=== PATIENT | female | born 1960 | race Caucasian/White ===

== ENCOUNTER → 2020-02-10 11:22 | Outpatient (BNVA) | payer MEDICARE, SELFPAY | PROVIDERS: PCP Family Medicine; Referring Provider Family Medicine; Visit Provider Physician Assistant | DX: M17.0 Bilateral primary osteoarthritis of knee (principal) | CPT/HCPCS: 20610; 99213; J1020 ==

== ENCOUNTER → 2020-05-08 13:02 | Outpatient (BNVA) | payer MEDICARE, SELFPAY | PROVIDERS: PCP Family Medicine; Visit Provider Internal Medicine Cardiovascular Disease | DX: I50.20 Unspecified systolic (congestive) heart failure (principal); I42.8 Other cardiomyopathies; Z95.810 Presence of automatic (implantable) cardiac defibrillator | CPT/HCPCS: 93005; 99212 ==

== ENCOUNTER → 2020-05-29 13:46 | Outpatient (REF) | payer MEDICARE, SELFPAY ==
--- NOTE | 2020-05-29 13:56 | CA_ITS ---
Transthoracic Echocardiogram Patient (Last, First, Middle): Xiomara Avila A Gender: Female Date of : 1960 Age: 60 Procedure Date: 05/29/2020 Procedure Type: Transthoracic Echocardiogram Location: OP Height: 154.94 cm Weight: 80.74 kg BSA: 1.80 m2 Heart Rate: bpm BP: 124 / 58 mmHg Circulation Assistant: Referring MD: Lico Acevedo MD Bilingual Teacher: Lico Acevedo MD Symptoms: I50.20 - Unspecified systolic (congestive) heart failure Study Quality: Fair ECG Rhythm: Sinus Conclusions: - 1. Moderate to severe LV systolic dysfunction with impaired relaxation filling pattern 2. Moderate left atrial enlargement 3. Mild mitral regurgitation 4. Normal RV systolic pressure 5. No pericardial effusion Findings Left Ventricle Mildly increased left ventricular cavity size. There is normal left ventricular wall thickness. The left ventricular systolic function is moderate to severely decreased. The visually estimated ejection fraction is between 30-35%. Spectral Doppler is indicative of an impaired relaxation filling pattern. E/E prime ratio is between 8 and 15 consistent with indeterminate filling pressures. Right Ventricle Normal right ventricular cavity size and systolic function. There is an ICD wire seen in the right ventricle. Atria The left atrium is moderately dilated. There is no evidence of interatrial shunt. The right atrium is likely dilated. Aortic Valve Normal aortic valve structure and function. There is no aortic valve stenosis. There is no aortic valve regurgitation. Mitral Valve There is mild anterior and posterior mitral leaflet thickening. There is mild mitral valve regurgitation. There is no mitral valve stenosis. Pulmonic Valve The pulmonic valve was not well visualized. Tricuspid Valve Likely normal tricuspid valve structure and function. The right ventricular systolic pressure is normal. Normal right atrial pressure. There is no evidence of pulmonary hypertension. Great Vessels All visible segments of the aorta are normal in size. The pulmonary artery was not well visualized. Venous The inferior vena cava is normal in size and collapses greater than 50% with inspiration. Pericardium/Pleural There is no evidence of pericardial effusion. Prior Study Comparison No significant change compared to prior study dated: 01/14/2019. Diastolic filling appears to be more impaired relaxation is an pseudonormal on this study Measurements 2D Linear Measurements IVSd: 1.20 0.6-0.9/0.6-1.0 cm LVIDd: 5.64 3.9-5.3/4.2-5.9 cm LVIDd Index: 3.13 2.4-3.2/2.2-3.1 cm/m2 LVIDs: 4.75 2.0-3.6 cm LVPWd: 1.25 0.7-1.1 cm Ao Root: 3.20 2.1-3.5 cm LA Diam: 4.70 2.7-3.8/3.0-4.0 cm LAIDs Index: 2.61 1.5-2.3 cm/m2 LV Mass: 364.07 67-162/88-224 g LV Mass Index: 202.26 43-95/49-115 g/m2 LVOT Diam: 2.20 3.0+(-)1.3 cm 2D Systolic Function EF 4C: 36.10 >55% EF 2C: 30.60 >55% EF BiP: 33.10 >55% Mitral Valve MV Pk E: 0.66 MV PK A: 0.86 MV Decel Time: 194.00 E/A: 0.80 E'Lateral: 6.96 E'Medial: 5.51 E/E' Med: 12.00 E/E' Lat: 9.50 PHT: 57.00 MVA PHT: 3.86 Decel [place]: 3.41 Aortic Valve AoV Pk Ha: 1.42 AoV Mn Ha: 0.97 AoV VTI: 0.31 AoV Pk Grad: 8.00 Aov Mn Grad: 4.00 MILADIS Cont.VTI: 2.17 LVOT LVOT Pk Ha: 0.82 LVOT Mn Ha: 0.55 LVOT VTI: 0.18 LVOT Pk Grad: 3.00 LVOT Mn Grad: 1.00 LVOT Diam: 2.20 LVOT Area: 3.80 Diastolic Function MV Pk E: 0.66 MV Pk A: 0.86 E/A: 0.80 E'Medial: 5.51 E/E' Med: 12.00 E' Laterial: 6.96 E/E' Lat: 9.50 Tricuspid Valve TR Pk Ha: 2.47 TR Pk Grad: 24.00 RA Press: 3.00 RVSP: 27.00 Great Vessels Aorta Ao Root-2D: 3.20 2.0-3.7 cm Ao Asc: 3.20 2.1-3.4 cm Pulmonary Valve PV Pk Ha: 0.87 Peak PV Grad: 3.00 Updated in Other Vendor System with Status of Final Lico Acevedo MD electronically signed on 05/30/2020 2:46:14 PM with status of Final
== END ==
LOC: HO.CARD 13:46
PROVIDERS: PCP Family Medicine; Visit Provider Internal Medicine Cardiovascular Disease
DX: I42.8 Other cardiomyopathies (principal); I50.20 Unspecified systolic (congestive) heart failure
CPT/HCPCS: 93306

== ENCOUNTER 2020-10-15 08:37 | Outpatient (RCR) | payer MEDICARE, SELFPAY ==
--- NOTE | ~2020-10-15 | XR_ITS ---
EXAMINATION: XR TIBIA AND FIBULA, LEFT CLINICAL INFORMATION: Leg wound COMPARISON: None TECHNIQUE: AP and lateral views of the left tibia and fibula were obtained. FINDINGS: There is orthopedic hardware in the distal fibula with plate and screws. There are 2 screws seen in the medial malleolus. These extend posteriorly through the cortex of the posterior tibia. There is a single screw across the distal tibia and fibula. There is lucency seen adjacent to this screw questionable for evidence of loosening. No fracture is seen. There is increased sclerosis and cortical thickening of the distal tibia, particularly anteriorly questionable for possible chronic osteomyelitis. Versus changes related to trauma. There is soft tissue swelling adjacent to the medial malleolus and overlying dressing. No abnormal air collection or soft tissue foreign body is seen. There are degenerative changes at the knee joint. XR/XR tibia fibula LT 2V IMPRESSION: Orthopedic hardware in the distal tibia and fibula. Lucency adjacent to the screw across the distal tibia and fibula questionable for loosening. Increased sclerosis and cortical thickening of the distal tibia best appreciated on the lateral view questionable for evidence of chronic osteomyelitis. Soft tissue swelling adjacent to the medial ankle. No abnormal air collection or soft tissue foreign body.
[2020-10-19 10:58] LABS: MANUAL DIFF FLAG NO
[2020-10-19 11:18] LABS: Basophils Percent Auto 0.6 % (0-2); Eosinophils Absolute Auto 0.2 X10*3/uL (0.0-0.4); Hematocrit 37.7 % (37-47); Hemoglobin 12.3 g/dl (12.0-16.0); Imm Gran Abs Auto 0.02 X10*3/uL (0.00-0.03); Imm Gran Pct Auto 0.3 % (0.0-0.4); Lymphocytes Absolute Auto 1.8 X10*3/uL (1.2-4.9); Lymphocytes Percent Auto 28.6 % (20-40); Mean Corpuscular HGB Conc 32.6 g/dl (31.0-35.0); Mean Corpuscular Hemoglobin 29.1 pg (27.0-33.0); Mean Corpuscular Volume 89.1 fL (80-98); Mean Platelet Volume 11.1 fL (9.4-12.3); Monocytes Absolute Auto 0.6 X10*3/uL (0.1-1.2); Neutrophils Absolute Auto 3.7 X10*3/uL (2.0-8.3); Neutrophils Percent Auto 57.5 % (45-73); Platelet Count 255 X10*3/uL (160-400); Red Blood Count 4.23 X10*6/uL (4.20-5.50); Red Cell Distribution Width 13.9 % (11.0-16.0); White Blood Count 6.4 X10*3/uL (4.8-10.8)
[2020-10-19 11:28] LABS: Anion Gap 12 (12-20); Blood Urea Nitrogen 30 mg/dL (9-16); Calcium 9.1 mg/dL (8.4-10.2); Carbon Dioxide 25 mmol/L (22-29); Chloride 106 mmol/L (96-108); Estimated Glomerular Filt Rate 48; Glucose Random 112 mg/dL (60-115); Potassium 5.2 mmol/L (3.3-5.1); Sodium 138 mmol/L (135-145)
[2020-10-19 11:50] LABS: Erythrocyte Sedimentation Rate 21 MM/HR (0-20)
[2020-10-19 12:00] LABS: Estimated Average Glucose 123 mg/dL; Hemoglobin A1c % 5.9 %
== END 2021-01-16 15:45 | disposition home or self-care (01) ==
LOC: HO.WCC 08:37
PROVIDERS: Visit Provider Physician Assistant
DX: I87.032 Postthrombotic syndrome with ulcer and inflammation of left lower extremity (principal); L97.822 Non-pressure chronic ulcer of other part of left lower leg with fat layer exposed; T81.31XA Disruption of external operation (surgical) wound, not elsewhere classified, initial encounter; I73.9 Peripheral vascular disease, unspecified; I50.9 Heart failure, unspecified; Z87.891 Personal history of nicotine dependence; Z86.718 Personal history of other venous thrombosis and embolism; Z95.0 Presence of cardiac pacemaker
CPT/HCPCS: 11042; 36415; 73590; 80048; 83036; 84134; 85025; 85652; 86140; 99212

== ENCOUNTER 2020-11-22 09:37 | Outpatient (REF) | payer MEDICARE, SELFPAY ==
--- NOTE | ~2020-11-22 | US_ITS ---
EXAMINATION: Left LOWER EXTREMITY DUPLEX CLINICAL INFORMATION: Nonhealing wound TECHNIQUE: Doppler techniques with wave form analysis and measurement of velocities in the left common femoral, profunda femoral, superficial femoral, popliteal and tibial arteries. The study was performed only at rest. COMPARISON: None FINDINGS: a) AT REST: LEFT LEG: Left direct duplex Doppler findings: There is narrowing in the left mid and distal superficial femoral and popliteal arteries. * Common femoral artery: 119 cm/s, Diastolic flow reversal: Yes * Superficial femoral artery (proximal, mid, distal): 75, 116 and 95 cm/s, Diastolic flow reversal: No. Monophasic.. * Popliteal artery: 100 cm/s, Diastolic flow reversal: No. Monophasic. * Posterior tibial artery: 76 cm/s, Diastolic flow reversal: No. Monophasic. US/US arterial duplex LE LT IMPRESSION: Narrowing of the mid and distal superficial femoral and popliteal arteries. Normal peak systolic velocities. Monophasic flow in the SFA, popliteal and posterior tibial arteries.
--- NOTE | ~2020-11-22 | US_ITS ---
EXAMINATION: US VENOUS ULTRASOUND WITH DOPPLER LOWER EXTREMITY, LEFT CLINICAL INFORMATION: Nonhealing wounds, insufficiency. COMPARISON: None TECHNIQUE: Ultrasound of the deep veins is performed from the hip to the calf with compression sonography and color and pulse Doppler assessment. Spectral analysis with color-flow imaging is performed. FINDINGS: There is normal venous compression and respiratory variation and augmented flow. The visualized common femoral vein, superficial femoral vein, profunda femoral vein, popliteal vein, and the trifurcation region shows no evidence of deep venous thrombosis. There is no significant popliteal fossa cyst. If the patient's symptoms persist, followup ultrasound in 5 days 7 days might be of value to exclude proximal propagation from a non-visualized calf vein. US/US venous duplex LE IMPRESSION: No DVT demonstrated in the left lower extremity.
== END 2020-11-22 09:38 | disposition home or self-care (01) ==
LOC: HO.US 09:37
PROVIDERS: PCP Family Medicine; Visit Provider Physician Assistant
DX: I73.9 Peripheral vascular disease, unspecified (principal); I87.012 Postthrombotic syndrome with ulcer of left lower extremity
CPT/HCPCS: 93926; 93971

== ENCOUNTER → 2021-04-01 09:59 | Outpatient (BNVA) | payer MEDICARE, SELFPAY | PROVIDERS: PCP Family Medicine; Referring Provider Family Medicine; Visit Provider Internal Medicine Cardiovascular Disease | DX: Z45.02 Encounter for adjustment and management of automatic implantable cardiac defibrillator (principal); I50.20 Unspecified systolic (congestive) heart failure | CPT/HCPCS: 99212 ==

== ENCOUNTER → 2021-05-27 09:31 | Outpatient (REF) | payer MEDICARE, SELFPAY ==
--- NOTE | 2021-05-27 09:34 | CA_ITS ---
Transthoracic Echocardiogram Patient (Last, First, Middle): Xiomara Avila A Gender: Female Date of : 1960 Age: 61 Procedure Date: 05/27/2021 Procedure Type: Transthoracic Echocardiogram Location: OP Height: 152.4 cm Weight: 79.38 kg BSA: 1.76 m2 Heart Rate: bpm BP: 110 / 70 mmHg Dumper Bailer Operator: YANA Referring MD: Lico Acevedo MD Sales Director: Lico Acevedo MD Symptoms: I50.20 - Unspecified systolic (congestive) heart failure Study Quality: Fair ECG Rhythm: Sinus Conclusions: - 1. Moderate to severe LV systolic dysfunction with LVEF of 30 35% with grade 1 diastolic dysfunction 2. Mildly dilated left atrium 3. Mild mitral regurgitation 4. Normal RV systolic pressure 5. No pericardial effusion Findings Left Ventricle Moderately increased left ventricular cavity size. There is normal left ventricular wall thickness. The left ventricular systolic function is moderate to severely decreased. The visually estimated ejection fraction is between 30-35%. There is severe global hypokinesis. Spectral Doppler is indicative of an impaired relaxation filling pattern. E/E prime ratio is <8, consistent with normal filling pressures. Evidence suggests grade I (mild) diastolic dysfunction. Right Ventricle Normal right ventricular cavity size and systolic function. There is an ICD wire seen in the right ventricle. Atria The left atrium is mildly dilated. There is no evidence of interatrial shunt. The right atrium is normal in size. Aortic Valve Normal aortic valve structure and function. There is no aortic valve stenosis. There is no aortic valve regurgitation. Mitral Valve Normal mitral valve structure and function. There is mild mitral valve regurgitation. There is no mitral valve stenosis. Pulmonic Valve The pulmonic valve was not well visualized. Tricuspid Valve Normal tricuspid valve structure. There is mild tricuspid valve regurgitation. The right ventricular systolic pressure is normal. The right ventricular systolic pressure is 17 mmHg. Normal right atrial pressure. There is no evidence of pulmonary hypertension. Great Vessels All visible segments of the aorta are normal in size. The pulmonary artery was not well visualized. Venous The inferior vena cava is normal in size and collapses greater than 50% with inspiration. Pericardium/Pleural There is no evidence of pericardial effusion. Prior Study Comparison No significant change compared to prior study dated: 05/29/2020. Measurements 2D Linear Measurements IVSd: 0.96 0.6-0.9/0.6-1.0 cm LVIDd: 6.17 3.9-5.3/4.2-5.9 cm LVIDd Index: 3.51 2.4-3.2/2.2-3.1 cm/m2 LVIDs: 5.04 2.0-3.6 cm LVPWd: 1.16 0.7-1.1 cm Ao Root: 3.30 2.1-3.5 cm LA Diam: 4.00 2.7-3.8/3.0-4.0 cm LAIDs Index: 2.27 1.5-2.3 cm/m2 LV Mass: 348.45 67-162/88-224 g LV Mass Index: 197.98 43-95/49-115 g/m2 LVOT Diam: 2.20 3.0+(-)1.3 cm 2D Systolic Function EF 4C: 29.00 >55% EF 2C: 43.30 >55% EF BiP: 33.40 >55% Mitral Valve MV Pk E: 0.47 MV PK A: 0.73 MV Decel Time: 310.00 E/A: 0.60 E'Lateral: 6.96 E'Medial: 5.44 E/E' Med: 8.50 E/E' Lat: 6.70 PHT: 65.00 MVA PHT: 3.38 Decel [place]: 4.23 Aortic Valve AoV Pk Ha: 1.26 AoV Mn Ha: 0.95 AoV VTI: 0.31 AoV Pk Grad: 6.00 Aov Mn Grad: 4.00 MILADIS Cont.VTI: 2.23 LVOT LVOT Pk Ha: 0.82 LVOT Mn Ha: 0.60 LVOT VTI: 0.18 LVOT Pk Grad: 3.00 LVOT Mn Grad: 2.00 LVOT Diam: 2.20 LVOT Area: 3.80 Diastolic Function MV Pk E: 0.47 MV Pk A: 0.73 E/A: 0.60 E'Medial: 5.44 E/E' Med: 8.50 E' Laterial: 6.96 E/E' Lat: 6.70 Right Ventricle TAPSE (mm): 23.30 TVS' Ha: 7.94 Tricuspid Valve TR Pk Ha: 1.89 TR Pk Grad: 14.00 RA Press: 3.00 RVSP: 17.00 Great Vessels Aorta Ao Root-2D: 3.30 2.0-3.7 cm Ao Asc: 3.10 2.1-3.4 cm Ao Arch: 2.90 Updated in Other Vendor System with Status of Final Lico Acevedo MD electronically signed on 05/28/2021 11:39:40 AM with status of Final
== END ==
LOC: HO.CARD 09:31
PROVIDERS: PCP Family Medicine; Visit Provider Internal Medicine Cardiovascular Disease
DX: I50.20 Unspecified systolic (congestive) heart failure (principal)
CPT/HCPCS: 93306

== ENCOUNTER 2021-10-07 09:30 | Outpatient (REF) | payer MEDICARE, SELFPAY ==
[2021-10-07 11:07] LABS: MANUAL DIFF FLAG NO
[2021-10-07 11:18] LABS: Basophils Percent Auto 0.5 % (0-2); Eosinophils Absolute Auto 0.3 X10*3/uL (0.0-0.4); Eosinophils Percent Auto 3.4 % (0-4); Hematocrit 40.2 % (37.0-47.0); Hemoglobin 12.5 g/dl (12.0-16.0); Imm Gran Abs Auto 0.02 X10*3/uL (0.00-0.03); Imm Gran Pct Auto 0.3 % (0.0-0.4); Lymphocytes Absolute Auto 2.5 X10*3/uL (1.2-4.9); Lymphocytes Percent Auto 33.9 % (20-40); Mean Corpuscular HGB Conc 31.1 g/dl (31.0-35.0); Mean Corpuscular Hemoglobin 28.3 pg (27.0-33.0); Mean Platelet Volume 11.4 fL (9.4-12.3); Monocytes Absolute Auto 0.7 X10*3/uL (0.1-1.2); Monocytes Percent Auto 9.7 % (2-11); Neutrophils Absolute Auto 3.8 x10*3/uL (2.0-8.3); Neutrophils Percent Auto 52.2 % (45-73); Platelet Count 267 X10*3/uL (160-400); Red Blood Count 4.42 X10*6/uL (4.20-5.50); Red Cell Distribution Width 13.3 % (11.0-16.0); White Blood Count 7.3 X10*3/uL (4.8-10.8)
[2021-10-07 12:06] LABS: Alanine Aminotransferase 15 U/L (0-31); Albumin Level 3.8 g/dL (3.5-5.0); Alkaline Phosphatase 84 U/L (39-117); Anion Gap 14 (12-20); Aspartate Amino Transferase 16 U/L (5-31); Bilirubin Total 0.9 mg/dL (0.0-1.0); Blood Urea Nitrogen 22 mg/dL (9-16); Calcium 8.8 mg/dL (8.4-10.2); Carbon Dioxide 25 mmol/L (22-29); Chloride 106 mmol/L (96-108); Cholesterol 180 mg/dL; Estimated Glomerular Filt Rate > 60; Glucose Fasting 95 mg/dL (60-99); HDL Cholesterol 45 mg/dL; LDL Cholesterol Calculated 122 mg/dl; Sodium 141 mmol/L (135-145); TSH reflex Free T4 1.09 uIU/mL (0.32-4.0); Total Protein 6.3 g/dL (6.5-8.0); Triglycerides 68 mg/dL
== END 2021-10-07 09:31 | disposition home or self-care (01) ==
LOC: HO.WFDLDS 09:30
PROVIDERS: Visit Provider Family Medicine
DX: Z00.00 Encounter for general adult medical examination without abnormal findings (principal)
CPT/HCPCS: 36415; 80053; 80061; 84443; 85025

== ENCOUNTER 2022-05-12 11:01 | Outpatient (REF) | payer MEDICARE, SELFPAY ==
[2022-05-12 12:45] LABS: Appearance Urine Turbid; Color Urine Yellow; Glucose Urine UA Negative (Negative); Leukocyte Esterase Urine Large (3+) (Negative); Nitrite Urine Negative (Negative); PH 5.5 (5.0-9.0); UMIC TRIGGER UA YES; Urine Blood Trace (Negative); Urine Ketones Negative (Negative); Urine Protein Negative (Neg-Trace)
[2022-05-12 12:49] LABS: Bacteria Urine None Seen (None Seen); Hyaline Casts Urine 0-2 /LPF (0-2); RBC Urine 0-2 /HPF (0-2); WBC Urine >50 /HPF (0-5)
== END 2022-05-12 11:02 | disposition home or self-care (01) ==
LOC: HO.LAB 11:01
PROVIDERS: PCP Family Medicine; Referring Provider Family Medicine; Visit Provider Internal Medicine Cardiovascular Disease
DX: I50.20 Unspecified systolic (congestive) heart failure (principal); Z95.810 Presence of automatic (implantable) cardiac defibrillator; Z45.018 Encounter for adjustment and management of other part of cardiac pacemaker; Z79.899 Other long term (current) drug therapy
CPT/HCPCS: 81001; 93005; 99212

== ENCOUNTER → 2022-05-26 12:42 | Outpatient (REF) | payer MEDICARE, MEDICAID, SELFPAY ==
--- NOTE | 2022-05-26 12:44 | CA_ITS ---
Transthoracic Echocardiogram Patient (Last, First, Middle): Xiomara Avila A Gender: Female Date of : 1960 Age: 62 Procedure Date: 05/26/2022 Procedure Type: Transthoracic Echocardiogram Location: OP Height: 154.94 cm Weight: 82.56 kg BSA: 1.81 m2 Heart Rate: 60 bpm BP: 110 / 70 mmHg Grout Worker: ASPEN Referring MD: Lico Acevedo MD Symptoms: I50.20 - Unspecified systolic (congestive) heart failure Study Quality: Adequate ECG Rhythm: Sinus Conclusions: - The left ventricular systolic function is severely decreased. The visually estimated ejection fraction is between 25-30%. - No obvious valvular pathology seen on this study. Findings Left Ventricle Moderately increased left ventricular cavity size. There is normal left ventricular wall thickness. The left ventricular systolic function is severely decreased. The visually estimated ejection fraction is between 25 30%. There is severe global hypokinesis. E/E prime ratio is between 8 and 15 consistent with indeterminate filling pressures. Evidence suggests grade I (mild) diastolic dysfunction. Right Ventricle Normal right ventricular cavity size and systolic function. Atria Both atria are normal in size. Aortic Valve There is a normal trileaflet aortic valve. There is no aortic valve stenosis. There is no aortic valve regurgitation. Mitral Valve The mitral valve appears normal. There is mild mitral valve regurgitation. There is no mitral valve stenosis. Pulmonic Valve The pulmonic valve is likely normal. Tricuspid Valve Normal tricuspid valve structure. There is trace tricuspid valve regurgitation. There is no evidence of pulmonary hypertension. Great Vessels The asc aorta is normal in size. Venous The inferior vena cava is normal in size and collapses greater than 50% with inspiration. Pericardium/Pleural There is no evidence of pericardial effusion. Prior Study Comparison No significant change compared to prior study dated: 05/27/2021. Slight change in LVEF, but could also be inter-observer variability. Recommendations, Care & Conclusions No obvious valvular pathology seen on this study. Measurements 2D Linear Measurements IVSd: 1.00 0.6-0.9/0.6-1.0 cm LVIDd: 5.85 3.9-5.3/4.2-5.9 cm LVIDd Index: 3.23 2.4-3.2/2.2-3.1 cm/m2 LVIDs: 4.65 2.0-3.6 cm LVPWd: 0.97 0.7-1.1 cm LA Diam: 3.80 2.7-3.8/3.0-4.0 cm LAIDs Index: 2.10 1.5-2.3 cm/m2 LV Mass: 288.18 67-162/88-224 g LV Mass Index: 159.21 43-95/49-115 g/m2 LVOT Diam: 2.30 3.0+(-)1.3 cm 2D Systolic Function EF 4C: 41.20 >55% EF 2C: 39.60 >55% Mitral Valve MV Pk E: 0.56 MV PK A: 0.75 MV Decel Time: 222.00 E/A: 0.70 E'Lateral: 5.48 E'Medial: 3.75 E/E' Med: 15.00 E/E' Lat: 10.20 PHT: 65.00 MVA PHT: 3.38 Decel [place]: 2.53 Aortic Valve AoV Pk Ha: 1.20 AoV Mn Ha: 0.93 AoV VTI: 0.26 AoV Pk Grad: 6.00 Aov Mn Grad: 4.00 MILADIS Cont.VTI: 2.65 LVOT LVOT Pk Ha: 0.80 LVOT Mn Ha: 0.60 LVOT VTI: 0.16 LVOT Pk Grad: 3.00 LVOT Mn Grad: 2.00 LVOT Diam: 2.30 LVOT Area: 4.15 Diastolic Function MV Pk E: 0.56 MV Pk A: 0.75 E/A: 0.70 E'Medial: 3.75 E/E' Med: 15.00 E' Laterial: 5.48 E/E' Lat: 10.20 Right Ventricle TAPSE (mm): 18.30 TVS' Ha: 11.30 Tricuspid Valve TR Pk Ha: 1.84 TR Pk Grad: 14.00 RA Press: 3.00 RVSP: 17.00 Great Vessels Aorta Sinus of Valsalva: 3.50 2.0-3.5 cm Ao Asc: 3.10 2.1-3.4 cm Pulmonary Valve PV Pk Ha: 0.85 Peak PV Grad: 3.00 Updated in Other Vendor System with Status of Final Marco Burrows MD electronically signed on 05/27/2022 11:01:34 AM with status of Final
== END ==
LOC: HO.CARD 12:42
PROVIDERS: PCP Family Medicine; Visit Provider Internal Medicine Cardiovascular Disease
DX: I50.20 Unspecified systolic (congestive) heart failure (principal)
CPT/HCPCS: 93306

== ENCOUNTER → 2022-07-17 09:43 | Outpatient (BNVA) | payer MEDICARE, MEDICAID, SELFPAY | PROVIDERS: PCP Family Medicine; Visit Provider Orthopaedic Surgery | DX: M17.0 Bilateral primary osteoarthritis of knee (principal) | CPT/HCPCS: 20610; 99212; J1100 ==

== ENCOUNTER → 2022-11-06 09:53 | Outpatient (BNVA) | payer MEDICARE, MEDICAID, SELFPAY | PROVIDERS: PCP Family Medicine; Referring Provider Family Medicine; Visit Provider Internal Medicine Cardiovascular Disease | DX: I50.20 Unspecified systolic (congestive) heart failure (principal); I42.8 Other cardiomyopathies; Z95.810 Presence of automatic (implantable) cardiac defibrillator | CPT/HCPCS: 99212 ==

== ENCOUNTER 2022-11-21 09:30 | Outpatient (REF) | payer MEDICARE, MEDICAID, SELFPAY ==
[2022-11-21 12:51] LABS: Appearance Urine Clear; Color Urine Straw; Glucose Urine UA 500 mg/dL (Negative); Leukocyte Esterase Urine Negative (Negative); Nitrite Urine Negative (Negative); PH 6.5 (5.0-9.0); Specific Gravity - Urine <= 1.005 (1.005-1.025); Urine Blood Negative (Negative); Urine Ketones Negative (Negative); Urine Protein Negative (Neg-Trace)
[2022-11-21 14:31] LABS: Creatinine Urine 16.15 mg/dL; Microalbumin Urine < 5.0 mg/L
[2022-11-21 14:45] LABS: Alanine Aminotransferase 20 U/L (0-31); Albumin Level 3.9 g/dL (3.5-5.0); Alkaline Phosphatase 96 U/L (39-117); Anion Gap 13 (12-20); Aspartate Amino Transferase 23 U/L (5-31); Bilirubin Total 0.4 mg/dL (0.0-1.0); Blood Urea Nitrogen 21 mg/dL (9-16); Calcium 9.4 mg/dL (8.4-10.2); Carbon Dioxide 26 mmol/L (22-29); Chloride 104 mmol/L (96-108); Cholesterol 189 mg/dL; Estimated Glomerular Filt Rate > 60; Glucose Fasting 122 mg/dL (60-99); HDL Cholesterol 54 mg/dL; LDL Cholesterol Calculated 117 mg/dl; Potassium 3.5 mmol/L (3.3-5.1); Sodium 139 mmol/L (135-145); Total Protein 6.9 g/dL (6.5-8.0); Triglycerides 93 mg/dL
[2022-11-21 15:00] LABS: TSH reflex Free T4 1.09 uIU/mL (0.32-4.0)
[2022-11-21 15:35] LABS: B Type Natriuretic Peptide 61 pg/mL (<100)
== END 2022-11-21 09:31 | disposition home or self-care (01) ==
LOC: HO.WFDLDS 09:30
PROVIDERS: Internal Medicine Cardiovascular Disease; Visit Provider Family Medicine
DX: Z00.00 Encounter for general adult medical examination without abnormal findings (principal); M17.0 Bilateral primary osteoarthritis of knee; I11.0 Hypertensive heart disease with heart failure; I50.20 Unspecified systolic (congestive) heart failure
CPT/HCPCS: 36415; 80053; 80061; 81003; 82043; 83880; 84443

== ENCOUNTER → 2022-11-26 23:59 | Outpatient (BNV) | payer MEDICARE, MEDICAID, SELFPAY ==
--- NOTE | 2022-12-03 14:37 | MHC.OFFVIS ---
Intake Intake Visit Reasons: Remote HF Monitoring- [employer] Allergies No Known Allergies Allergy (Verified 07/17/22 10:03) PFS Medical History Edema Heart failure with reduced ejection fraction ICD (implantable cardioverter-defibrillator) in place Nonischemic cardiomyopathy Surgical History History of implantable cardiac defibrillator (ICD) (~07/2015) History of left knee surgery History of surgery on lower extremity (2020) Hx of cholecystectomy Family History Father CVD (cardiovascular disease) Mother CVD (cardiovascular disease) Pulmonary embolism Brother No problems noted. Brother No problems noted. Son No problems noted. Daughter No problems noted. Social History Housing: House Patient Tobacco Use Status: Current someday Tobacco user e-Cigarette/Vaping Use: Never Used Second Hand Smoke Exposure: No service: No Current occupational status: disabled Current occupational exposures/hazards: No Cognitive needs: No Hearing needs: No Vision needs: No Office Procedures Cardiac Device Check Cardiac Device Check Details: Remote heart failure report generated 11/26/2022. Heart failure parameters are stable [id number] Cardiac Device Interrogation, cardio physiologic monitor Procedure code (CPT) selection complete Coding Level of Care Code Procedure Only Diagnoses CPT Codes Cardiac Device Check - Cardiac Device 15: [id number] Cardiac Device Interrogation, cardio physiologic monitor ([id number])
== END ==
PROVIDERS: PCP Family Medicine; Visit Provider Internal Medicine Cardiovascular Disease
DX: I50.20 Unspecified systolic (congestive) heart failure (principal); Z95.810 Presence of automatic (implantable) cardiac defibrillator
CPT/HCPCS: 93297

== ENCOUNTER → 2022-12-30 23:59 | Outpatient (BNV) | payer MEDICARE, MEDICAID, SELFPAY ==
--- NOTE | 2023-01-01 11:20 | MHC.OFFVIS ---
Intake Intake Visit Reasons: Remote HF monitoring- [employer] Allergies No Known Allergies Allergy (Verified 12/16/22 11:03) PFSH Medical History Edema Heart failure with reduced ejection fraction ICD (implantable cardioverter-defibrillator) in place Nonischemic cardiomyopathy Surgical History History of implantable cardiac defibrillator (ICD) (~07/2015) History of left knee surgery History of surgery on lower extremity (2020) Hx of cholecystectomy Family History Father CVD (cardiovascular disease) Mother CVD (cardiovascular disease) Pulmonary embolism Brother No problems noted. Brother No problems noted. Son No problems noted. Daughter No problems noted. Social History Housing: House Patient Tobacco Use Status: Current someday Tobacco user Tobacco use type: Cigarette e-Cigarette/Vaping Use: Never Used Second Hand Smoke Exposure: No service: No Current occupational status: disabled Current occupational exposures/hazards: No Cognitive needs: No Hearing needs: No Vision needs: No Office Procedures Cardiac Device Check Cardiac Device Check Details: Remote heart failure report generated 12/30/2022. Heart failure parameters are stable [id number] Cardiac Device Interrogation, cardio physiologic monitor Procedure code (CPT) selection complete Coding Level of Care Code Procedure Only Diagnoses CPT Codes Cardiac Device Check - Cardiac Device 15: [id number] Cardiac Device Interrogation, cardio physiologic monitor ([id number])
== END ==
PROVIDERS: PCP Family Medicine; Visit Provider Internal Medicine Cardiovascular Disease
DX: I50.20 Unspecified systolic (congestive) heart failure (principal); Z95.810 Presence of automatic (implantable) cardiac defibrillator
CPT/HCPCS: 93297

== ENCOUNTER → 2023-02-02 23:59 | Outpatient (BNV) | payer MEDICARE, MEDICAID, SELFPAY ==
--- NOTE | 2023-02-02 12:58 | MHC.OFFVIS ---
Intake Intake Visit Reasons: Remote ICD Check- [employer] Allergies No Known Allergies Allergy (Verified 12/16/22 11:03) [facility] Medical History Edema Heart failure with reduced ejection fraction ICD (implantable cardioverter-defibrillator) in place Nonischemic cardiomyopathy Surgical History History of implantable cardiac defibrillator (ICD) (~07/2015) History of left knee surgery History of surgery on lower extremity (2020) Hx of cholecystectomy Family History Father CVD (cardiovascular disease) Mother CVD (cardiovascular disease) Pulmonary embolism Brother No problems noted. Brother No problems noted. Son No problems noted. Daughter No problems noted. Social History Housing: House Patient Tobacco Use Status: Current someday Tobacco user Tobacco use type: Cigarette e-Cigarette/Vaping Use: Never Used Second Hand Smoke Exposure: No service: No Current occupational status: disabled Current occupational exposures/hazards: No Cognitive needs: No Hearing needs: No Vision needs: No Office Procedures Cardiac Device Check Cardiac Device Check Details: Remote ICD report generated 02/02/2023. ICD function is adequate [id number] Cardiac Interrogation, implant defibrillator w/interim Procedure code (CPT) selection complete Coding Level of Care Code Procedure Only CPT Codes Cardiac Device Check - Cardiac Device 13: [id number] Cardiac Interrogation, implant defibrillator w/interim ([id number])
== END ==
PROVIDERS: PCP Family Medicine; Visit Provider Internal Medicine Cardiovascular Disease
DX: I42.8 Other cardiomyopathies (principal); Z95.0 Presence of cardiac pacemaker
CPT/HCPCS: 93295

== ENCOUNTER → 2023-02-02 23:59 | Outpatient (BNV) | payer MEDICARE, MEDICAID, SELFPAY ==
--- NOTE | 2023-02-02 12:59 | MHC.OFFVIS ---
Intake Intake Visit Reasons: Remote HF Monitoring- [employer] Allergies No Known Allergies Allergy (Verified 12/16/22 11:03) PFSH Medical History Edema Heart failure with reduced ejection fraction ICD (implantable cardioverter-defibrillator) in place Nonischemic cardiomyopathy Surgical History History of implantable cardiac defibrillator (ICD) (~07/2015) History of left knee surgery History of surgery on lower extremity (2020) Hx of cholecystectomy Family History Father CVD (cardiovascular disease) Mother CVD (cardiovascular disease) Pulmonary embolism Brother No problems noted. Brother No problems noted. Son No problems noted. Daughter No problems noted. Social History Housing: House Patient Tobacco Use Status: Current someday Tobacco user Tobacco use type: Cigarette e-Cigarette/Vaping Use: Never Used Second Hand Smoke Exposure: No service: No Current occupational status: disabled Current occupational exposures/hazards: No Cognitive needs: No Hearing needs: No Vision needs: No Office Procedures Cardiac Device Check Cardiac Device Check Details: Remote heart failure report generated 02/02/2023. Heart failure parameters are stable [id number] Cardiac Device Interrogation, cardio physiologic monitor Procedure code (CPT) selection complete Coding Level of Care Code Procedure Only CPT Codes Cardiac Device Check - Cardiac Device 15: [id number] Cardiac Device Interrogation, cardio physiologic monitor ([id number])
== END ==
PROVIDERS: PCP Family Medicine; Visit Provider Internal Medicine Cardiovascular Disease
DX: I50.20 Unspecified systolic (congestive) heart failure (principal); Z95.810 Presence of automatic (implantable) cardiac defibrillator
CPT/HCPCS: 93297

== ENCOUNTER 2023-02-20 10:09 | Outpatient (AMB) | payer MEDICARE, MEDICAID, SELFPAY ==
--- NOTE | 2023-02-20 10:13 | A.OFFVIS_ITS ---
Intake Vital Signs 02/20/23 10:19 Height 5 ft 1 in Weight 205 lb BMI 38.7 Intake Visit Reasons: OV-B/L knee injection-last 07/17/22 Intake Note: Xiomara 62 yr old female presents today for her bilateral O.A knee pain, last injection 07/17/22. Patient reports last injeciton provided her good relief for about 3-4 months. She is requesting to repeat injections. Allergies No Known Allergies Allergy (Verified 02/20/23 10:19) HPI OV-B/L knee injection-last 07/17/22 HPI Details 63-year-old female who returns to the [facility] today for a bilateral knee pain. She had her last injection on 07/17/22 which provided her relief for about 4 months. She would like to repeat the injection. [facility] Medical History Edema Heart failure with reduced ejection fraction ICD (implantable cardioverter-defibrillator) in place Nonischemic cardiomyopathy Surgical History History of surgery on lower extremity (2020) History of implantable cardiac defibrillator (ICD) (~07/2015) History of left knee surgery Hx of cholecystectomy Family History Father CVD (cardiovascular disease) Mother CVD (cardiovascular disease) Pulmonary embolism Brother No problems noted. Brother No problems noted. Son No problems noted. Daughter No problems noted. Social History Housing: House Patient Tobacco Use Status: Current someday Tobacco user Tobacco use type: Cigarette e-Cigarette/Vaping Use: Never Used Second Hand Smoke Exposure: No service: No Current occupational status: disabled Current occupational exposures/hazards: No Cognitive needs: No Hearing needs: No Vision needs: No Review of Systems Const All systems reviewed & are unremarkable except as noted in HPI and below Physical Exam Vital Signs: BMI result Body Mass Index 38.7 Extrem Right lower extremity: normal to inspection, full ROM (with crepitus) and no joint enlargement Left lower extremity: normal to inspection, full ROM and no joint enlargement Office Procedures Joint Injection/Drain Joint Injection/Drain Primary Site: right knee Secondary Site: left knee Prep: site was prepped using aseptic technique, ethochloride spray was applied and injection warnings given Injected: 80 mg of, DepoMedrol, with 8 mL of, 1% plain lidocaine and in the joint Approach Used: anterolateral Procedure: The patient tolerated the procedure well and there was some relief with the local anesthesia Coding 86421 - Glenohumeral/Tronchanteric Bursa/Intraarticular Procedure code (CPT) selection complete Results Reviewed Results Reviewed: 02/20/23 10:18 Lidocaine HCl 2 % MPF [Xylocaine 2 % MPF] 5 ml .ROUTE .STK-MED ONE methylPREDNISolone acetate [DEPO-MedroL] 80 mg .ROUTE .STK-MED ONE Assessment & Plan Assessment & Plan (1) Bilateral primary osteoarthritis of knee: Code(s): M17.0 - Bilateral primary osteoarthritis of knee Plan We discussed options today which include steroid injection. They did consent to move forward with the bilateral knee injection, which was tolerated well. I recommended rest, ice and elevation and OTC anti-inflammatories PRN for discomfort. If symptoms persist or worsens over the next 6-8 weeks, patient will contact the office, otherwise follow-up as needed. Patient Instructions: Scribed for Maria Eugenia Alcazar PA-C, by Sincere Keith emergency medical dispatcher, on 02/20/2023 at 10:15 AM DIANA. Maria Eugenia Napoles PA-C, have personally reviewed and agree with the information entered by the scribe. Coding Level of Care Code Est Pt Level 3 (73719) Diagnoses Bilateral primary osteoarthritis of knee M17.0 CPT Codes Coding - Joint 7: 74022 - Glenohumeral/Tronchanteric Bursa/Intraarticular ([id number])
[2023-02-20 10:19] VITALS: BMI 38.7
== END 2023-02-20 11:11 | disposition home or self-care (01) ==
PROVIDERS: PCP Family Medicine; Visit Provider Physician Assistant
DX: M17.0 Bilateral primary osteoarthritis of knee (principal)
CPT/HCPCS: 20610; 99213

== ENCOUNTER → 2023-02-20 10:09 | Outpatient (BNVA) | payer MEDICARE, MEDICAID, SELFPAY | PROVIDERS: PCP Family Medicine; Visit Provider Physician Assistant | DX: M17.0 Bilateral primary osteoarthritis of knee (principal); R60.0 Localized edema; I42.8 Other cardiomyopathies; I50.20 Unspecified systolic (congestive) heart failure; F17.210 Nicotine dependence, cigarettes, uncomplicated; Z95.810 Presence of automatic (implantable) cardiac defibrillator | CPT/HCPCS: 20610; 99212; J1040 ==

== ENCOUNTER → 2023-03-08 23:59 | Outpatient (BNV) | payer MEDICARE, MEDICAID, SELFPAY ==
--- NOTE | 2023-03-09 15:14 | A.OFFVIS_ITS ---
Intake Intake Visit Reasons: Remote HF Monitoring- Medtronic Allergies No Known Allergies Allergy (Verified 02/20/23 10:19) [facility] Medical History Edema Heart failure with reduced ejection fraction ICD (implantable cardioverter-defibrillator) in place Nonischemic cardiomyopathy Surgical History History of surgery on lower extremity (2020) History of implantable cardiac defibrillator (ICD) (~07/2015) History of left knee surgery Hx of cholecystectomy Family History Father CVD (cardiovascular disease) Mother CVD (cardiovascular disease) Pulmonary embolism Brother No problems noted. Brother No problems noted. Son No problems noted. Daughter No problems noted. Social History Housing: House Patient Tobacco Use Status: Current someday Tobacco user Tobacco use type: Cigarette e-Cigarette/Vaping Use: Never Used Second Hand Smoke Exposure: No service: No Current occupational status: disabled Current occupational exposures/hazards: No Cognitive needs: No Hearing needs: No Vision needs: No Office Procedures Cardiac Device Check Cardiac Device Check Details: Remote heart failure report generated 03/08/2023. Heart failure parameters are stable [id number] Cardiac Device Interrogation, cardio physiologic monitor Procedure code (CPT) selection complete Coding Level of Care Code Procedure Only CPT Codes Cardiac Device Check - Cardiac Device 15: 29516-Snsrbi Cardiac Device Interrogation, cardio physiologic monitor ([id number])
== END ==
PROVIDERS: PCP Family Medicine; Visit Provider Internal Medicine Cardiovascular Disease
DX: I50.20 Unspecified systolic (congestive) heart failure (principal); Z95.810 Presence of automatic (implantable) cardiac defibrillator
CPT/HCPCS: 93297

== ENCOUNTER → 2023-04-11 23:59 | Outpatient (BNV) | payer MEDICARE, MEDICAID, SELFPAY ==
--- NOTE | 2023-04-13 11:27 | MHC.OFFVIS ---
Intake Intake Visit Reasons: Remote HF Monitoring- Medtronic Allergies No Known Allergies Allergy (Verified 03/17/23 11:12) [facility] Medical History Edema Heart failure with reduced ejection fraction ICD (implantable cardioverter-defibrillator) in place Nonischemic cardiomyopathy Surgical History History of surgery on lower extremity (2020) History of implantable cardiac defibrillator (ICD) (~07/2015) History of left knee surgery Hx of cholecystectomy Family History Father CVD (cardiovascular disease) Mother CVD (cardiovascular disease) Pulmonary embolism Brother No problems noted. Brother No problems noted. Son No problems noted. Daughter No problems noted. Social History Housing: House Patient Tobacco Use Status: Current someday Tobacco user Tobacco use type: Cigarette e-Cigarette/Vaping Use: Never Used Second Hand Smoke Exposure: No service: No Current occupational status: disabled Current occupational exposures/hazards: No Cognitive needs: No Hearing needs: No Vision needs: No Office Procedures Cardiac Device Check Cardiac Device Check Details: Remote heart failure report generated 04/11/2023. Heart failure parameters are rising but still below acceptable limits. [id number] Cardiac Device Interrogation, cardio physiologic monitor Procedure code (CPT) selection complete Assessment & Plan Assessment & Plan (1) ICD (implantable cardioverter-defibrillator) in place: Comment: Medtronic dual-chamber ICD Code(s): Z95.810 - Presence of automatic (implantable) cardiac defibrillator Plan: Will follow-up with the patient why the telephone Coding Level of Care Code Procedure Only Diagnoses ICD (implantable cardioverter-defibrillator) in place Z95.810 CPT Codes Cardiac Device Check - Cardiac Device 15: [id number]-Ywryhv Cardiac Device Interrogation, cardio physiologic monitor ([id number])
== END ==
PROVIDERS: PCP Family Medicine; Visit Provider Internal Medicine Cardiovascular Disease
DX: I50.20 Unspecified systolic (congestive) heart failure (principal); Z95.810 Presence of automatic (implantable) cardiac defibrillator
CPT/HCPCS: 93297

== ENCOUNTER → 2023-05-07 09:51 | Outpatient (REF) | payer MEDICARE, SELFPAY | LOC: HO.CARD 09:51 | PROVIDERS: PCP Family Medicine; Visit Provider Internal Medicine Cardiovascular Disease | DX: I50.20 Unspecified systolic (congestive) heart failure (principal) | CPT/HCPCS: 93306; 93356 ==

== ENCOUNTER → 2023-05-07 09:56 | Outpatient (BNV) | payer MEDICARE, SELFPAY | PROVIDERS: PCP Family Medicine; Visit Provider Internal Medicine Cardiovascular Disease | DX: I50.20 Unspecified systolic (congestive) heart failure (principal) | CPT/HCPCS: 93306 ==

== ENCOUNTER → 2023-05-15 23:59 | Outpatient (BNV) | payer MEDICARE, SELFPAY ==
--- NOTE | 2023-05-18 12:17 | A.OFFVIS_ITS ---
Intake Intake Visit Reasons: Remote ICD Check- Medtronic Allergies No Known Allergies Allergy (Verified 03/17/23 11:12) [facility] Medical History Edema Heart failure with reduced ejection fraction ICD (implantable cardioverter-defibrillator) in place Nonischemic cardiomyopathy Surgical History History of surgery on lower extremity (2020) History of implantable cardiac defibrillator (ICD) (~07/2015) History of left knee surgery Hx of cholecystectomy Family History Father CVD (cardiovascular disease) Mother CVD (cardiovascular disease) Pulmonary embolism Brother No problems noted. Brother No problems noted. Son No problems noted. Daughter No problems noted. Social History Housing: House Patient Tobacco Use Status: Current someday Tobacco user Tobacco use type: Cigarette e-Cigarette/Vaping Use: Never Used Second Hand Smoke Exposure: No service: No Current occupational status: disabled Current occupational exposures/hazards: No Cognitive needs: No Hearing needs: No Vision needs: No Office Procedures Cardiac Device Check Cardiac Device Check Details: Remote ICD report generated 05/15/2023. ICD function is adequate. [id number]-Pvbzaj Cardiac Interrogation, implant defibrillator w/interim Procedure code (CPT) selection complete Assessment & Plan Assessment & Plan (1) ICD (implantable cardioverter-defibrillator) in place: Comment: Medtronic dual-chamber ICD Code(s): Z95.810 - Presence of automatic (implantable) cardiac defibrillator Plan: See above Coding Level of Care Code Procedure Only Diagnoses ICD (implantable cardioverter-defibrillator) in place Z95.810 CPT Codes Cardiac Device Check - Cardiac Device 13: 06983-Sbaaqy Cardiac Interrogation, implant defibrillator w/interim ([id number])
== END ==
PROVIDERS: PCP Family Medicine; Visit Provider Internal Medicine Cardiovascular Disease
DX: I50.20 Unspecified systolic (congestive) heart failure (principal); Z95.810 Presence of automatic (implantable) cardiac defibrillator
CPT/HCPCS: 93295

== ENCOUNTER → 2023-05-15 23:59 | Outpatient (BNV) | payer MEDICARE, SELFPAY ==
--- NOTE | 2023-05-18 12:17 | MHC.OFFVIS ---
Intake Intake Visit Reasons: Remote HF Monitoring- Medtronic Allergies No Known Allergies Allergy (Verified 03/17/23 11:12) [facility] Medical History Edema Heart failure with reduced ejection fraction ICD (implantable cardioverter-defibrillator) in place Nonischemic cardiomyopathy Surgical History History of surgery on lower extremity (2020) History of implantable cardiac defibrillator (ICD) (~07/2015) History of left knee surgery Hx of cholecystectomy Family History Father CVD (cardiovascular disease) Mother CVD (cardiovascular disease) Pulmonary embolism Brother No problems noted. Brother No problems noted. Son No problems noted. Daughter No problems noted. Social History Housing: House Patient Tobacco Use Status: Current someday Tobacco user Tobacco use type: Cigarette e-Cigarette/Vaping Use: Never Used Second Hand Smoke Exposure: No service: No Current occupational status: disabled Current occupational exposures/hazards: No Cognitive needs: No Hearing needs: No Vision needs: No Office Procedures Cardiac Device Check Cardiac Device Check Details: Remote heart failure report generated 05/15/2023. Heart failure parameters are within normal range [id number]-[id number] Cardiac Device Interrogation, cardio physiologic monitor Procedure code (CPT) selection complete Assessment & Plan Assessment & Plan (1) ICD (implantable cardioverter-defibrillator) in place: Comment: Medtronic dual-chamber ICD Code(s): Z95.810 - Presence of automatic (implantable) cardiac defibrillator Plan: See above Coding Level of Care Code Procedure Only Diagnoses ICD (implantable cardioverter-defibrillator) in place Z95.810 CPT Codes Cardiac Device Check - Cardiac Device 15: 56094-Umxngf Cardiac Device Interrogation, cardio physiologic monitor ([id number])
== END ==
PROVIDERS: PCP Family Medicine; Visit Provider Internal Medicine Cardiovascular Disease
DX: I50.20 Unspecified systolic (congestive) heart failure (principal); Z95.810 Presence of automatic (implantable) cardiac defibrillator
CPT/HCPCS: 93297

== ENCOUNTER 2023-05-21 10:54 | Outpatient (AMB) | payer MEDICARE, SELFPAY ==
[2023-05-21 10:57] VITALS: BP 120/74; PULSE 72; BMI 38.7
--- NOTE | 2023-05-21 10:57 | A.OFFVIS_ITS ---
Intake Vital Signs 05/21/23 10:57 Height 5 ft 1 in Weight 205 lb 0.478 oz BMI 38.7 BP 120/74 Blood Pressure Location Lt brachial Position Sitting Pulse 72 Intake Visit Reasons: 6 mth w/ defib ck Intake Note: 6 month follow-up with ekg and medtronic check feeling good Application Software Developer Required: No Allergies No Known Allergies Allergy (Verified 03/17/23 11:12) Medication List - Last Reconciled 05/21/23 by Lico Acevedo MD alprazolam 0.5 mg PO TID buprenorphine-naloxone 8-2 mg 0 mg sublingual carvedilol 12.5 mg PO BID empagliflozin (Jardiance) 10 mg PO DAILY furosemide 40 mg PO BID gabapentin 800 mg PO BEDTIME 90 days gabapentin 600 mg PO QID ibuprofen 600 mg PO TID PRN sacubitril-valsartan 24-26 mg (Entresto) 1 tab PO BID HPI HPI Comments History of Present Illness Details Xiomara comes for follow-up. She has been doing very well from cardiac perspective. NYHA class 1 symptoms. Remains active for a day-to-day activities. Denies any lightheadedness, syncope. No prolonged palpitation irregular heartbeat or ICD discharge. Denies any orthopnea, PND, worsening shortness of breath, leg edema, abdominal distension. Takes all her medications. [facility] Medical History Heart failure with reduced ejection fraction Nonischemic cardiomyopathy ICD (implantable cardioverter-defibrillator) in place Edema Surgical History History of surgery on lower extremity (2020) History of implantable cardiac defibrillator (ICD) (~07/2015) History of left knee surgery Hx of cholecystectomy Family History Father CVD (cardiovascular disease) Mother CVD (cardiovascular disease) Pulmonary embolism Brother No problems noted. Brother No problems noted. Son No problems noted. Daughter No problems noted. Social History Housing: House Patient Tobacco Use Status: Current someday Tobacco user Tobacco use type: Cigarette e-Cigarette/Vaping Use: Never Used Second Hand Smoke Exposure: No service: No Current occupational status: disabled Current occupational exposures/hazards: No Cognitive needs: No Hearing needs: No Vision needs: No Review of Systems Const Denies chills, Denies fatigue, Denies fever(s), Denies frequent falls, Denies weakness, Denies weight gain and Denies weight loss ENT Denies dizziness Card Denies chest pain, Denies leg edema, Denies lightheadedness, Denies palpitations, Denies dyspnea, Denies dyspnea on exertion, Denies orthopnea and Denies other (loss of consciousness) Resp Denies cough, Denies dyspnea and Denies dyspnea on exertion GI Denies hematochezia and Denies change in stool character Musc Denies abnormal gait, Denies muscle weakness, Denies numbness, Denies radiating pain into limb and Denies tingling Neuro Denies abnormal gait, Denies dizziness, Denies frequent falls, Denies numbness, Denies tingling and Denies weakness Endo Denies fatigue and Denies palpitations Physical Exam Vital Signs: Last Vital Signs Pulse 72 05/21/23 10:57 BP 120/74 05/21/23 10:57 BMI result Body Mass Index 38.7 Const General: cooperative, comfortable, no acute distress, alert and awake Nutritional Appearance: obese Orientation/consciousness: patient oriented x3 Limitations: no limitations HEENT Head: Yes normocephalic Neck Neck: Yes trachea midline, Yes supple and Yes no JVD Chest Chest palpation & inspection: normal inspection of the chest Resp Effort & Inspection: normal respiratory effort Auscultation: clear to auscultation bilaterally Cardio Jugular venous distension: no JVD Rate: regular rate Rhythm: regular rhythm and abnormal rhythm with ectopic beats Heart sounds: S1 normal heart sound present and S2 normal heart sound present GI Auscultation: normal bowel sounds Skin General skin exam: no rashes or lesions noted Neuro General: patient oriented x3 and no focal motor deficits Extrem General: Yes other (Left lower extremity swollen and red with wounds near both her malleoli, no) Psych Appearance: grossly normal Office Procedures Cardiac Device Check Cardiac Device Check Details: Dual-chamber Medtronic ICD in place. Programmed in MVP mode with rate response at 60 beats per minute. Atrial pacing 43% of the time. No significant episodes of atrial fibrillation noted. Atrial pacing thresholds excellent and reprogrammed to enhance battery life. Ventricular pacing thresholds are stable and reprogrammed to enhance battery life. Pacing and shock lead impedance is stable. Atrial sensitivity at 1.1 mV, unchanged from before. Ventricular sensitivity is excellent. Battery life is at 21 months. [id number] Cardiac Device Check, dual lead implantable defibrillator Procedure code (CPT) selection complete EKG Details: EKG shows atrially paced rhythm with poor R-wave progression most likely due to lead placement and body habitus with nonspecific ST T wave changes suggestive of repolarization abnormality [id number], Complete Assessment & Plan Assessment & Plan (1) Heart failure with reduced ejection fraction: Code(s): I50.20 - Unspecified systolic (congestive) heart failure Plan: Heart failure with reduced ejection fraction with stable LV ejection fraction with LVEF of 30 35%, nonischemic in nature with NYHA class 1 symptoms. Clinically euvolemic and well compensated. Currently doing well on current diuretic regimen. Daily weight monitoring avoidance of salt loading was discussed. Additional diuretics as discussed. Continue neurohormonal modulation with Entresto, Jardiance as well as carvedilol therapy. Importance of medical therapy was discussed. She remains very active and recommend to continue pursue activity level as tolerated. Advised to call me with worsening symptoms. (2) ICD (implantable cardioverter-defibrillator) in place: Comment: Medtronic dual-chamber ICD Code(s): Z95.810 - Presence of automatic (implantable) cardiac defibrillator Plan: ICD in place, working well. Will follow remotely for heart failure as well as for device function. Noted episodes of nonsustained VT although the L detected by ICD with no treatment. Continue carvedilol therapy. Will follow up in the clinic in 6 months time, sooner p.r.n.. Thank you for allowing me to partake in her care Coding Level of Care Code Est Pt Level 4 (23749) Diagnoses Heart failure with reduced ejection fraction I50.20 ICD (implantable cardioverter-defibrillator) in place Z95.810 CPT Codes Cardiac Device Check - Cardiac Device 5: 36001-LI Cardiac Device Check, dual lead implantable defibrillator ([id number]) EKG - CPT: 38141-Xizqbenlppffkzzwe, Complete ([id number])
== END 2023-05-21 11:24 | disposition home or self-care (01) ==
PROVIDERS: PCP Family Medicine; Visit Provider Internal Medicine Cardiovascular Disease
DX: I50.20 Unspecified systolic (congestive) heart failure (principal); Z95.810 Presence of automatic (implantable) cardiac defibrillator
CPT/HCPCS: 93283; 99214

== ENCOUNTER → 2023-05-21 10:54 | Outpatient (BNVA) | payer MEDICARE, SELFPAY | PROVIDERS: PCP Family Medicine; Visit Provider Internal Medicine Cardiovascular Disease | DX: Z45.02 Encounter for adjustment and management of automatic implantable cardiac defibrillator (principal); I50.20 Unspecified systolic (congestive) heart failure | CPT/HCPCS: 93005; 99212 ==

== ENCOUNTER → 2023-06-18 23:59 | Outpatient (BNV) | payer MEDICARE, SELFPAY ==
--- NOTE | 2023-06-18 15:57 | A.OFFVIS_ITS ---
Intake Intake Visit Reasons: Remote HF Monitoring- Medtronic Allergies No Known Allergies Allergy (Verified 03/17/23 11:12) [facility] Medical History Heart failure with reduced ejection fraction Nonischemic cardiomyopathy ICD (implantable cardioverter-defibrillator) in place Edema Surgical History History of surgery on lower extremity (2020) History of implantable cardiac defibrillator (ICD) (~07/2015) History of left knee surgery Hx of cholecystectomy Family History Father CVD (cardiovascular disease) Mother CVD (cardiovascular disease) Pulmonary embolism Brother No problems noted. Brother No problems noted. Son No problems noted. Daughter No problems noted. Social History Housing: House Patient Tobacco Use Status: Current someday Tobacco user Tobacco use type: Cigarette e-Cigarette/Vaping Use: Never Used Second Hand Smoke Exposure: No service: No Current occupational status: disabled Current occupational exposures/hazards: No Cognitive needs: No Hearing needs: No Vision needs: No Office Procedures Cardiac Device Check Cardiac Device Check Details: Remote heart failure report generated 06/18/2023. Heart failure parameters are stable [id number] Cardiac Device Interrogation, cardio physiologic monitor Procedure code (CPT) selection complete Assessment & Plan Assessment & Plan (1) ICD (implantable cardioverter-defibrillator) in place: Comment: Medtronic dual-chamber ICD Code(s): Z95.810 - Presence of automatic (implantable) cardiac defibrillator Plan: See above Coding Level of Care Code Procedure Only Diagnoses ICD (implantable cardioverter-defibrillator) in place Z95.810 CPT Codes Cardiac Device Check - Cardiac Device 15: 18665-Zotuxs Cardiac Device Interrogation, cardio physiologic monitor ([id number])
== END ==
PROVIDERS: PCP Family Medicine; Visit Provider Internal Medicine Cardiovascular Disease
DX: I50.20 Unspecified systolic (congestive) heart failure (principal); Z95.810 Presence of automatic (implantable) cardiac defibrillator
CPT/HCPCS: 93297

== ENCOUNTER → 2023-07-22 23:59 | Outpatient (BNV) | payer MEDICARE, SELFPAY ==
--- NOTE | 2023-07-22 14:43 | A.OFFVIS_ITS ---
Intake Intake Visit Reasons: Remote HF Monitoring- Medtronic Allergies No Known Allergies Allergy (Verified 03/17/23 11:12) [facility] Medical History Heart failure with reduced ejection fraction Nonischemic cardiomyopathy ICD (implantable cardioverter-defibrillator) in place Edema Surgical History History of surgery on lower extremity (2020) History of implantable cardiac defibrillator (ICD) (~07/2015) History of left knee surgery Hx of cholecystectomy Family History Father CVD (cardiovascular disease) Mother CVD (cardiovascular disease) Pulmonary embolism Brother No problems noted. Brother No problems noted. Son No problems noted. Daughter No problems noted. Social History Housing: House Patient Tobacco Use Status: Current someday Tobacco user Tobacco use type: Cigarette e-Cigarette/Vaping Use: Never Used Second Hand Smoke Exposure: No service: No Current occupational status: disabled Current occupational exposures/hazards: No Cognitive needs: No Hearing needs: No Vision needs: No Office Procedures Cardiac Device Check Cardiac Device Check Details: Remote heart failure report generated 07/30/2023. Heart failure parameters are stable. [id number] Cardiac Device Interrogation, cardio physiologic monitor Procedure code (CPT) selection complete Assessment & Plan Assessment & Plan (1) ICD (implantable cardioverter-defibrillator) in place: Comment: Medtronic dual-chamber ICD Code(s): Z95.810 - Presence of automatic (implantable) cardiac defibrillator Plan: See above Coding Level of Care Code Procedure Only Diagnoses ICD (implantable cardioverter-defibrillator) in place Z95.810 CPT Codes Cardiac Device Check - Cardiac Device 15: [id number] Cardiac Device Interrogation, cardio physiologic monitor ([id number])
== END ==
PROVIDERS: PCP Family Medicine; Visit Provider Internal Medicine Cardiovascular Disease
DX: Z45.02 Encounter for adjustment and management of automatic implantable cardiac defibrillator (principal)
CPT/HCPCS: 93297

== ENCOUNTER → 2023-08-28 23:59 | Outpatient (BNV) | payer MEDICARE, SELFPAY ==
--- NOTE | 2023-09-01 14:27 | MHC.OFFVIS ---
Intake Visit Reasons: Remote HF Monitoring- [employer]tr[employer] Allergies No Known Allergies Allergy (Verified 09/01/23 11:00) [facility] Medical History Heart failure with reduced ejection fraction Nonischemic cardiomyopathy ICD (implantable cardioverter-defibrillator) in place Edema Surgical History History of surgery on lower extremity (2020) History of implantable cardiac defibrillator (ICD) (~07/2015) History of left knee surgery Hx of cholecystectomy Family History Father CVD (cardiovascular disease) Mother CVD (cardiovascular disease) Pulmonary embolism Brother No problems noted. Brother No problems noted. Son No problems noted. Daughter No problems noted. Social History Housing: House Patient Tobacco Use Status: Current someday Tobacco user Tobacco use type: Cigarette e-Cigarette/Vaping Use: Never Used Second Hand Smoke Exposure: No service: No Current occupational status: disabled Current occupational exposures/hazards: No Cognitive needs: No Hearing needs: No Vision needs: No Office Procedures Cardiac Device Check Cardiac Device Check Details: Remote heart failure report generated 08/28/2023. Heart failure parameters are stable [id number] Cardiac Device Interrogation, cardio physiologic monitor Procedure code (CPT) selection complete Assessment & Plan Assessment & Plan (1) ICD (implantable cardioverter-defibrillator) in place: Comment: Medtronic dual-chamber ICD Code(s): Z95.810 - Presence of automatic (implantable) cardiac defibrillator Category: Medical Plan: See above Coding Level of Care Code Procedure Only Diagnoses ICD (implantable cardioverter-defibrillator) in place Z95.810 CPT Codes Cardiac Device Check - Cardiac Device 15: [id number] Cardiac Device Interrogation, cardio physiologic monitor ([id number])
== END ==
PROVIDERS: PCP Family Medicine; Visit Provider Internal Medicine Cardiovascular Disease
DX: Z45.02 Encounter for adjustment and management of automatic implantable cardiac defibrillator (principal)
CPT/HCPCS: 93297

== ENCOUNTER 2023-09-01 10:38 | Outpatient (AMB) | payer MEDICARE, SELFPAY ==
[2023-09-01 10:58] VITALS: BP 128/74; PULSE 63; O2SAT 97; BMI 38.2
--- NOTE | 2023-09-01 10:58 | MHC.PC.OV ---
Vital Signs 09/01/23 10:58 Height 5 ft 1 in Weight 202 lb BMI 38.2 BP 128/74 Blood Pressure Location Lt brachial Position Sitting Pulse 63 Pulse Source Pulse Oximeter Pulse Oximetry (%) 97 Oxygen Delivery Method Room Air Intake Visit Reasons: follow up Intake Note: Patient is here with complaint of bilateral knee pain, would like referral for cortisone shots. Allergies No Known Allergies Allergy (Verified 09/01/23 11:00) Medication List - Last Reconciled 09/01/23 by Jacob Radford MD alprazolam 0.5 mg PO TID buprenorphine-naloxone 8-2 mg 0 mg sublingual carvedilol 12.5 mg PO BID empagliflozin (Jardiance) 10 mg PO DAILY furosemide 40 mg PO BID gabapentin 800 mg PO BEDTIME 90 days gabapentin 600 mg PO QID ibuprofen 600 mg PO TID PRN sacubitril-valsartan 24-26 mg (Entresto) 1 tab PO BID Tobacco use date assessed: 09/01/23 Dental Screening Dental Screen Date: 09/01/23 Did you have a dental visit in the last 12 months?: No Did you have a dental problem in the last 6 months where you did not have access to dental care?: No Was dental information given to patient?: Patient declined HPI follow up HPI Details 63 y/o female presents to f/u chronic conditions. Pt has complaints of bilateral knee pain. She notes last time she had cortisone injections was just before the holidays. HPI Comments History of Present Illness Details Documentation assistance for Jacob Radford MD, was provided by Carmelo Foley, Dough Sheeter on 09/01/2023 11:[address] Prabhakar JOINER, have read, observed, and verified documentation. [facility] Medical History Heart failure with reduced ejection fraction Nonischemic cardiomyopathy ICD (implantable cardioverter-defibrillator) in place Edema Surgical History History of surgery on lower extremity (2020) History of implantable cardiac defibrillator (ICD) (~07/2015) History of left knee surgery Hx of cholecystectomy Family History Father CVD (cardiovascular disease) Mother CVD (cardiovascular disease) Pulmonary embolism Brother No problems noted. Brother No problems noted. Son No problems noted. Daughter No problems noted. Social History Housing: House Patient Tobacco Use Status: Current someday Tobacco user Tobacco use type: Cigarette e-Cigarette/Vaping Use: Never Used Second Hand Smoke Exposure: No service: No Current occupational status: disabled Current occupational exposures/hazards: No Cognitive needs: No Hearing needs: No Vision needs: No Questionnaire PHQ-9 Over the last 2 weeks, how often have you been bothered by any of the following problems? 1. Little interest or pleasure in doing things: not at all 2. Feeling down, depressed, or hopeless: not at all 3. Trouble falling or staying asleep, or sleeping too much: not at all 4. Feeling tired or having little energy: not at all 5. Poor appetite or overeating: not at all 6. Feeling bad about yourself - or that you are a failure or have let yourself or your family down: not at all 7. Trouble concentrating on things, such as reading the newspaper or watching television: not at all 8. Moving or speaking so slowly that other people could have noticed. Or the opposite - being so fidgety or restless that you have been moving around a lot more than usual: not at all 9. Thoughts that you would be better off or of hurting yourself in some way: not at all Total score: 0 Depression Screening Interpretation: Negative Depression Screening Done: Yes 20685 - PHQ-9 Billing: Yes Source: Developed by Drs. Nitesh Mcarthur, Julieta Champion, Bill Lanza and colleagues, with an educational everardo from [employer]. Thrive Questionnaire Date Thrive assessed: 09/01/23 I am a: Patient What is your living situation today?: I have a steady place to live Within the past 12 months, did the food you bought not last and you didn't have the money to get more?: Never true Within the past 12 months, did you worry whether your food would run out before you got money to buy more?: Never true Do you have trouble paying for medicines?: No Do you have trouble getting transportation to medical appointments?: No Do you have trouble paying your heating and electricity bill?: No Do you have trouble taking care of your child, family member or friend?: No Do you have trouble with day-to-day activities such as bathing, preparing meals, shopping, managing finances, etc.?: No Are you currently unemployed and looking for a job?: No Are you interested in more education?: No THRIVE Score: 0 AUDIT C Alcohol Use Questionnaire (AUDIT-C) 1. How often do you have a drink containing alcohol?: Never 3. How often do you have six or more drinks on one occasion?: Never Total Score: 0 YOMAIRA-7 AMB Questionnaire YOMAIRA-7 Date YOMAIRA - 7 assessed: 09/01/23 Feeling nervous, anxious, or on edge: 0 = Not at all Not being able to stop or control worryin = Not at all Worrying too much about different things: 0 = Not at all Trouble relaxin = Not at all Being so restless that it is hard to sit still: 0 = Not at all Becoming easily annoyed or irritable: 0 = Not at all Feeling afraid as if something awful might happen: 0 = Not at all Total YOMAIRA-7 score (0-4 normal; 5-9 mild; 10-14 moderate; 15-21 severe): 0 Source: Developed by Drs. Nitesh Mcarthur, Julieta Champion, Bill Lanza and colleagues, with an educational everardo from [employer]. YOMAIRA-7 Assessment Billing YOMAIRA-7 Assessment Tool: YOMAIRA-7 Assessment 54295 Review of Systems Const Denies chills, Denies fatigue, Denies fever(s), Denies headache(s) and Denies weakness ENT Denies dizziness and Denies headache(s) Card Denies dyspnea Resp Denies cough, Denies dyspnea, Denies wheezing and Denies other (shortness of breath) Musc Denies numbness and Denies tingling Neuro Denies dizziness, Denies headache(s), Denies numbness, Denies tingling and Denies weakness Psych Denies anxiety and Denies depression Endo Denies fatigue Aller/Immun Denies wheezing Physical exam (Primary Care) Vital Signs: Last Vital Signs Pulse 63 09/01/23 10:58 BP 128/74 09/01/23 10:58 Pulse Ox 97 09/01/23 10:58 Oxygen Delivery Method Room Air 09/01/23 10:58 BMI result Body Mass Index 38.2 Tobacco/Smoking Status: Tobacco use Status Tobacco use date assessed 09/01/23 09/01/23 11:07 Patient Tobacco Use Status Current someday Tobacco 09/01/23 10:59 Tobacco use type Cigarette 09/01/23 10:59 e-Cigarette/Vaping Use Never Used 09/01/23 10:59 PHQ-9: PHQ-9 Score PHQ-9: Total score 0 09/01/23 11:07 Depression Screening Interpretation: Negative Thrive Assessment: Date of Thrive Assessment Date Thrive assessed 09/01/23 09/01/23 11:07 Const General: well developed; No acute distress Nutritional Appearance: well nourished Orientation/consciousness: patient oriented x3 HENMT Head: Yes normocephalic and Yes atraumatic Eyes General: appearance normal, both eyes and all related structures Pupils: Equal, round and reactive pupils present EOM: EOMs intact bilaterally Resp Effort & Inspection: normal respiratory effort Neuro General: patient oriented x3 and gait normal Cranial nerves: Yes Equal, round and reactive pupils present Psych Affect: normal affect Assessment and Plan Assessment & Plan (1) Bilateral knee pain: Code(s): M25.561 - Pain in right knee; M25.562 - Pain in left knee Plan: Ongoing?bilateral?knee?pain?with?bilateral?knee?osteoarthritis She?had?undergone?cortisone?shots?with??Wisam?in?the?past?and?would?like?a?referral?back?to?him. Referral?made We?also?discussed?that?strengthening?exercises?can?help?to?prevent?worsening Start?physical?therapy Orders: Orders PT Evaluation and Treatment Today M17.0 - Bilateral primary osteoarthritis of knee Lipid Panel Today M17.0 - Bilateral primary osteoarthritis of knee, Z00.00 - Encounter for general adult medical examination without abnormal findings TSH reflex Free T4 Today M17.0 - Bilateral primary osteoarthritis of knee, Z00.00 - Encounter for general adult medical examination without abnormal findings UA and rflx microscopic Today M17.0 - Bilateral primary osteoarthritis of knee, Z00.00 - Encounter for general adult medical examination without abnormal findings Comprehensive [place]. Panel Fast Today M17.0 - Bilateral primary osteoarthritis of knee, Z00.00 - Encounter for general adult medical examination without abnormal findings Microalbumin, Random (w Creat) Today I10 - Essential (primary) hypertension, M17.0 - Bilateral primary osteoarthritis of knee Referrals Orthopedics Referral M17.0 - Bilateral primary osteoarthritis of knee Coding Level of Care Code Est Pt Level 3 (60950) Diagnoses Bilateral knee pain M25.561; M25.562 Additional Codes YOMAIRA-7 Assessment Billing - YOMAIRA-7 Assessment Tool: YOMAIRA-7 Assessment 50345 ([id number])
== END 2023-09-01 14:07 | disposition home or self-care (01) ==
PROVIDERS: PCP Family Medicine; Visit Provider Family Medicine
DX: M25.561 Pain in right knee (principal); M25.562 Pain in left knee
CPT/HCPCS: 99213

== ENCOUNTER → 2023-09-30 23:59 | Outpatient (BNV) | payer MEDICARE, SELFPAY ==
--- NOTE | 2023-11-16 11:04 | MHC.OFFVIS ---
Intake Visit Reasons: Remote device check- Medtronic Allergies No Known Allergies Allergy (Verified 10/08/23 11:08) [facility] Medical History Heart failure with reduced ejection fraction Nonischemic cardiomyopathy ICD (implantable cardioverter-defibrillator) in place Edema Surgical History History of surgery on lower extremity (2020) History of implantable cardiac defibrillator (ICD) (~07/2015) History of left knee surgery Hx of cholecystectomy Family History Father CVD (cardiovascular disease) Mother CVD (cardiovascular disease) Pulmonary embolism Brother No problems noted. Brother No problems noted. Son No problems noted. Daughter No problems noted. Social History Housing: House Patient Tobacco Use Status: Current someday Tobacco user Tobacco use type: Cigarette e-Cigarette/Vaping Use: Never Used Second Hand Smoke Exposure: No service: No Current occupational status: disabled Current occupational exposures/hazards: No Cognitive needs: No Hearing needs: No Vision needs: No Office Procedures Cardiac Device Check Cardiac Device Check Details: Remote ICD report generated 11/13/2023. ICD function is adequate. Battery life is 10 months. Will continue monitor [id number] Cardiac Interrogation, implant defibrillator w/interim Procedure code (CPT) selection complete Assessment & Plan Assessment & Plan (1) ICD (implantable cardioverter-defibrillator) in place: Comment: Medtronic dual-chamber ICD Code(s): Z95.810 - Presence of automatic (implantable) cardiac defibrillator Category: Medical Plan: See above Coding Level of Care Code Procedure Only Diagnoses ICD (implantable cardioverter-defibrillator) in place Z95.810 CPT Codes Cardiac Device Check - Cardiac Device 13: [id number] Cardiac Interrogation, implant defibrillator w/interim ([id number])
== END ==
PROVIDERS: PCP Family Medicine; Visit Provider Internal Medicine Cardiovascular Disease
DX: I50.22 Chronic systolic (congestive) heart failure (principal); Z95.810 Presence of automatic (implantable) cardiac defibrillator
CPT/HCPCS: 93295

== ENCOUNTER → 2023-09-30 23:59 | Outpatient (BNV) | payer MEDICARE, SELFPAY ==
--- NOTE | 2023-10-06 14:33 | A.OFFVIS_ITS ---
Intake Visit Reasons: Remote HF monitoring- Medtronic Allergies No Known Allergies Allergy (Verified 09/01/23 11:00) [facility] Medical History Heart failure with reduced ejection fraction Nonischemic cardiomyopathy ICD (implantable cardioverter-defibrillator) in place Edema Surgical History History of surgery on lower extremity (2020) History of implantable cardiac defibrillator (ICD) (~07/2015) History of left knee surgery Hx of cholecystectomy Family History Father CVD (cardiovascular disease) Mother CVD (cardiovascular disease) Pulmonary embolism Brother No problems noted. Brother No problems noted. Son No problems noted. Daughter No problems noted. Social History Housing: House Patient Tobacco Use Status: Current someday Tobacco user Tobacco use type: Cigarette e-Cigarette/Vaping Use: Never Used Second Hand Smoke Exposure: No service: No Current occupational status: disabled Current occupational exposures/hazards: No Cognitive needs: No Hearing needs: No Vision needs: No Office Procedures Cardiac Device Check Cardiac Device Check Details: Remote heart failure report generated 09/30/2023. Heart failure parameters are stable [id number] Cardiac Device Interrogation, cardio physiologic monitor Procedure code (CPT) selection complete Assessment & Plan Assessment & Plan (1) ICD (implantable cardioverter-defibrillator) in place: Comment: Medtronic dual-chamber ICD Code(s): Z95.810 - Presence of automatic (implantable) cardiac defibrillator Category: Medical Plan: See above Coding Level of Care Code Procedure Only Diagnoses ICD (implantable cardioverter-defibrillator) in place Z95.810 CPT Codes Cardiac Device Check - Cardiac Device 15: [id number] Cardiac Device Interrogation, cardio physiologic monitor ([id number])
== END ==
PROVIDERS: PCP Family Medicine; Visit Provider Internal Medicine Cardiovascular Disease
DX: Z45.02 Encounter for adjustment and management of automatic implantable cardiac defibrillator (principal)
CPT/HCPCS: 93297

== ENCOUNTER 2023-10-08 11:04 | Outpatient (AMB) | payer MEDICARE, SELFPAY ==
--- NOTE | 2023-10-08 11:05 | MHC.OFFVIS ---
Intake Visit Reasons: Bilateral primary osteoarthritis of knee Intake Note: Xiomara 62 yr old female presents today for her bilateral O.A knee pain, last injection 02/20/23. Patient reports last injection provided her good relief for about 3-4 months. She is requesting to repeat injections in both of her knees. Allergies No Known Allergies Allergy (Verified 10/08/23 11:08) HPI HPI Bilateral primary osteoarthritis of knee: Details: Xiomara 62 yr old female presents today for her bilateral O.A knee pain, last injection 02/20/23. Patient reports last injection provided her good relief for about 3-4 months. She is requesting to repeat injections in both of her knees. [facility] Medical History Heart failure with reduced ejection fraction Nonischemic cardiomyopathy ICD (implantable cardioverter-defibrillator) in place Edema Surgical History History of surgery on lower extremity (2020) History of implantable cardiac defibrillator (ICD) (~07/2015) History of left knee surgery Hx of cholecystectomy Family History Father CVD (cardiovascular disease) Mother CVD (cardiovascular disease) Pulmonary embolism Brother No problems noted. Brother No problems noted. Son No problems noted. Daughter No problems noted. Social History Housing: House Patient Tobacco Use Status: Current someday Tobacco user Tobacco use type: Cigarette e-Cigarette/Vaping Use: Never Used Second Hand Smoke Exposure: No service: No Current occupational status: disabled Current occupational exposures/hazards: No Cognitive needs: No Hearing needs: No Vision needs: No Physical Exam Const General: no acute distress, alert and awake Orientation/consciousness: patient oriented x3 HEENT Head: Yes normocephalic and Yes atraumatic Eyes EOM: EOMs intact bilaterally Resp Effort & Inspection: normal respiratory effort and able to speak in complete sentences Cardio Jugular venous distension: no JVD Skin General skin exam: turgor normal Rashes: no rashes Neuro General: patient oriented x3 Extrem Other: Bilateral Knees: TTP medial compartment Mild Lower leg edema 5-130 degrees varus aligned bilateral knees Left leg has healed medial ankle surgical incision Psych Appearance: grossly normal Affect: normal affect Attitude: cooperative Office Procedures Joint Injection/Drain Joint Injection/Drain Details: Injected 1 mL of Decadron and 3 mL 1% lidocaine and 3 mL of 0.25% Marcaine. Site was prepped using aseptic technique. Patient tolerated the procedure well. Primary Site: right knee Secondary Site: left knee Approach Used: anterolateral Coding 25626 - Large joint 73592 - Glenohumeral/Tronchanteric Bursa/Intraarticular Procedure code (CPT) selection complete Assessment & Plan Assessment & Plan (1) Bilateral primary osteoarthritis of knee: Code(s): M17.0 - Bilateral primary osteoarthritis of knee Category: Medical Plan: This is a 62 year old woman with severe bilateral knee OA. She has pain with daily activity, worse with ambulation, and an antalgic gait. She is limited in her daily activity levels which is challenging for her due to her Hx of CHF. She has a Hx of good relief from steroid injections. I discussed her diagnosis and treatment options. Due to her Hx of CHF with an implanted pacemaker-defibrillator, DVT, and PE, she is not a good surgical candidate at this time. I recommend steroid injections and quad strengthening exercises. I injected her bilateral knees today. Coding Level of Care Code Est Pt Level 3 (68722) Diagnoses Bilateral primary osteoarthritis of knee M17.0 CPT Codes Coding - 89564 Large joint: 80004 - Large joint ([id number]) Coding - Joint 7: 79163 - Glenohumeral/Tronchanteric Bursa/Intraarticular ([id number])
== END 2023-10-08 11:52 | disposition home or self-care (01) ==
PROVIDERS: PCP Family Medicine; Visit Provider Orthopaedic Surgery
DX: M17.0 Bilateral primary osteoarthritis of knee (principal)
CPT/HCPCS: 20610; 99213

== ENCOUNTER → 2023-10-08 11:04 | Outpatient (BNVA) | payer MEDICARE, SELFPAY | PROVIDERS: PCP Family Medicine; Visit Provider Orthopaedic Surgery | DX: M17.0 Bilateral primary osteoarthritis of knee (principal) | CPT/HCPCS: 20610; 99212; J0665; J1100 ==

== ENCOUNTER → 2023-11-03 23:59 | Outpatient (BNV) | payer MEDICARE, SELFPAY ==
--- NOTE | 2023-11-09 14:57 | MHC.OFFVIS ---
Intake Visit Reasons: Remote device check- [employer]tronic Allergies No Known Allergies Allergy (Verified 10/08/23 11:08) COUNT INCLUDES THE [facility] Medical History Heart failure with reduced ejection fraction Nonischemic cardiomyopathy ICD (implantable cardioverter-defibrillator) in place Edema Surgical History History of surgery on lower extremity (2020) History of implantable cardiac defibrillator (ICD) (~07/2015) History of left knee surgery Hx of cholecystectomy Family History Father CVD (cardiovascular disease) Mother CVD (cardiovascular disease) Pulmonary embolism Brother No problems noted. Brother No problems noted. Son No problems noted. Daughter No problems noted. Social History Housing: House Patient Tobacco Use Status: Current someday Tobacco user Tobacco use type: Cigarette e-Cigarette/Vaping Use: Never Used Second Hand Smoke Exposure: No service: No Current occupational status: disabled Current occupational exposures/hazards: No Cognitive needs: No Hearing needs: No Vision needs: No Office Procedures Cardiac Device Check Cardiac Device Check Details: Remote heart failure report generated 11/03/2023. Heart failure parameters are stable [id number] Cardiac Device Interrogation, cardio physiologic monitor Procedure code (CPT) selection complete Assessment & Plan Assessment & Plan (1) ICD (implantable cardioverter-defibrillator) in place: Comment: Medtronic dual-chamber ICD Code(s): Z95.810 - Presence of automatic (implantable) cardiac defibrillator Category: Medical Plan: See above Coding Level of Care Code Procedure Only Diagnoses ICD (implantable cardioverter-defibrillator) in place Z95.810 CPT Codes Cardiac Device Check - Cardiac Device 15: [id number] Cardiac Device Interrogation, cardio physiologic monitor ([id number])
== END ==
PROVIDERS: PCP Family Medicine; Visit Provider Internal Medicine Cardiovascular Disease
DX: Z45.02 Encounter for adjustment and management of automatic implantable cardiac defibrillator (principal)
CPT/HCPCS: 93297

== ENCOUNTER 2023-11-10 10:58 | Outpatient (AMB) | payer MEDICARE, SELFPAY ==
[2023-11-10 11:00] VITALS: BP 120/80; PULSE 76; BMI 33.7
--- NOTE | 2023-11-10 11:00 | MHC.OFFVIS ---
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 She has been doing very well overall from cardiac perspective. Remains very active. Still has NYHA class 2 symptoms. However denies any worsening shortness of breath. No orthopnea, PND. Has notice some more leg edema in the warm weather. Denies any clear weight gain. She takes additional diuretics when she feels like she has fluid overload otherwise she has been doing well and stable. Denies any lightheadedness, syncope. No prolonged palpitation irregular heartbeat. No ICD discharge. [facility] Medical History Heart failure with reduced ejection fraction Nonischemic cardiomyopathy ICD (implantable cardioverter-defibrillator) in place Edema Surgical History History of surgery on lower extremity (2020) History of implantable cardiac defibrillator (ICD) (~07/2015) History of left knee surgery Hx of cholecystectomy Family History Father CVD (cardiovascular disease) Mother CVD (cardiovascular disease) Pulmonary embolism Brother No problems noted. Brother No problems noted. Son No problems noted. Daughter No problems noted. Social History Housing: House Patient Tobacco Use Status: Current someday Tobacco user Tobacco use type: Cigarette e-Cigarette/Vaping Use: Never Used Second Hand Smoke Exposure: No service: No Current occupational status: disabled Current occupational exposures/hazards: No Cognitive needs: No Hearing needs: No Vision needs: No Review of Systems Const Denies chills, Denies fatigue, Denies fever(s), Denies frequent falls, Denies weakness, Denies weight gain and Denies weight loss ENT Denies dizziness Card Denies chest pain, Denies leg edema, Denies lightheadedness, Denies palpitations, Denies dyspnea, Denies dyspnea on exertion, Denies orthopnea and Denies other (loss of consciousness) Resp Denies cough, Denies dyspnea and Denies dyspnea on exertion GI Denies hematochezia and Denies change in stool character Musc Denies abnormal gait, Denies muscle weakness, Denies numbness, Denies radiating pain into limb and Denies tingling Neuro Denies abnormal gait, Denies dizziness, Denies frequent falls, Denies numbness, Denies tingling and Denies weakness Endo Denies fatigue and Denies palpitations Physical Exam Vital Signs: Last Vital Signs Pulse 76 11/10/23 11:00 BP 120/80 11/10/23 11:00 BMI result Body Mass Index 33.7 Const General: cooperative, comfortable, no acute distress, alert and awake Nutritional Appearance: obese Orientation/consciousness: patient oriented x3 Limitations: no limitations HEENT Head: Yes normocephalic Neck Neck: Yes trachea midline, Yes supple and Yes no JVD Chest Chest palpation & inspection: normal inspection of the chest Resp Effort & Inspection: normal respiratory effort Auscultation: clear to auscultation bilaterally Cardio Jugular venous distension: no JVD Rate: regular rate Rhythm: regular rhythm and abnormal rhythm with ectopic beats Heart sounds: S1 normal heart sound present and S2 normal heart sound present GI Auscultation: normal bowel sounds Skin General skin exam: no rashes or lesions noted Neuro General: patient oriented x3 and no focal motor deficits Extrem General: Yes other (Left lower extremity swollen and red with wounds near both her malleoli, no) Psych Appearance: grossly normal Office Procedures Cardiac Device Check Cardiac Device Check Details: Dual-chamber Medtronic ICD in place. Programmed in MVP mode with rate response at 60 beats per minute. Atrial pacing 40% of time. One brief episode of atrial fibrillation noted lasting 19 seconds. Multiple episodes of nonsustained VT noted. Atrial pacing thresholds excellent and reprogrammed to enhance battery life. Ventricular pacing thresholds adequate and reprogrammed to provide adequate safety. Atrial ventricular sensing was adequate. Pacing and shock lead impedance is stable. Battery life is at about 15 months [id number] Cardiac Device Check, dual lead implantable defibrillator Procedure code (CPT) selection complete Assessment & Plan Assessment & Plan (1) Heart failure with reduced ejection fraction: Code(s): I50.20 - Unspecified systolic (congestive) heart failure Category: Medical Plan: Heart failure with reduced ejection fraction with NYHA class 2 symptoms, clinically euvolemic and well compensated. LV ejection fraction 30-35% by last echocardiogram. Follow-up echocardiogram in 6 months time. Clinically appears to be euvolemic and well compensated on current medications. Currently on carvedilol, Jardiance as well as Entresto for neurohormonal modulation. Tolerating well without any side effects. Blood pressure is stable. Can not further maximize due to prior history of hypertension syncope. Continue current diuretic regimen. Daily weight monitoring avoidance of salt loading was discussed. Encouraged to continue to participate in physical activity as tolerated. Can consider phase 2 cardiac rehabilitation if symptoms are bothersome but currently she has no restriction to her activity level. Additional diuretics as need be. (2) ICD (implantable cardioverter-defibrillator) in place: Comment: Medtronic dual-chamber ICD Code(s): Z95.810 - Presence of automatic (implantable) cardiac defibrillator Category: Medical Plan: ICD in place for primary prevention. Will monitor remotely for heart failure as well as device functioning. Will follow up in the clinic in 6 months time. (3) Cardiac arrhythmia: Code(s): I49.9 - Cardiac arrhythmia, unspecified Plan: Patient having multiple episode of nonsustained VT as well as 1 brief episode atrial fibrillation at 19 seconds. Not a candidate for anticoagulation right now further short duration of atrial fibrillation. Continue monitor by remote telemetry. Continue carvedilol therapy. Will follow up in the clinic in 6 months time, sooner p.r.n.. Thank you for allowing me to partake in her care Orders: Orders CA echo transthoracic complete 6 Months I50.20 - Unspecified systolic (congestive) heart failure Coding Level of Care Code Est Pt Level 4 (43144) Diagnoses Heart failure with reduced ejection fraction I50.20 ICD (implantable cardioverter-defibrillator) in place Z95.810 Cardiac arrhythmia I49.9 CPT Codes Cardiac Device Check - Cardiac Device 5: [id number] Cardiac Device Check, dual lead implantable defibrillator ([id number])
== END 2023-11-10 11:19 | disposition home or self-care (01) ==
PROVIDERS: PCP Family Medicine; Visit Provider Internal Medicine Cardiovascular Disease
DX: I50.20 Unspecified systolic (congestive) heart failure (principal); Z95.810 Presence of automatic (implantable) cardiac defibrillator; I49.9 Cardiac arrhythmia, unspecified
CPT/HCPCS: 93283; 99214

== ENCOUNTER → 2023-11-10 10:58 | Outpatient (BNVA) | payer MEDICARE, SELFPAY | PROVIDERS: PCP Family Medicine; Visit Provider Internal Medicine Cardiovascular Disease | DX: I50.20 Unspecified systolic (congestive) heart failure (principal); I49.9 Cardiac arrhythmia, unspecified; Z45.02 Encounter for adjustment and management of automatic implantable cardiac defibrillator; Z79.899 Other long term (current) drug therapy | CPT/HCPCS: 99212 ==

== ENCOUNTER → 2023-12-07 23:59 | Outpatient (BNV) | payer MEDICARE, SELFPAY ==
--- NOTE | 2023-12-09 13:52 | MHC.OFFVIS ---
Intake Visit Reasons: Remote ICD check- Medtronic Allergies No Known Allergies Allergy (Verified 10/08/23 11:08) [facility] Medical History Heart failure with reduced ejection fraction Nonischemic cardiomyopathy ICD (implantable cardioverter-defibrillator) in place Edema Surgical History History of surgery on lower extremity (2020) History of implantable cardiac defibrillator (ICD) (~07/2015) History of left knee surgery Hx of cholecystectomy Family History Father CVD (cardiovascular disease) Mother CVD (cardiovascular disease) Pulmonary embolism Brother No problems noted. Brother No problems noted. Son No problems noted. Daughter No problems noted. Social History Housing: House Patient Tobacco Use Status: Current someday Tobacco user Tobacco use type: Cigarette e-Cigarette/Vaping Use: Never Used Second Hand Smoke Exposure: No service: No Current occupational status: disabled Current occupational exposures/hazards: No Cognitive needs: No Hearing needs: No Vision needs: No Office Procedures Cardiac Device Check Cardiac Device Check Details: Remote ICD report generated 12/07/2023. ICD function is adequate [id number] Cardiac Interrogation, implant defibrillator w/interim Procedure code (CPT) selection complete Assessment & Plan Assessment & Plan (1) ICD (implantable cardioverter-defibrillator) in place: Comment: Medtronic dual-chamber ICD Code(s): Z95.810 - Presence of automatic (implantable) cardiac defibrillator Category: Medical Plan: See above Coding Level of Care Code Procedure Only Diagnoses ICD (implantable cardioverter-defibrillator) in place Z95.810 CPT Codes Cardiac Device Check - Cardiac Device 13: [id number] Cardiac Interrogation, implant defibrillator w/interim ([id number])
== END ==
PROVIDERS: PCP Family Medicine; Visit Provider Internal Medicine Cardiovascular Disease
DX: I42.9 Cardiomyopathy, unspecified (principal); Z95.810 Presence of automatic (implantable) cardiac defibrillator
CPT/HCPCS: 93295

== ENCOUNTER → 2023-12-07 23:59 | Outpatient (BNV) | payer MEDICARE, SELFPAY ==
--- NOTE | 2023-12-09 13:53 | MHC.OFFVIS ---
Intake Visit Reasons: Remote HF monitoring- Medtronic Allergies No Known Allergies Allergy (Verified 10/08/23 11:08) [facility] Medical History Heart failure with reduced ejection fraction Nonischemic cardiomyopathy ICD (implantable cardioverter-defibrillator) in place Edema Surgical History History of surgery on lower extremity (2020) History of implantable cardiac defibrillator (ICD) (~07/2015) History of left knee surgery Hx of cholecystectomy Family History Father CVD (cardiovascular disease) Mother CVD (cardiovascular disease) Pulmonary embolism Brother No problems noted. Brother No problems noted. Son No problems noted. Daughter No problems noted. Social History Housing: House Patient Tobacco Use Status: Current someday Tobacco user Tobacco use type: Cigarette e-Cigarette/Vaping Use: Never Used Second Hand Smoke Exposure: No service: No Current occupational status: disabled Current occupational exposures/hazards: No Cognitive needs: No Hearing needs: No Vision needs: No Office Procedures Cardiac Device Check Cardiac Device Check Details: Remote heart failure report generated 12/07/2023. Heart failure parameters are stable [id number] Cardiac Device Interrogation, cardio physiologic monitor Procedure code (CPT) selection complete Assessment & Plan Assessment & Plan (1) ICD (implantable cardioverter-defibrillator) in place: Comment: Medtronic dual-chamber ICD Code(s): Z95.810 - Presence of automatic (implantable) cardiac defibrillator Category: Medical Plan: See above Coding Level of Care Code Procedure Only Diagnoses ICD (implantable cardioverter-defibrillator) in place Z95.810 CPT Codes Cardiac Device Check - Cardiac Device 15: [id number] Cardiac Device Interrogation, cardio physiologic monitor ([id number])
== END ==
PROVIDERS: PCP Family Medicine; Visit Provider Internal Medicine Cardiovascular Disease
DX: I50.20 Unspecified systolic (congestive) heart failure (principal); Z95.810 Presence of automatic (implantable) cardiac defibrillator
CPT/HCPCS: 93297

== ENCOUNTER → 2024-01-09 23:59 | Outpatient (BNV) | payer MEDICARE, SELFPAY ==
--- NOTE | 2024-01-13 15:26 | MHC.OFFVIS ---
Intake Visit Reasons: Remote ICD check- Medtronic Allergies No Known Allergies Allergy (Verified 10/08/23 11:08) [facility] Medical History Heart failure with reduced ejection fraction Nonischemic cardiomyopathy ICD (implantable cardioverter-defibrillator) in place Edema Surgical History History of surgery on lower extremity (2020) History of implantable cardiac defibrillator (ICD) (~07/2015) History of left knee surgery Hx of cholecystectomy Family History Father CVD (cardiovascular disease) Mother CVD (cardiovascular disease) Pulmonary embolism Brother No problems noted. Brother No problems noted. Son No problems noted. Daughter No problems noted. Social History Housing: House Patient Tobacco Use Status: Current someday Tobacco user Tobacco use type: Cigarette e-Cigarette/Vaping Use: Never Used Second Hand Smoke Exposure: No service: No Current occupational status: disabled Current occupational exposures/hazards: No Cognitive needs: No Hearing needs: No Vision needs: No Office Procedures Cardiac Device Check Cardiac Device Check Details: Remote ICD report generated 01/09/2024. ICD function is adequate [id number] Cardiac Interrogation, implant defibrillator w/interim Procedure code (CPT) selection complete Assessment & Plan Assessment & Plan (1) ICD (implantable cardioverter-defibrillator) in place: Comment: Medtronic dual-chamber ICD Code(s): Z95.810 - Presence of automatic (implantable) cardiac defibrillator Category: Medical Plan: See above Coding Level of Care Code Procedure Only Diagnoses ICD (implantable cardioverter-defibrillator) in place Z95.810 CPT Codes Cardiac Device Check - Cardiac Device 13: [id number] Cardiac Interrogation, implant defibrillator w/interim ([id number])
== END ==
PROVIDERS: PCP Family Medicine; Visit Provider Internal Medicine Cardiovascular Disease
DX: Z45.02 Encounter for adjustment and management of automatic implantable cardiac defibrillator (principal)
CPT/HCPCS: 93295

== ENCOUNTER → 2024-01-09 23:59 | Outpatient (BNV) | payer MEDICARE, SELFPAY ==
--- NOTE | 2024-01-13 15:27 | A.OFFVIS_ITS ---
Intake Visit Reasons: Remote HF monitoring- Medtronic Allergies No Known Allergies Allergy (Verified 10/08/23 11:08) [facility] Medical History Heart failure with reduced ejection fraction Nonischemic cardiomyopathy ICD (implantable cardioverter-defibrillator) in place Edema Surgical History History of surgery on lower extremity (2020) History of implantable cardiac defibrillator (ICD) (~07/2015) History of left knee surgery Hx of cholecystectomy Family History Father CVD (cardiovascular disease) Mother CVD (cardiovascular disease) Pulmonary embolism Brother No problems noted. Brother No problems noted. Son No problems noted. Daughter No problems noted. Social History Housing: House Patient Tobacco Use Status: Current someday Tobacco user Tobacco use type: Cigarette e-Cigarette/Vaping Use: Never Used Second Hand Smoke Exposure: No service: No Current occupational status: disabled Current occupational exposures/hazards: No Cognitive needs: No Hearing needs: No Vision needs: No Office Procedures Cardiac Device Check Cardiac Device Check Details: Remote heart failure report generated 01/09/2024. Heart failure parameters are stable [id number] Cardiac Device Interrogation, cardio physiologic monitor Procedure code (CPT) selection complete Assessment & Plan Assessment & Plan (1) ICD (implantable cardioverter-defibrillator) in place: Comment: Medtronic dual-chamber ICD Code(s): Z95.810 - Presence of automatic (implantable) cardiac defibrillator Category: Medical Plan: See above Coding Level of Care Code Procedure Only Diagnoses ICD (implantable cardioverter-defibrillator) in place Z95.810 CPT Codes Cardiac Device Check - Cardiac Device 15: [id number] Cardiac Device Interrogation, cardio physiologic monitor ([id number])
== END ==
PROVIDERS: PCP Family Medicine; Visit Provider Internal Medicine Cardiovascular Disease
DX: I50.20 Unspecified systolic (congestive) heart failure (principal); Z95.810 Presence of automatic (implantable) cardiac defibrillator
CPT/HCPCS: 93297

== ENCOUNTER 2024-02-03 15:26 | Outpatient (AMB) | payer MEDICARE, SELFPAY ==
--- NOTE | 2024-02-03 15:46 | MHC.PC.OV ---
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 Pt has a hard time getting around due to bilateral knee pain. She feels especially stiff in the morning. She has difficulty going to the second floor at a home she owns. She did move her whole room downstairs. Unsteady gait and pt has been using a walker. [facility] Medical History Heart failure with reduced ejection fraction Nonischemic cardiomyopathy ICD (implantable cardioverter-defibrillator) in place Edema Surgical History History of surgery on lower extremity (2020) History of implantable cardiac defibrillator (ICD) (~07/2015) History of left knee surgery Hx of cholecystectomy Family History Father CVD (cardiovascular disease) Mother CVD (cardiovascular disease) Pulmonary embolism Brother No problems noted. Brother No problems noted. Son No problems noted. Daughter No problems noted. Social History Housing: House Patient Tobacco Use Status: Current someday Tobacco user Tobacco use type: Cigarette e-Cigarette/Vaping Use: Never Used Second Hand Smoke Exposure: No service: No Current occupational status: disabled Current occupational exposures/hazards: No Cognitive needs: No Hearing needs: No Vision needs: No Questionnaire Thrive Questionnaire Date Thrive assessed: 09/01/23 AUDIT C Alcohol Use Questionnaire (AUDIT-C) 2. How many drinks containing alcohol do you have on a typical day when you are drinking?: 1 or 2 3. How often do you have six or more drinks on one occasion?: Never Total Score: 0 YOMAIRA-7 AMB Questionnaire YOMAIRA-7 Date YOMAIRA - 7 assessed: 09/01/23 Source: Developed by Drs. Nitesh Mcarthur, Julieta Champion, Bill Lanza and colleagues, with an educational everardo from [employer]. Review of Systems Const Denies chills, Denies fatigue, Denies fever(s), Denies headache(s) and Denies weakness ENT Denies dizziness and Denies headache(s) Card Denies dyspnea Resp Denies cough, Denies dyspnea, Denies wheezing and Denies other (shortness of breath) Musc Denies numbness and Denies tingling Neuro Denies dizziness, Denies headache(s), Denies numbness, Denies tingling and Denies weakness Psych Denies anxiety and Denies depression Endo Denies fatigue Aller/Immun Denies wheezing Physical exam (Primary Care) Vital Signs: Last Vital Signs Pulse 81 02/03/24 15:48 Resp 12 02/03/24 15:48 BP 106/70 02/03/24 15:48 Pulse Ox 100 02/03/24 15:48 Oxygen Delivery Method Room Air 02/03/24 15:48 BMI result Body Mass Index 33.2 Tobacco/Smoking Status: Tobacco use Status Tobacco use date assessed 09/01/23 02/03/24 15:50 Patient Tobacco Use Status Current someday Tobacco 02/03/24 15:50 Tobacco use type Cigarette 02/03/24 15:50 e-Cigarette/Vaping Use Never Used 02/03/24 15:50 Thrive Assessment: Date of Thrive Assessment Date Thrive assessed 09/01/23 02/03/24 15:50 Const General: well developed; No acute distress Nutritional Appearance: well nourished Orientation/consciousness: patient oriented x3 HENMT Head: Yes normocephalic and Yes atraumatic Eyes General: appearance normal, both eyes and all related structures Pupils: Equal, round and reactive pupils present EOM: EOMs intact bilaterally Resp Effort & Inspection: normal respiratory effort Auscultation: clear to auscultation bilaterally Cardio Rate: regular rate Rhythm: regular rhythm Heart sounds: S1 normal heart sound present, S2 normal heart sound present, no gallops, no murmurs and no rubs Neuro General: patient oriented x3 and gait normal Cranial nerves: Yes Equal, round and reactive pupils present Psych Affect: normal affect Coding Level of Care Code Est Pt Level 3 (92327) Diagnoses Bilateral knee pain M25.561; M25.562 Unsteady gait R26.81 Arthritis of both knees M17.0 Assessment & Plan Assessment & Plan (1) Bilateral knee pain: Code(s): M25.561 - Pain in right knee; M25.562 - Pain in left knee Category: Medical Plan: Pain?and?stiffness?bilateral?knees?with?unsteady?gait?secondary?to?arthritis Patient?will?benefit?from?a?walker Patient?will?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 Will?ask?nurse?navigator?to?facilitate?setting?up?IDENTITY MANAGEMENT DEVELOPER (2) Unsteady gait: Code(s): R26.81 - Unsteadiness on feet Category: Medical Plan: As?above (3) Arthritis of both knees: Code(s): M17.0 - Bilateral primary osteoarthritis of knee Category: Medical Plan: As above Orders: Referrals Nurse Navigator Referral I42.8 - Other cardiomyopathies, M17.0 - Bilateral primary osteoarthritis of knee, M25.561 - Pain in right knee, M25.562 - Pain in left knee, R26.81 - Unsteadiness on feet Medications: New walker Light Weight Walker. Daily As directed, 999 days 1 ea 0RF M17.0 - Bilateral primary osteoarthritis of knee, M25.561 - Pain in right knee, M25.562 - Pain in left knee, R26.81 - Unsteadiness on feet walker Light Weight Walker. Daily As directed, 999 days 1 ea 0RF M17.0 - Bilateral primary osteoarthritis of knee, M25.561 - Pain in right knee, M25.562 - Pain in left knee, R26.81 - Unsteadiness on feet
[2024-02-03 15:48] VITALS: BP 106/70; PULSE 81; RESP 12; O2SAT 100; BMI 33.2
== END 2024-02-03 16:10 | disposition home or self-care (01) ==
PROVIDERS: PCP Family Medicine; Visit Provider Family Medicine
DX: M25.561 Pain in right knee (principal); M25.562 Pain in left knee; R26.81 Unsteadiness on feet; M17.0 Bilateral primary osteoarthritis of knee

== ENCOUNTER → 2024-02-03 15:26 | Outpatient (BNVA) | payer MEDICARE, SELFPAY | PROVIDERS: PCP Family Medicine; Visit Provider Family Medicine | DX: M17.0 Bilateral primary osteoarthritis of knee (principal); R26.81 Unsteadiness on feet | CPT/HCPCS: 99212 ==

== ENCOUNTER → 2024-02-12 23:59 | Outpatient (BNV) | payer MEDICARE, SELFPAY ==
--- NOTE | 2024-02-16 11:09 | MHC.OFFVIS ---
Intake Visit Reasons: Remote HF monitoring- Medtronic Allergies No Known Allergies Allergy (Verified 02/03/24 15:47) [facility] Medical History Heart failure with reduced ejection fraction Nonischemic cardiomyopathy ICD (implantable cardioverter-defibrillator) in place Edema Surgical History History of surgery on lower extremity (2020) History of implantable cardiac defibrillator (ICD) (~07/2015) History of left knee surgery Hx of cholecystectomy Family History Father CVD (cardiovascular disease) Mother CVD (cardiovascular disease) Pulmonary embolism Brother No problems noted. Brother No problems noted. Son No problems noted. Daughter No problems noted. Social History Housing: House Patient Tobacco Use Status: Current someday Tobacco user Tobacco use type: Cigarette e-Cigarette/Vaping Use: Never Used Second Hand Smoke Exposure: No service: No Current occupational status: disabled Current occupational exposures/hazards: No Cognitive needs: No Hearing needs: No Vision needs: No Office Procedures Cardiac Device Check Cardiac Device Check Details: Remote heart failure report generated 02/12/2024. Heart failure parameters are stable [id number] Cardiac Device Interrogation, cardio physiologic monitor Procedure code (CPT) selection complete Assessment & Plan Assessment & Plan (1) ICD (implantable cardioverter-defibrillator) in place: Comment: Medtronic dual-chamber ICD Code(s): Z95.810 - Presence of automatic (implantable) cardiac defibrillator Category: Medical Plan: See above Coding Level of Care Code Procedure Only Diagnoses ICD (implantable cardioverter-defibrillator) in place Z95.810 CPT Codes Cardiac Device Check - Cardiac Device 15: [id number] Cardiac Device Interrogation, cardio physiologic monitor ([id number])
== END ==
PROVIDERS: PCP Family Medicine; Visit Provider Internal Medicine Cardiovascular Disease
DX: Z45.02 Encounter for adjustment and management of automatic implantable cardiac defibrillator (principal)
CPT/HCPCS: 93297

== ENCOUNTER 2024-03-15 10:44 | Outpatient (REF) | payer MEDICARE, SELFPAY ==
[2024-03-15 14:12] LABS: Appearance Urine Clear; Color Urine Yellow; Glucose Urine UA 500 mg/dL (Negative); Leukocyte Esterase Urine Negative (Negative); Nitrite Urine Negative (Negative); PH 6.5 (5.0-9.0); Urine Blood Negative (Negative); Urine Ketones Negative (Negative); Urine Protein Negative (Neg-Trace)
[2024-03-15 14:16] LABS: MANUAL DIFF FLAG NO
[2024-03-15 14:23] LABS: Basophils Absolute Auto 0.1 X10*3/uL (0.0-0.2); Basophils Percent Auto 0.8 % (0-2); Eosinophils Absolute Auto 0.2 X10*3/uL (0.0-0.4); Eosinophils Percent Auto 2.7 % (0-4); Hematocrit 43.2 % (37.0-47.0); Hemoglobin 13.9 g/dl (12.0-16.0); Imm Gran Abs Auto 0.02 X10*3/uL (0.00-0.03); Imm Gran Pct Auto 0.3 % (0.0-0.4); Lymphocytes Absolute Auto 1.7 X10*3/uL (1.2-4.9); Lymphocytes Percent Auto 22.7 % (20-40); Mean Corpuscular HGB Conc 32.2 g/dl (31.0-35.0); Mean Platelet Volume 11.7 fL (9.4-12.3); Monocytes Absolute Auto 0.8 X10*3/uL (0.1-1.2); Monocytes Percent Auto 10.7 % (2-11); Neutrophils Absolute Auto 4.6 x10*3/uL (2.0-8.3); Neutrophils Percent Auto 62.8 % (45-73); Platelet Count 274 X10*3/uL (160-400); Red Cell Distribution Width 14.2 % (11.0-16.0); White Blood Count 7.3 X10*3/uL (4.8-10.8)
[2024-03-15 15:12] LABS: Creatinine Urine 11.65 mg/dL; Microalbumin Urine < 5.0 mg/L
[2024-03-15 15:12] LABS: Alanine Aminotransferase 26 U/L (0-31); Anion Gap 14 (12-20); Aspartate Amino Transferase 30 U/L (5-31); Bilirubin Total 0.4 mg/dL (0.0-1.0); Blood Urea Nitrogen 18 mg/dL (9-16); Calcium 9.6 mg/dL (8.4-10.2); Carbon Dioxide 25 mmol/L (22-29); Chloride 104 mmol/L (96-108); Cholesterol 160 mg/dL (<200); Estimated Glomerular Filt Rate 57; Glucose Fasting 120 mg/dL (60-99); HDL Cholesterol 52 mg/dL (>40); LDL Cholesterol Calculated 93 mg/dL (<100); Potassium 3.7 mmol/L (3.3-5.1); Sodium 139 mmol/L (135-145); TSH reflex Free T4 0.94 uIU/mL (0.32-4.0); Triglycerides 78 mg/dL (<150)
[2024-03-15 15:38] LABS: Alkaline Phosphatase 94 U/L (39-117)
== END 2024-03-15 10:45 | disposition home or self-care (01) ==
LOC: HO.WFDLDS 10:44
PROVIDERS: Visit Provider Family Medicine
DX: Z00.00 Encounter for general adult medical examination without abnormal findings (principal); M17.0 Bilateral primary osteoarthritis of knee; I10 Essential (primary) hypertension
CPT/HCPCS: 36415; 80053; 80061; 81003; 82043; 82570; 84443; 85025

== ENCOUNTER 2024-03-17 10:50 | Outpatient (AMB) | payer MEDICARE, SELFPAY ==
--- NOTE | 2024-03-17 11:28 | A.OFFPC_ITS ---
Vital Signs 03/17/24 11:32 Height 5 ft 5 in Weight 196 lb 6 oz BMI 32.7 BP 93/51 L Blood Pressure Location Rt brachial Position Sitting Respiration 14 Pulse 66 Pulse Source Pulse Oximeter Temp 97.3 F Temp Source Temporal Artery Scan Pulse Oximetry (%) 97 Oxygen Delivery Method Room Air Intake Visit Reasons: f/u labs, paperwork Intake Note: f/u labs Allergies No Known Allergies Allergy (Verified 03/17/24 11:31) Tobacco use date assessed: 09/01/23 Dental Screening Dental Screen Date: 09/01/23 HPI f/u labs, paperwork HPI Details 64 y/o female presents to review labwork . 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 Labs drawn 03/15/24. Reviewed labs with pt. Elevated fasting glucose of 120. Triglycerides 78. TC 160. LDL 93. HDL 52. A1c today 03/17/24 is 6.1%. She is on Jardiance 10mg daily. Blood pressure today 93/51, 66p. She is on carvedilol 12.5mg b.i.d, entresto 1 tab b.i.d. HPI Comments History of Present Illness Details Documentation assistance for Jacob Radford MD, was provided by Carmelo Foley, [employer] on 03/17/2024 at 12:19 PM EST. I, Dr. Radford, have read, observed, and verified documentation. [facility] Medical History Heart failure with reduced ejection fraction Nonischemic cardiomyopathy ICD (implantable cardioverter-defibrillator) in place Edema Surgical History History of surgery on lower extremity (2020) History of implantable cardiac defibrillator (ICD) (~07/2015) History of left knee surgery Hx of cholecystectomy Family History Father CVD (cardiovascular disease) Mother CVD (cardiovascular disease) Pulmonary embolism Brother No problems noted. Brother No problems noted. Son No problems noted. Daughter No problems noted. Social History Housing: House Patient Tobacco Use Status: Current someday Tobacco user Tobacco use type: Cigarette e-Cigarette/Vaping Use: Never Used Second Hand Smoke Exposure: No service: No Current occupational status: disabled Current occupational exposures/hazards: No Cognitive needs: No Hearing needs: No Vision needs: No Questionnaire PHQ-9 Over the last 2 weeks, how often have you been bothered by any of the following problems? 1. Little interest or pleasure in doing things: not at all 2. Feeling down, depressed, or hopeless: not at all 3. Trouble falling or staying asleep, or sleeping too much: not at all 4. Feeling tired or having little energy: several days 5. Poor appetite or overeating: not at all 6. Feeling bad about yourself - or that you are a failure or have let yourself or your family down: not at all 7. Trouble concentrating on things, such as reading the newspaper or watching television: not at all 8. Moving or speaking so slowly that other people could have noticed. Or the opposite - being so fidgety or restless that you have been moving around a lot more than usual: not at all 9. Thoughts that you would be better off or of hurting yourself in some way: not at all Total score: 1 Source: Developed by Drs. Nitesh Mcarthur, Julieta Champion, Bill Lanza and colleagues, with an educational everardo from [employer]. Thrive Questionnaire Date Thrive assessed: 09/01/23 I am a: Patient What is your living situation today?: I have a steady place to live Within the past 12 months, did the food you bought not last and you didn't have the money to get more?: Sometimes True Within the past 12 months, did you worry whether your food would run out before you got money to buy more?: I choose not to answer this question Do you have trouble paying for medicines?: No Do you have trouble getting transportation to medical appointments?: No Do you have trouble paying your heating and electricity bill?: Yes Do you have trouble taking care of your child, family member or friend?: No Do you have trouble with day-to-day activities such as bathing, preparing meals, shopping, managing finances, etc.?: Yes Are you currently unemployed and looking for a job?: No Are you interested in more education?: No Please select the resources that you would like help with: Food, Utilities and Daily support Currently or been in a relationship where the following occur: No concerns reported THRIVE Score: 2 AUDIT C Alcohol Use Questionnaire (AUDIT-C) 1. How often do you have a drink containing alcohol?: Monthly or less Total Score: 1 YOMAIRA-7 AMB Questionnaire YOMAIRA-7 Date YOMAIRA - 7 assessed: 09/01/23 Feeling nervous, anxious, or on edge: 1 = Several days Not being able to stop or control worryin = Not at all Worrying too much about different things: 0 = Not at all Trouble relaxin = Not at all Being so restless that it is hard to sit still: 0 = Not at all Becoming easily annoyed or irritable: 0 = Not at all Feeling afraid as if something awful might happen: 0 = Not at all Total YOMAIRA-7 score (0-4 normal; 5-9 mild; 10-14 moderate; 15-21 severe): 1 Source: Developed by Drs. Nitesh Mcarthur, Julieta Champion, Bill Lanza and colleagues, with an educational everardo from [employer]. Review of Systems Const Denies chills, Denies fatigue, Denies fever(s), Denies headache(s) and Denies weakness ENT Denies dizziness and Denies headache(s) Card Denies chest pain, Denies lightheadedness, Denies dyspnea and Denies other (Palpitations) Resp Denies cough, Denies dyspnea, Denies wheezing and Denies other ( shortness of breath) Musc Denies numbness and Denies tingling Neuro Denies dizziness, Denies headache(s), Denies numbness, Denies tingling, Denies paresthesias and Denies weakness Psych Denies anxiety and Denies depression Endo Denies fatigue Aller/Immun Denies wheezing Physical exam (Primary Care) Vital Signs: Last Vital Signs Temp 97.3 F 03/17/24 11:32 Pulse 66 03/17/24 11:32 Resp 14 03/17/24 11:32 BP 93/51 L 03/17/24 11:32 Pulse Ox 97 03/17/24 11:32 Oxygen Delivery Method Room Air 03/17/24 11:32 BMI result Body Mass Index 32.7 Tobacco/Smoking Status: Tobacco use Status Tobacco use date assessed 09/01/23 03/17/24 11:30 Patient Tobacco Use Status Current someday Tobacco 03/17/24 11:30 Tobacco use type Cigarette 03/17/24 11:30 e-Cigarette/Vaping Use Never Used 03/17/24 11:30 PHQ-9: PHQ-9 Score PHQ-9: Total score 1 03/17/24 11:58 Thrive Assessment: Date of Thrive Assessment Date Thrive assessed 09/01/23 03/17/24 11:30 Currently or been in a relationship where the following occur: No concerns reported Const General: no acute distress and well developed Nutritional Appearance: well nourished Orientation/consciousness: patient oriented x3 HENMT Head: Yes normocephalic and Yes atraumatic Eyes General: appearance normal, both eyes and all related structures Pupils: Equal, round and reactive pupils present EOM: EOMs intact bilaterally Resp Effort & Inspection: normal respiratory effort Auscultation: clear to auscultation bilaterally Cardio Rate: regular rate Rhythm: regular rhythm Heart sounds: S1 normal heart sound present, S2 normal heart sound present, no gallops, no murmurs and no rubs Neuro General: patient oriented x3 and gait normal Cranial nerves: Yes Equal, round and reactive pupils present Psych Affect: normal affect Coding Level of Care Code Est Pt Level 3 (83950) Diagnoses Bilateral knee pain M25.561; M25.562 Unsteady gait R26.81 Diabetes type 2, controlled E11.9 HTN (hypertension) I10 Assessment & Plan Assessment & Plan (1) Bilateral knee pain: Code(s): M25.561 - Pain in right knee; M25.562 - Pain in left knee Category: Medical Plan: Ongoing?bilateral?knee?pain. Has?had?recommendations?for?injection?therapy?with??[facility]?but?he?recommende d?against?surgery?at?this?time I?have?given?her?a?script?for?a?wal ker?and?she?can?bring?this?to?a?medical?supply?store Had?also?made?referrals?for?MACHINE GRAINER?or?visiting?nurse?and this?regimen?is?underway (2) Unsteady gait: Code(s): R26.81 - Unsteadiness on feet Category: Medical Plan: As?above (3) Diabetes type 2, controlled: Code(s): E11.9 - Type 2 diabetes mellitus without complications Category: Medical Plan: Blood?sugars?are?elevated?despite?Jardiance A1c: 6.1% Continue?Jardiance?as?prescribed Encouraged?diet?low?in?sugars?and?starches Referred?to?ophthalmology?for?regular?diabetic?retinal?exam (4) HTN (hypertension): Code(s): I10 - Essential (primary) hypertension Category: Medical Plan: Patient?is?on?Entresto?and?also?carvedilol. Blood?pressure?is?low?and?she?notes?sometimes?feels?a?little?lightheaded. Blood?pressure?today?93/51.??Goal?is?less?than?140/90 She also?has?heart?rate?66?at?low?end?of?normal Encouraged?good?hydration Will?have?her?ease?up?on?her?carvedilol?she?will?take?6.25?mg?b.i.d. Orders: Orders AMB Hemoglobin A1c Today Z13.9 - Encounter for screening, unspecified Referrals Ophthalmology Referral E11.9 - Type 2 diabetes mellitus without complications Medications: Changed From carvedilol 12.5 mg PO BID 180 tabs 3RF To carvedilol 6.25 mg (1/2 x 12.5 mg) PO BID 180 tabs 3RF Refilled walker Light Weight Walker. Daily As directed, 999 days 1 ea 0RF M17.0 - Bilateral primary osteoarthritis of knee, M25.561 - Pain in right knee, M25.562 - Pain in left knee, R26.81 - Unsteadiness on feet
[2024-03-17 11:32] VITALS: BP 93/51; PULSE 66; RESP 14; TEMP 36.3; O2SAT 97; BMI 32.7
== END 2024-03-17 12:34 | disposition home or self-care (01) ==
PROVIDERS: PCP Family Medicine; Visit Provider Family Medicine
DX: M25.561 Pain in right knee (principal); M25.562 Pain in left knee; R26.81 Unsteadiness on feet; E11.9 Type 2 diabetes mellitus without complications; I10 Essential (primary) hypertension

== ENCOUNTER → 2024-03-17 10:50 | Outpatient (BNVA) | payer MEDICARE, SELFPAY | PROVIDERS: PCP Family Medicine; Visit Provider Family Medicine | DX: M25.561 Pain in right knee (principal); M25.562 Pain in left knee; R26.81 Unsteadiness on feet; E11.9 Type 2 diabetes mellitus without complications; I10 Essential (primary) hypertension | CPT/HCPCS: 96127; 99212 ==

== ENCOUNTER → 2024-03-17 23:59 | Outpatient (BNV) | payer MEDICARE, SELFPAY ==
--- NOTE | 2024-03-22 15:49 | MHC.OFFVIS ---
Intake Visit Reasons: Remote HF monitoring- Medtronic Allergies No Known Allergies Allergy (Verified 03/17/24 11:31) [facility] Medical History Heart failure with reduced ejection fraction Nonischemic cardiomyopathy ICD (implantable cardioverter-defibrillator) in place Edema Surgical History History of surgery on lower extremity (2020) History of implantable cardiac defibrillator (ICD) (~07/2015) History of left knee surgery Hx of cholecystectomy Family History Father CVD (cardiovascular disease) Mother CVD (cardiovascular disease) Pulmonary embolism Brother No problems noted. Brother No problems noted. Son No problems noted. Daughter No problems noted. Social History Housing: House Patient Tobacco Use Status: Current someday Tobacco user Tobacco use type: Cigarette e-Cigarette/Vaping Use: Never Used Second Hand Smoke Exposure: No service: No Current occupational status: disabled Current occupational exposures/hazards: No Cognitive needs: No Hearing needs: No Vision needs: No Office Procedures Cardiac Device Check Cardiac Device Check Details: Remote heart failure report generated 03/17/2024. Heart failure parameters are within normal limits with rising. Will continue to monitor [id number] Cardiac Device Interrogation, cardio physiologic monitor Procedure code (CPT) selection complete Assessment & Plan Assessment & Plan (1) ICD (implantable cardioverter-defibrillator) in place: Comment: Medtronic dual-chamber ICD Code(s): Z95.810 - Presence of automatic (implantable) cardiac defibrillator Category: Medical Plan: See above Coding Level of Care Code Procedure Only Diagnoses ICD (implantable cardioverter-defibrillator) in place Z95.810 CPT Codes Cardiac Device Check - Cardiac Device 15: [id number] Cardiac Device Interrogation, cardio physiologic monitor ([id number])
== END ==
PROVIDERS: PCP Family Medicine; Visit Provider Internal Medicine Cardiovascular Disease
DX: Z45.02 Encounter for adjustment and management of automatic implantable cardiac defibrillator (principal)
CPT/HCPCS: 93297

== ENCOUNTER → 2024-04-20 23:59 | Outpatient (BNV) | payer MEDICARE, SELFPAY ==
--- NOTE | 2024-04-28 15:47 | MHC.OFFVIS ---
Intake Visit Reasons: Remote HF monitoring- [employer]tr[employer] Allergies No Known Allergies Allergy (Verified 03/17/24 11:31) [facility] Medical History Heart failure with reduced ejection fraction Nonischemic cardiomyopathy ICD (implantable cardioverter-defibrillator) in place Edema Surgical History History of surgery on lower extremity (2020) History of implantable cardiac defibrillator (ICD) (~07/2015) History of left knee surgery Hx of cholecystectomy Family History Father CVD (cardiovascular disease) Mother CVD (cardiovascular disease) Pulmonary embolism Brother No problems noted. Brother No problems noted. Son No problems noted. Daughter No problems noted. Social History Housing: House Patient Tobacco Use Status: Current someday Tobacco user Tobacco use type: Cigarette e-Cigarette/Vaping Use: Never Used Second Hand Smoke Exposure: No service: No Current occupational status: disabled Current occupational exposures/hazards: No Cognitive needs: No Hearing needs: No Vision needs: No Office Procedures Cardiac Device Check Cardiac Device Check Details: Remote heart failure report generated 04/20/2024. Heart failure parameters are stable [id number] Cardiac Device Interrogation, cardio physiologic monitor Procedure code (CPT) selection complete Assessment & Plan Assessment & Plan (1) ICD (implantable cardioverter-defibrillator) in place: Comment: Medtronic dual-chamber ICD Code(s): Z95.810 - Presence of automatic (implantable) cardiac defibrillator Category: Medical Plan: See above Coding Level of Care Code Procedure Only Diagnoses ICD (implantable cardioverter-defibrillator) in place Z95.810 CPT Codes Cardiac Device Check - Cardiac Device 15: [id number] Cardiac Device Interrogation, cardio physiologic monitor ([id number])
== END ==
PROVIDERS: PCP Family Medicine; Visit Provider Internal Medicine Cardiovascular Disease
DX: Z45.02 Encounter for adjustment and management of automatic implantable cardiac defibrillator (principal)
CPT/HCPCS: 93297

== ENCOUNTER → 2024-04-20 23:59 | Outpatient (BNV) | payer MEDICARE, SELFPAY ==
--- NOTE | 2024-04-28 15:48 | A.OFFVIS_ITS ---
Intake Visit Reasons: Remote ICD check- [employer] Allergies No Known Allergies Allergy (Verified 03/17/24 11:31) [facility] Medical History Heart failure with reduced ejection fraction Nonischemic cardiomyopathy ICD (implantable cardioverter-defibrillator) in place Edema Surgical History History of surgery on lower extremity (2020) History of implantable cardiac defibrillator (ICD) (~07/2015) History of left knee surgery Hx of cholecystectomy Family History Father CVD (cardiovascular disease) Mother CVD (cardiovascular disease) Pulmonary embolism Brother No problems noted. Brother No problems noted. Son No problems noted. Daughter No problems noted. Social History Housing: House Patient Tobacco Use Status: Current someday Tobacco user Tobacco use type: Cigarette e-Cigarette/Vaping Use: Never Used Second Hand Smoke Exposure: No service: No Current occupational status: disabled Current occupational exposures/hazards: No Cognitive needs: No Hearing needs: No Vision needs: No Office Procedures Cardiac Device Check Cardiac Device Check Details: Remote ICD report generated 04/20/2024. ICD function is adequate [id number] Cardiac Interrogation, implant defibrillator w/interim Procedure code (CPT) selection complete Assessment & Plan Assessment & Plan (1) ICD (implantable cardioverter-defibrillator) in place: Comment: Medtronic dual-chamber ICD Code(s): Z95.810 - Presence of automatic (implantable) cardiac defibrillator Category: Medical Plan: See above Coding Level of Care Code Procedure Only Diagnoses ICD (implantable cardioverter-defibrillator) in place Z95.810 CPT Codes Cardiac Device Check - Cardiac Device 13: [id number] Cardiac Interrogation, implant defibrillator w/interim ([id number])
== END ==
PROVIDERS: PCP Family Medicine; Visit Provider Internal Medicine Cardiovascular Disease
DX: Z45.02 Encounter for adjustment and management of automatic implantable cardiac defibrillator (principal)
CPT/HCPCS: 93295

== ENCOUNTER → 2024-05-12 07:53 | Outpatient (REF) | payer MEDICARE, SELFPAY ==
--- NOTE | 2024-05-12 07:56 | CA_ITS ---
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 The visually estimated ejection fraction is between 35-40%. - No obvious valvular pathology seen on this study. Findings Left Ventricle Normal left ventricular cavity size. There is normal left ventricular wall thickness. The left ventricular systolic function is moderately decreased. The visually estimated ejection fraction is between 35-40%. There is moderate global hypokinesis. Diastolic function is normal for age. LV peak GLS -14.3%. Right Ventricle Normal right ventricular cavity size. There is low normal right ventricular systolic function. There is an ICD wire seen in the right ventricle. Atria The left atrium is mildly dilated. The right atrium is normal in size. Aortic Valve There is a normal trileaflet aortic valve. There is no aortic valve stenosis. There is no aortic valve regurgitation. Mitral Valve The mitral valve appears normal. There is trace mitral valve regurgitation. There is no mitral valve stenosis. Pulmonic Valve There is trace pulmonic valve regurgitation. Tricuspid Valve There is mild tricuspid valve regurgitation. There is no evidence of pulmonary hypertension. Great Vessels The asc aorta and aortic arch are normal in size. Venous The inferior vena cava is normal in size and collapses greater than 50% with inspiration. Pericardium/Pleural There is no evidence of pericardial effusion. Recommendations, Care & Conclusions No obvious valvular pathology seen on this study. Measurements 2D Linear Measurements IVSd: 1.01 0.6-0.9/0.6-1.0 cm LVIDd: 5.62 3.9-5.3/4.2-5.9 cm LVIDd Index: 3.12 2.4-3.2/2.2-3.1 cm/m2 LVIDs: 4.53 2.0-3.6 cm LVPWd: 0.86 0.7-1.1 cm LA Diam: 4.60 2.7-3.8/3.0-4.0 cm LAIDs Index: 2.56 1.5-2.3 cm/m2 LV Mass: 252.74 67-162/88-224 g LV Mass Index: 140.41 43-95/49-115 g/m2 LVOT Diam: 2.40 3.0+(-)1.3 cm 2D Systolic Function EF 4C: 38.10 >55% EF 2C: 39.60 >55% EF BiP: 40.30 >55% Mitral Valve MV Pk E: 0.44 MV PK A: 0.52 MV Decel Time: 242.00 E/A: 0.80 E'Lateral: 6.74 E'Medial: 4.13 E/E' Med: 10.60 E/E' Lat: 6.50 PHT: 71.00 MVA PHT: 3.10 Decel [place]: 1.81 Aortic Valve AoV Pk Ha: 1.15 AoV Mn Ha: 0.82 AoV VTI: 0.24 AoV Pk Grad: 5.00 Aov Mn Grad: 3.00 MILADIS Cont.VTI: 3.01 LVOT LVOT Pk Ha: 0.71 LVOT Mn Ha: 0.49 LVOT VTI: 0.16 LVOT Pk Grad: 2.00 LVOT Mn Grad: 1.00 LVOT Diam: 2.40 LVOT Area: 4.52 Diastolic Function MV Pk E: 0.44 MV Pk A: 0.52 E/A: 0.80 E'Medial: 4.13 E/E' Med: 10.60 E' Laterial: 6.74 E/E' Lat: 6.50 Right Ventricle TAPSE (mm): 19.10 TVS' Ha: 10.10 Tricuspid Valve TR Pk Ha: 2.05 TR Pk Grad: 17.00 RA Press: 3.00 RVSP: 20.00 Great Vessels Aorta Sinus of Valsalva: 3.47 2.0-3.5 cm Ao Asc: 3.00 2.1-3.4 cm Ao Arch: 2.60 Updated in Other Vendor System with Status of Final Marco Burrows MD electronically signed on 05/14/2024 1:44:29 PM with status of Final
== END ==
LOC: HO.CARD 07:53
PROVIDERS: PCP Family Medicine; Visit Provider Internal Medicine Cardiovascular Disease
DX: I50.20 Unspecified systolic (congestive) heart failure (principal)
CPT/HCPCS: 93306; 93356

== ENCOUNTER → 2024-05-12 07:56 | Outpatient (BNV) | payer MEDICARE, SELFPAY | PROVIDERS: PCP Family Medicine; Visit Provider Internal Medicine | DX: I36.1 Nonrheumatic tricuspid (valve) insufficiency (principal) | CPT/HCPCS: 93306; 93356 ==

== ENCOUNTER 2024-05-16 10:50 | Outpatient (AMB) | payer MEDICARE, SELFPAY ==
--- NOTE | 2024-05-16 11:03 | A.OFFVIS_ITS ---
Vital Signs 05/16/24 11:07 Height 5 ft 5 in Weight 182 lb 15.739 oz BMI 30.4 BP 120/72 Blood Pressure Location Lt brachial Position Sitting Pulse 71 Intake Visit Reasons: 6 mth s/p echo Intake Note: 6 month follow-up with ekg after echo with Medtronic check feeling good Property Developer Required: No Allergies No Known Allergies Allergy (Verified 03/17/24 11:31) Medication List - Last Reconciled 05/16/24 by Lico Acevedo MD alprazolam 0.5 mg PO TID buprenorphine-naloxone 8-2 mg 0 mg sublingual carvedilol 6.25 mg (1/2 x 12.5 mg) PO BID empagliflozin (Jardiance) 10 mg PO DAILY furosemide 40 mg PO BID gabapentin 800 mg PO BEDTIME 90 days gabapentin 600 mg PO QID ibuprofen 600 mg PO TID PRN sacubitril-valsartan 24-26 mg (Entresto) 1 tab PO BID walker Light Weight Walker. Daily As directed, 999 days HPI Comments Details: Xiomara comes for follow-up. She has been doing very well from cardiac perspective. She has lost about 18 lb. No symptoms of lightheadedness or syncope. Denies any symptoms of palpitations, ICD discharge. Denies any shortness of breath, orthopnea, PND. Most recent echocardiogram shows mild improvement in LV ejection fraction. Overall doing quite well and tolerating her medications. COUNT INCLUDES THE [facility] Medical History Heart failure with reduced ejection fraction Nonischemic cardiomyopathy ICD (implantable cardioverter-defibrillator) in place Edema Surgical History History of surgery on lower extremity (2020) History of implantable cardiac defibrillator (ICD) (~07/2015) History of left knee surgery Hx of cholecystectomy Family History Father CVD (cardiovascular disease) Mother CVD (cardiovascular disease) Pulmonary embolism Brother No problems noted. Brother No problems noted. Son No problems noted. Daughter No problems noted. Social History Housing: House Patient Tobacco Use Status: Current someday Tobacco user Tobacco use type: Cigarette e-Cigarette/Vaping Use: Never Used Second Hand Smoke Exposure: No service: No Current occupational status: disabled Current occupational exposures/hazards: No Cognitive needs: No Hearing needs: No Vision needs: No Review of Systems Const Denies chills, Denies fatigue, Denies fever(s), Denies frequent falls, Denies weakness, Denies weight gain and Denies weight loss ENT Denies dizziness Card Denies chest pain, Denies leg edema, Denies lightheadedness, Denies palpitations, Denies dyspnea, Denies dyspnea on exertion, Denies orthopnea and Denies other (loss of consciousness) Resp Denies cough, Denies dyspnea and Denies dyspnea on exertion GI Denies hematochezia and Denies change in stool character Musc Denies abnormal gait, Denies muscle weakness, Denies numbness, Denies radiating pain into limb and Denies tingling Neuro Denies abnormal gait, Denies dizziness, Denies frequent falls, Denies numbness, Denies tingling and Denies weakness Endo Denies fatigue and Denies palpitations Physical Exam Vital Signs: Last Vital Signs Pulse 71 05/16/24 11:07 BP 120/72 05/16/24 11:07 BMI result Body Mass Index 30.4 Const General: cooperative, comfortable, no acute distress, alert and awake Nutritional Appearance: obese Orientation/consciousness: patient oriented x3 Limitations: no limitations HEENT Head: Yes normocephalic Neck Neck: Yes trachea midline, Yes supple and Yes no JVD Chest Chest palpation & inspection: normal inspection of the chest Resp Effort & Inspection: normal respiratory effort Auscultation: clear to auscultation bilaterally Cardio Jugular venous distension: no JVD Rate: regular rate Rhythm: regular rhythm and abnormal rhythm with ectopic beats Heart sounds: S1 normal heart sound present and S2 normal heart sound present GI Auscultation: normal bowel sounds Skin General skin exam: no rashes or lesions noted Neuro General: patient oriented x3 and no focal motor deficits Extrem General: Yes other (Left lower extremity swollen and red with wounds near both her malleoli, no) Psych Appearance: grossly normal Office Procedures Cardiac Device Check Cardiac Device Check Details: Dual-chamber Medtronic ICD in place. Programmed in MVP mode with rate response at 60 beats per minute. Atrial pacing 30% of the time. Atrial and ventricular sensing is adequate. Multiple short episodes of nonsustained VT noted. Brief episodes of atrial fibrillation noted. Atrial pacing thresholds excellent and reprogrammed to enhance battery life. Ventricular pacing thresholds excellent and reprogrammed to enhance battery life. Pacing and shock lead impedance is stable. Battery life is at about 10 months [id number] Cardiac Device Check, dual lead implantable defibrillator Procedure code (CPT) selection complete EKG Details: EKG shows normal sinus rhythm with occasional PVCs with Q-waves in lead 3 and AVF most likely due to body habitus with poor R-wave progression [id number], Complete Assessment & Plan Assessment & Plan (1) Heart failure with reduced ejection fraction: Code(s): I50.20 - Unspecified systolic (congestive) heart failure Category: Medical Plan: Heart failure with reduced ejection fraction, clinically euvolemic and well compensated. Recommend to continue current medical therapy. Daily weight monitoring avoidance salt loading was discussed. Will further uptitrate carvedilol for both neurohormonal modulation perspective as well as ventricular arrhythmia. See below. Encouraged to continue to participate in physical activity as tolerated. Continue participate in weight loss program. Continue current neurohormonal modulation with carvedilol, Entresto as well as Jardiance. (2) ICD (implantable cardioverter-defibrillator) in place: Comment: [employer] dual-chamber ICD Code(s): Z95.810 - Presence of automatic (implantable) cardiac defibrillator Category: Medical Plan: ICD in place, working well. Reprogrammed for adequate function. Will follow-up remotely for heart failure as well as device functioning and follow up in the clinic in 6 months time. (3) Nonsustained ventricular tachycardia: Code(s): I47.29 - Other ventricular tachycardia Category: Medical Plan: Nonsustained ventricular tachycardia noted without any ICD therapy. Will continue maximize beta-santos therapy as tolerated. Avoidance of stimulants was discussed. Will continue monitor telemetry. Will follow up in the clinic in 6 months time, sooner p.r.n.. Thank you for allowing me to partake in her care Medications: Changed From carvedilol 6.25 mg (1/2 x 12.5 mg) PO BID 180 tabs 3RF To carvedilol 12.5 mg PO BID 180 tabs 3RF Coding Level of Care Code Est Pt Level 4 (41243) Complex EM visit Add On G2211 Diagnoses Heart failure with reduced ejection fraction I50.20 ICD (implantable cardioverter-defibrillator) in place Z95.810 Nonsustained ventricular tachycardia I47.29 CPT Codes Cardiac Device Check - Cardiac Device 5: [id number] Cardiac Device Check, dual lead implantable defibrillator ([id number]) EKG - CPT: 35330-[id number], Complete ([id number])
[2024-05-16 11:07] VITALS: BP 120/72; PULSE 71; BMI 30.4
== END 2024-05-16 11:32 | disposition home or self-care (01) ==
PROVIDERS: PCP Family Medicine; Visit Provider Internal Medicine Cardiovascular Disease
DX: I50.20 Unspecified systolic (congestive) heart failure (principal); Z95.810 Presence of automatic (implantable) cardiac defibrillator; I47.29 Other ventricular tachycardia
CPT/HCPCS: 93010; 93283; 99214; G2211

== ENCOUNTER → 2024-05-16 10:50 | Outpatient (BNVA) | payer MEDICARE, SELFPAY | PROVIDERS: PCP Family Medicine; Visit Provider Internal Medicine Cardiovascular Disease | DX: Z45.02 Encounter for adjustment and management of automatic implantable cardiac defibrillator (principal); I50.20 Unspecified systolic (congestive) heart failure; I47.29 Other ventricular tachycardia; R94.31 Abnormal electrocardiogram [ECG] [EKG] | CPT/HCPCS: 93005; 99212 ==

== ENCOUNTER → 2024-05-24 23:59 | Outpatient (BNV) | payer MEDICARE, SELFPAY ==
--- NOTE | 2024-06-02 12:28 | MHC.OFFVIS ---
Intake Visit Reasons: Remote HF monitoring- Medtronic Allergies No Known Allergies Allergy (Verified 03/17/24 11:31) [facility] Medical History Heart failure with reduced ejection fraction Nonischemic cardiomyopathy ICD (implantable cardioverter-defibrillator) in place Edema Surgical History History of surgery on lower extremity (2020) History of implantable cardiac defibrillator (ICD) (~07/2015) History of left knee surgery Hx of cholecystectomy Family History Father CVD (cardiovascular disease) Mother CVD (cardiovascular disease) Pulmonary embolism Brother No problems noted. Brother No problems noted. Son No problems noted. Daughter No problems noted. Social History Housing: House Patient Tobacco Use Status: Current someday Tobacco user Tobacco use type: Cigarette e-Cigarette/Vaping Use: Never Used Second Hand Smoke Exposure: No service: No Current occupational status: disabled Current occupational exposures/hazards: No Cognitive needs: No Hearing needs: No Vision needs: No Office Procedures Cardiac Device Check Cardiac Device Check Details: Remote heart failure report generated 05/24/2024. Heart failure parameters are stable [id number] Cardiac Device Interrogation, cardio physiologic monitor Procedure code (CPT) selection complete Assessment & Plan Assessment & Plan (1) ICD (implantable cardioverter-defibrillator) in place: Comment: Medtronic dual-chamber ICD Code(s): Z95.810 - Presence of automatic (implantable) cardiac defibrillator Category: Medical Plan: See above Coding Level of Care Code Procedure Only Diagnoses ICD (implantable cardioverter-defibrillator) in place Z95.810 CPT Codes Cardiac Device Check - Cardiac Device 15: [id number] Cardiac Device Interrogation, cardio physiologic monitor ([id number])
== END ==
PROVIDERS: PCP Family Medicine; Visit Provider Internal Medicine Cardiovascular Disease
DX: Z45.02 Encounter for adjustment and management of automatic implantable cardiac defibrillator (principal)
CPT/HCPCS: 93297

== ENCOUNTER 2024-06-21 09:31 | Outpatient (AMB) | payer MEDICARE, SELFPAY ==
--- NOTE | 2024-06-21 09:39 | A.OFFPC_ITS ---
Vital Signs 06/21/24 09:47 Height 5 ft 5 in Weight 153 lb 2 oz BMI 25.5 BP 100/70 Blood Pressure Location Lt brachial Position Sitting Respiration 14 Pulse 87 Pulse Source Pulse Oximeter Temp 97.9 F Temp Source Oral Pulse Oximetry (%) 97 Oxygen Delivery Method Room Air Intake Visit Reasons: f/u diabetes, hypertension Intake Note: follow up DM & HTN Stone Layout Marker Required: No Allergies No Known Allergies Allergy (Verified 06/21/24 09:40) Medication List - Last Reconciled 06/21/24 by Jacob Radford MD alprazolam 0.5 mg PO TID buprenorphine-naloxone 8-2 mg 0 mg sublingual carvedilol 12.5 mg PO BID empagliflozin (Jardiance) 10 mg PO DAILY furosemide 40 mg PO BID gabapentin 800 mg PO BEDTIME 90 days gabapentin 600 mg PO QID ibuprofen 600 mg PO TID PRN sacubitril-valsartan 24-26 mg (Entresto) 1 tab PO BID walker Light Weight Walker. Daily As directed, 999 days Tobacco use date assessed: 09/01/23 Dental Screening Dental Screen Date: 09/01/23 HPI f/u diabetes, hypertension HPI Details 64 y/o female presents to f/u diabetes, hypertension. Had continued Jardiance as prescribed and encouraged lifestyle changes. Had referred her to ophthalmology. Last A1c 03/17/24 6.1%. A1c today 06/21/24 is 5.9%. Blood pressure today 100/70, 87p. She is on carvedilol 12.5mg b.i.d, Entresto. HPI Comments History of Present Illness Details Documentation assistance for Jacob Radford MD, was provided by Carmelo Foley,? Refuge Manager on 06/21/2024 at 10:16 AM DIANA. Dony, Dr. Radford, have read, observed, and verified documentation. ?? [facility] Medical History Heart failure with reduced ejection fraction Nonischemic cardiomyopathy ICD (implantable cardioverter-defibrillator) in place Edema Surgical History History of surgery on lower extremity (2020) History of implantable cardiac defibrillator (ICD) (~07/2015) History of left knee surgery Hx of cholecystectomy Family History Father CVD (cardiovascular disease) Mother CVD (cardiovascular disease) Pulmonary embolism Brother No problems noted. Brother No problems noted. Son No problems noted. Daughter No problems noted. Social History Housing: House Patient Tobacco Use Status: Current someday Tobacco user Tobacco use type: Cigarette e-Cigarette/Vaping Use: Never Used Second Hand Smoke Exposure: No service: No Current occupational status: disabled Current occupational exposures/hazards: No Cognitive needs: No Hearing needs: No Vision needs: No Questionnaire PHQ-9 Over the last 2 weeks, how often have you been bothered by any of the following problems? 1. Little interest or pleasure in doing things: not at all 2. Feeling down, depressed, or hopeless: not at all 3. Trouble falling or staying asleep, or sleeping too much: several days 4. Feeling tired or having little energy: not at all 5. Poor appetite or overeating: not at all 6. Feeling bad about yourself - or that you are a failure or have let yourself or your family down: not at all 7. Trouble concentrating on things, such as reading the newspaper or watching television: not at all 8. Moving or speaking so slowly that other people could have noticed. Or the opposite - being so fidgety or restless that you have been moving around a lot more than usual: not at all 9. Thoughts that you would be better off or of hurting yourself in some way: not at all Total score: 1 Source: Developed by Drs. Nitesh Mcarthur, Julieta Champion, Bill Lanza and colleagues, with an educational everardo from [employer]. Thrive Questionnaire Date Thrive assessed: 03/15/24 I am a: Patient What is your living situation today?: I have a steady place to live Within the past 12 months, did the food you bought not last and you didn't have the money to get more?: Sometimes True Within the past 12 months, did you worry whether your food would run out before you got money to buy more?: Sometimes True Do you have trouble paying for medicines?: No Do you have trouble getting transportation to medical appointments?: No Do you have trouble paying your heating and electricity bill?: No Do you have trouble taking care of your child, family member or friend?: No Do you have trouble with day-to-day activities such as bathing, preparing meals, shopping, managing finances, etc.?: Yes Are you currently unemployed and looking for a job?: No Are you interested in more education?: No Please select the resources that you would like help with: None Currently or been in a relationship where the following occur: I choose not to answer THRIVE Score: 2 AUDIT C Alcohol Use Questionnaire (AUDIT-C) 1. How often do you have a drink containing alcohol?: Never Total Score: 0 YOMAIRA-7 AMB Questionnaire YOMAIRA-7 Date YOMAIRA - 7 assessed: 09/01/23 Feeling nervous, anxious, or on edge: 1 = Several days Not being able to stop or control worryin = Several days Worrying too much about different things: 1 = Several days Trouble relaxin = Not at all Being so restless that it is hard to sit still: 0 = Not at all Becoming easily annoyed or irritable: 0 = Not at all Feeling afraid as if something awful might happen: 0 = Not at all Total YOMAIRA-7 score (0-4 normal; 5-9 mild; 10-14 moderate; 15-21 severe): 3 Source: Developed by Drs. Nitesh Mcarthur, Julieta Champion, Bill Lanza and colleagues, with an educational everardo from [employer]. Review of Systems Const Denies chills, Denies fatigue, Denies fever(s), Denies headache(s) and Denies weakness ENT Denies dizziness and Denies headache(s) Card Denies dyspnea Resp Denies cough, Denies dyspnea, Denies wheezing and Denies other (shortness of breath) Musc Denies numbness and Denies tingling Neuro Denies dizziness, Denies headache(s), Denies numbness, Denies tingling and Denies weakness Psych Denies anxiety and Denies depression Endo Denies fatigue Aller/Immun Denies wheezing Physical exam (Primary Care) Vital Signs: Last Vital Signs Temp 97.9 F 06/21/24 09:47 Pulse 87 06/21/24 09:47 Resp 14 06/21/24 09:47 BP 100/70 06/21/24 09:47 Pulse Ox 97 06/21/24 09:47 Oxygen Delivery Method Room Air 06/21/24 09:47 BMI result Body Mass Index 25.5 Tobacco/Smoking Status: Tobacco use Status Tobacco use date assessed 09/01/23 06/21/24 09:44 Patient Tobacco Use Status Current someday Tobacco 06/21/24 09:44 Tobacco use type Cigarette 06/21/24 09:44 e-Cigarette/Vaping Use Never Used 06/21/24 09:44 PHQ-9: PHQ-9 Score PHQ-9: Total score 1 06/21/24 10:00 Thrive Assessment: Date of Thrive Assessment Date Thrive assessed 03/15/24 06/21/24 09:44 Currently or been in a relationship where the following occur: I choose not to answer Const General: well developed; No acute distress Nutritional Appearance: well nourished Orientation/consciousness: patient oriented x3 HENMT Head: Yes normocephalic and Yes atraumatic Eyes General: appearance normal, both eyes and all related structures Pupils: Equal, round and reactive pupils present EOM: EOMs intact bilaterally Resp Effort & Inspection: normal respiratory effort Neuro General: patient oriented x3 and gait normal Cranial nerves: Yes Equal, round and reactive pupils present Psych Affect: normal affect Results AMB Hemoglobin A1c AMB Hemoglobin A1c 5.9 % Last Edit by Simin Rios CMA on 06/21/24 10:07 Results Reviewed Results Reviewed: Laboratory Last Values Hgb A1c (Clinic) 5.9 % (4.0-6.0) 06/21/24 09:58 Coding Level of Care Code Est Pt Level 3 (58893) Diagnoses Diabetes type 2, controlled E11.9 HTN (hypertension) I10 Nonischemic cardiomyopathy I42.8 Assessment & Plan Assessment & Plan (1) Diabetes type 2, controlled: Code(s): E11.9 - Type 2 diabetes mellitus without complications Category: Medical Plan: Mild/early?diabetes. A1c?is?controlled.??Goal?is?less?than?7%.??She?is?on?Jardiance?for?this?as?well? as?neuro?hormonal?control?for nonischemic?cardiomyopathy?with?heart?failure Continue?Jardiance?as?prescribed She?has?seen?an?public relations studies director?recently?and?I?will?request?the?note We?discussed?today?that?although?she?was?started?on?Jardiance?for?neurohormonal? properties?regardin g?her?heart?disease,?her?A1c?had?reach?6.1%?and?Jardiance?typically?decreases?A1 c?from?.5 to .8% - expected?A1c?without?Jardiance?would?be?greater?than?6.5%. Patient?understands (2) HTN (hypertension): Code(s): I10 - Essential (primary) hypertension Category: Medical Plan: Blood?pressure?is?controlled.??Goal?is?less?than?130/80 Continue?current?medication?regimen (3) Nonischemic cardiomyopathy: Code(s): I42.8 - Other cardiomyopathies Category: Medical Plan: Patient?is?stable He?has?an?ICD?and?is?on?Entresto?and?carvedilol?as?well?as?Jardiance Continue?current?medication?regimen Follow-up?with?Cardiology?as?recommended Orders: Orders AMB Hemoglobin A1c Today E11.9 - Type 2 diabetes mellitus without complications
[2024-06-21 09:47] VITALS: BP 100/70; PULSE 87; RESP 14; TEMP 36.6; O2SAT 97; BMI 25.5
--- OUTSIDE RECORDS SUMMARY | 2024-06-21 10:18 | XMS_ITS | Encounter Summary ---
Author Organization [facility] Address [address] [place] [id number] Care Team Providers Care Headliner Installer Name Role Phone Nima Thapa MD Primary Care Provider [phone]- [phone] Kushal Baker MD Primary Care Provider Carlito Santos MD Unavailable [phone] Encounter Details Date Type Department Care Team (Late st Contact Info) Description 11/13/2017 Scanned Document [facility] [place] [address] [place] [id number] Carlito Santos MD [facility] [place] [address] [facility] A Social History Tobacco Use Types Packs/Day Years Used Date Smoking Tobacco: Former Cigarettes Q uit: 04/14/2017 Smokeless Tobacco: Never Alcohol Use Standard Drinks/Week Comments Yes 0 (1 standard drink = 0.6 oz pur e alcohol) occasionally Sex and Gender Information Value Date Recorded Sex Assigned at Not on file Gender Identity Not on file Sexual Orientation Not on file documented as of this encounter Plan of Treatment Not on file documented as of this encounter Visit Diagnoses Not on filedocumented in this encounter Care Teams Headliner Installer Relationship Specialty Start Date End Date Nima Thapa MD [address] [facility] [address] [place] [address] PCP - General 11/06/17 11/15/17 Kushal Baker MD [address] [place] [address] Dr Dominguez [address] [place] [id number] PCP - General Internal Medicine 11/16/17 Carlito Santos MD [address] [place] [address] Dr Dominguez [address] [place] [id number] Consulting Provider Cardiovascular Disease 11/16/17 Lico Acevedo MD [facility] D[employer]ified Crops Farmer [address] [facility], [address] [place] [address] Consulting Provider Cardiovascular Disease 11/16/17 documented as of this encounter
--- OUTSIDE RECORDS SUMMARY | 2024-06-21 10:18 | XMS_ITS | Clinical Summary ---
Author Organization [facility] Address [address] [place] [address] Care Team Providers Care Angle Shearer Name Role Phone Kushal Baker MD Primary Care Provider Carlito Santos MD Unavailable [phone] Allergies No known active allergies Medications Medication Sig Dispensed Refills Start Date End Date Status furosemide (LASIX) 40 MG tablet Take 80 mg by mouth daily. 2 11/04/2017 Active ALPRAZolam (XANAX) 1 MG tablet Take 1 mg by mouth 3 (three) times a day. 5 10/14/2017 Active spironolactone (ALDACTONE) 25 MG tablet Take 25 mg by mouth every evening. 5 10/29/2017 Active gabapentin (NEURONTIN) 800 MG tablet Take 800 mg by mouth nightly. 5 10/29/2017 Active carvedilol (COREG) 6.25 MG tablet Take 6.25 mg by mouth 2 (two) times a day. 5 10/29/2017 Active ENTRESTO 24-26 MG per tablet Take 1 tablet by mouth 2 (two) times a day. 5 10/28/2017 Active ibuprofen (MOTRIN) 600 MG tablet Take 600 mg by mouth 3 times daily (every 8 hours) as needed. for pain 2 08/07/2017 Active SUBOXONE 8-2 MG Film per SL film Place 2 Film under the tongue daily. 0 10/28/2017 Active Active Problems Problem Noted Date Diagnosed Date NSVT (nonsustained ventricular tachycardia) 11/01 Chronic pain syndrome 11/16/2017 Anxiety 11/16/2017 DVT (deep venous thrombosis) 11/16/2017 Pulmonary embolism 11/16/2017 S/P ICD (internal cardiac defibrillator) procedu re 11/16/2017 NICM (nonischemic cardiomyopathy) 11/06/2017 Overview (11/06/2017): Added automatically from request for surgery [id number] AICD lead malfunction 11/06/2017 Overview (11/06/2017): Added automatically from request for surgery [id number] Family History Medical History Relation Name Comments Heart attack Father Heart disease Father Blood Clots Mother Relation Name Status Comments Father Mother Social History Tobacco Use Types Packs/Day Years Used Date Smoking Tobacco: Former Cigarettes Q uit: 04/14/2017 Smokeless Tobacco: Never Alcohol Use Standard Drinks/Week Comments Yes 0 (1 standard drink = 0.6 oz pur e alcohol) occasionally. Limited intake Sex and Gender Information Value Date Recorded Sex Assigned at Not on file Gender Identity Not on file Sexual Orientation Not on file Last Filed Vital Signs Vital Sign Reading Time Taken Comments Blood Pressure 96/54 11/17/2017 8:00 AM EDT Pulse 66 11/17/2017 8:00 AM EDT Temperature 36.2 ??C (97.1 ??F) 11/17/2017 8:00 AM ED T Respiratory Rate 16 11/17/2017 8:00 AM EDT Oxygen Saturation 98% 11/17/2017 8:00 AM EDT Inhaled Oxygen Concentration - - Weight 92.2 kg (203 lb 4.8 oz) 11/17/2017 8:00 A M EDT Height 154.9 cm (5' 0.98 ) 11/16/2017 6:44 AM ED T Body Mass Index 38.43 11/16/2017 6:44 AM EDT Plan of Treatment Health Maintenance Due Date Last Done Comments Hepatitis C Virus Screening 1961 HIV Screening 1974 DTaP/Tdap/Td Vaccines (1 - Tdap) 02/05/1980 Pap Smear (Ages 21-65) 1982 Mammogram 2001 Colonoscopy 2006 Pneumococcal Vaccines 50+ (1 of 1 - PCV) 2011 Zoster (Shingles) Vaccine (1 of 2) 2011 Influenza Vaccine 12/03/2023 COVID-19 Vaccine ( - 2023-2 5 season) 2024 RSV Vaccine 60 years and old er and Patients (1 - 1-dose 75+ series) 02/05/2036 Hepatitis B Vaccines Aged Out No long er eligible based on patient's age to complete this topic Pneumococcal Vaccine: Pediat emilia (0-5 Years) and At-Risk Patients (6 to 49 Years) Aged Out No longer eligible b ased on patient's age to complete this topic Medical Devices Implanted Type Area Senior Java [id number] Developer Device Identifier Shelf Expiration Date Model / Serial / Lot Evera Mri Xt Dr [id number] Icd-07/30/2015 Implanted: 016 (Quantity not on file) ICD / [id number] / [id number] Capsurefix Novus Mri Lead-07/30/2015 Implanted: 016 (Quantity not on file) Lead / [id number] / 6935m Sprint Quattro Mri-07/30/2015 Implanted: 016 (Quantity not on file) Explanted: 018 by Carlito Santos MD (Quantity not on file) Lead / [id number] / Lead Pacing 55cm Right Vntrc Df-4 Tripolar Screw - [id number] Implanted:Qty: 1 on 11/16/2017 by Carlito Santos MD at [facility] Lead [employer] 07/16/2019 [id number] / [id number] / Envelope Absorbable 3.3x2.9in Tyrx Polyarylate Minocycline - [id number] Implanted:Qty: 1 on 11/16/2017 by Carlito Santos MD at [facility] Mesh [employer] 01/31/2018 [id number] / / [id number] Advance Directives * Full Code (Latest Code Status on File) Date Activated Date Inactivated Comments 11/16/2017 11:41 AM Question Answer Comments Decision Thoroughly Discussed with: Patient Care Teams Angle Shearer Relationship Specialty Start Date End Date Kushal Baker MD [address] [place] [address] Dr Dominguez [address] [place] [id number] PCP - General Internal Medicine 11/16/17 Carlito Santos MD [address] [place] [address] Dr Dominguez [address] [place] [address] Consulting Provider Cardiovascular Disease 11/16/17 Lico Acevedo MD [facility] Kitchen Worker [address] [place] [address], [address] [place] [address] Consulting Provider Cardiovascular Disease 11/16/17
--- OUTSIDE RECORDS SUMMARY | 2024-06-21 10:18 | XMS_ITS | Encounter Summary ---
Author Organization [facility] Address [address] [place] [address] Care Team Providers Care Platform Consultant Name Role Phone Nima Thapa MD Primary Care Provider [phone] Kushal Baker MD Primary Care Provider [phone] Carlito Santos MD Unavailable [phone] Encounter Details Date Type Department Care Team (Late st Contact Info) Description 11/13/2017 Scanned Document [facility] [place] [address] [place] [address] Carlito Santos MD [facility] [place] [address] [facility] A Social History Tobacco Use Types Packs/Day [...] on filedocumented in this encounter Care Teams Platform Consultant Relationship Specialty Start Date End Date Nima Thapa MD [address] [facility] [address] [place] [address] PCP - General 11/06/17 11/15/17 Kushal Baker MD [address] [place] [address] Dr Dominguez [address] [place] [address] PCP - General Internal Medicine 11/16/17 Carlito Santos MD [address] [place] [address] Dr Dominguez [address] [place] [phone] Consulting Provider Cardiovascular Disease 11/16/17 Lico Acevedo MD [facility] [employer] [address] [facility], [address] [place] [address] Consulting Provider Cardiovascular Disease 11/16/17 documented as of this encounter
== END 2024-06-21 11:25 | disposition home or self-care (01) ==
PROVIDERS: PCP Family Medicine; Visit Provider Family Medicine
DX: E11.9 Type 2 diabetes mellitus without complications (principal); I10 Essential (primary) hypertension; I42.8 Other cardiomyopathies

== ENCOUNTER → 2024-06-21 09:31 | Outpatient (BNVA) | payer MEDICARE, SELFPAY | PROVIDERS: PCP Family Medicine; Visit Provider Family Medicine | DX: E11.9 Type 2 diabetes mellitus without complications (principal); I10 Essential (primary) hypertension; I42.8 Other cardiomyopathies | CPT/HCPCS: 83036; 99212 ==

== ENCOUNTER → 2024-06-27 23:59 | Outpatient (BNV) | payer MEDICARE, MEDICAID, SELFPAY ==
--- NOTE | 2024-06-27 15:37 | A.OFFVIS_ITS ---
Intake Visit Reasons: Remote HF monitoring- Medtronic Allergies No Known Allergies Allergy (Verified 06/21/24 09:40) [facility] Medical History Heart failure with reduced ejection fraction Nonischemic cardiomyopathy ICD (implantable cardioverter-defibrillator) in place Edema Surgical History History of surgery on lower extremity (2020) History of implantable cardiac defibrillator (ICD) (~07/2015) History of left knee surgery Hx of cholecystectomy Family History Father CVD (cardiovascular disease) Mother CVD (cardiovascular disease) Pulmonary embolism Brother No problems noted. Brother No problems noted. Son No problems noted. Daughter No problems noted. Social History Housing: House Patient Tobacco Use Status: Current someday Tobacco user Tobacco use type: Cigarette e-Cigarette/Vaping Use: Never Used Second Hand Smoke Exposure: No service: No Current occupational status: disabled Current occupational exposures/hazards: No Cognitive needs: No Hearing needs: No Vision needs: No Office Procedures Cardiac Device Check Cardiac Device Check Details: Remote heart failure report generated 06/27/2024. Heart failure parameters are stable [id number] Cardiac Device Interrogation, cardio physiologic monitor Procedure code (CPT) selection complete Assessment & Plan Assessment & Plan (1) ICD (implantable cardioverter-defibrillator) in place: Comment: Medtronic dual-chamber ICD Code(s): Z95.810 - Presence of automatic (implantable) cardiac defibrillator Category: Medical Plan: See above Coding Level of Care Code Procedure Only Diagnoses ICD (implantable cardioverter-defibrillator) in place Z95.810 CPT Codes Cardiac Device Check - Cardiac Device 15: [id number] Cardiac Device Interrogation, cardio physiologic monitor ([id number])
== END ==
PROVIDERS: PCP Family Medicine; Visit Provider Internal Medicine Cardiovascular Disease
DX: Z45.02 Encounter for adjustment and management of automatic implantable cardiac defibrillator (principal)
CPT/HCPCS: 93297

== ENCOUNTER → 2024-07-31 23:59 | Outpatient (BNV) | payer MEDICARE, MEDICAID, SELFPAY ==
--- NOTE | 2024-08-03 13:10 | MHC.OFFVIS ---
Intake Visit Reasons: Remote device check- Medtronic Allergies No Known Allergies Allergy (Verified 06/21/24 09:40) [facility] Medical History Heart failure with reduced ejection fraction Nonischemic cardiomyopathy ICD (implantable cardioverter-defibrillator) in place Edema Surgical History History of surgery on lower extremity (2020) History of implantable cardiac defibrillator (ICD) (~07/2015) History of left knee surgery Hx of cholecystectomy Family History Father CVD (cardiovascular disease) Mother CVD (cardiovascular disease) Pulmonary embolism Brother No problems noted. Brother No problems noted. Son No problems noted. Daughter No problems noted. Social History Housing: House Patient Tobacco Use Status: Current someday Tobacco user Tobacco use type: Cigarette e-Cigarette/Vaping Use: Never Used Second Hand Smoke Exposure: No service: No Current occupational status: disabled Current occupational exposures/hazards: No Cognitive needs: No Hearing needs: No Vision needs: No Office Procedures Cardiac Device Check Cardiac Device Check Details: Remote ICD report generated 07/31/2024. ICD function is adequate [id number]-Iarrpt Cardiac Interrogation, implant defibrillator w/interim Procedure code (CPT) selection complete Assessment & Plan Assessment & Plan (1) ICD (implantable cardioverter-defibrillator) in place: Comment: Medtronic dual-chamber ICD Code(s): Z95.810 - Presence of automatic (implantable) cardiac defibrillator Category: Medical Plan: See above Coding Level of Care Code Procedure Only Diagnoses ICD (implantable cardioverter-defibrillator) in place Z95.810 CPT Codes Cardiac Device Check - Cardiac Device 13: 05578-Bkrljs Cardiac Interrogation, implant defibrillator w/interim ([id number])
== END ==
PROVIDERS: PCP Family Medicine; Visit Provider Internal Medicine Cardiovascular Disease
DX: Z45.02 Encounter for adjustment and management of automatic implantable cardiac defibrillator (principal)
CPT/HCPCS: 93295

== ENCOUNTER → 2024-07-31 23:59 | Outpatient (BNV) | payer MEDICARE, MEDICAID, SELFPAY ==
--- NOTE | 2024-08-03 13:09 | MHC.OFFVIS ---
Intake Visit Reasons: Remote HF monitoring- Medtronic Allergies No Known Allergies Allergy (Verified 06/21/24 09:40) [facility] Medical History Heart failure with reduced ejection fraction Nonischemic cardiomyopathy ICD (implantable cardioverter-defibrillator) in place Edema Surgical History History of surgery on lower extremity (2020) History of implantable cardiac defibrillator (ICD) (~07/2015) History of left knee surgery Hx of cholecystectomy Family History Father CVD (cardiovascular disease) Mother CVD (cardiovascular disease) Pulmonary embolism Brother No problems noted. Brother No problems noted. Son No problems noted. Daughter No problems noted. Social History Housing: House Patient Tobacco Use Status: Current someday Tobacco user Tobacco use type: Cigarette e-Cigarette/Vaping Use: Never Used Second Hand Smoke Exposure: No service: No Current occupational status: disabled Current occupational exposures/hazards: No Cognitive needs: No Hearing needs: No Vision needs: No Office Procedures Cardiac Device Check Cardiac Device Check Details: Remote heart failure report generated 08/01/2024. Heart failure parameters are within normal limits [id number]-Ljveqa Cardiac Device Interrogation, cardio physiologic monitor Procedure code (CPT) selection complete Assessment & Plan Assessment & Plan (1) ICD (implantable cardioverter-defibrillator) in place: Comment: Medtronic dual-chamber ICD Code(s): Z95.810 - Presence of automatic (implantable) cardiac defibrillator Category: Medical Plan: See above Coding Level of Care Code Procedure Only Diagnoses ICD (implantable cardioverter-defibrillator) in place Z95.810 CPT Codes Cardiac Device Check - Cardiac Device 15: [id number] Cardiac Device Interrogation, cardio physiologic monitor ([id number])
== END ==
PROVIDERS: PCP Family Medicine; Visit Provider Internal Medicine Cardiovascular Disease
DX: Z45.02 Encounter for adjustment and management of automatic implantable cardiac defibrillator (principal)
CPT/HCPCS: 93297

== ENCOUNTER → 2024-09-03 23:59 | Outpatient (BNV) | payer MEDICARE, MEDICAID, SELFPAY ==
--- NOTE | 2024-09-08 09:05 | MHC.OFFVIS ---
Intake Visit Reasons: Remote HF monitoring- Medtronic Allergies No Known Allergies Allergy (Verified 06/21/24 09:40) [facility] Medical History Heart failure with reduced ejection fraction Nonischemic cardiomyopathy ICD (implantable cardioverter-defibrillator) in place Edema Surgical History History of surgery on lower extremity (2020) History of implantable cardiac defibrillator (ICD) (~07/2015) History of left knee surgery Hx of cholecystectomy Family History Father CVD (cardiovascular disease) Mother CVD (cardiovascular disease) Pulmonary embolism Brother No problems noted. Brother No problems noted. Son No problems noted. Daughter No problems noted. Social History Housing: House Patient Tobacco Use Status: Current someday Tobacco user Tobacco use type: Cigarette e-Cigarette/Vaping Use: Never Used Second Hand Smoke Exposure: No service: No Current occupational status: disabled Current occupational exposures/hazards: No Cognitive needs: No Hearing needs: No Vision needs: No Office Procedures Cardiac Device Check Cardiac Device Check Details: Remote heart failure report shows borderline elevated OptiVol. Will follow up with the patient [id number] Cardiac Device Interrogation, cardio physiologic monitor Procedure code (CPT) selection complete Assessment & Plan Assessment & Plan (1) ICD (implantable cardioverter-defibrillator) in place: Comment: Medtronic dual-chamber ICD Code(s): Z95.810 - Presence of automatic (implantable) cardiac defibrillator Category: Medical Plan: See above Coding Level of Care Code Procedure Only Diagnoses ICD (implantable cardioverter-defibrillator) in place Z95.810 CPT Codes Cardiac Device Check - Cardiac Device 15: 29354-Izjmjl Cardiac Device Interrogation, cardio physiologic monitor ([id number])
== END ==
PROVIDERS: PCP Family Medicine; Visit Provider Internal Medicine Cardiovascular Disease
DX: Z45.02 Encounter for adjustment and management of automatic implantable cardiac defibrillator (principal)
CPT/HCPCS: 93297

== ENCOUNTER → 2024-10-07 23:59 | Outpatient (BNV) | payer MEDICARE, MEDICAID, SELFPAY ==
--- NOTE | 2024-10-11 18:11 | MHC.OFFVIS ---
Intake Visit Reasons: Remote HF monitoring- Medtronic Allergies No Known Allergies Allergy (Verified 10/10/24 10:11) [facility] Medical History Heart failure with reduced ejection fraction Nonischemic cardiomyopathy ICD (implantable cardioverter-defibrillator) in place Edema Surgical History History of surgery on lower extremity (2020) History of implantable cardiac defibrillator (ICD) (~07/2015) History of left knee surgery Hx of cholecystectomy Family History Father CVD (cardiovascular disease) Mother CVD (cardiovascular disease) Pulmonary embolism Brother No problems noted. Brother No problems noted. Son No problems noted. Daughter No problems noted. Social History Housing: House Patient Tobacco Use Status: Current someday Tobacco user Tobacco use type: Cigarette e-Cigarette/Vaping Use: Never Used Second Hand Smoke Exposure: No service: No Current occupational status: disabled Current occupational exposures/hazards: No Cognitive needs: No Hearing needs: No Vision needs: No Office Procedures Cardiac Device Check Cardiac Device Check Details: Remote heart failure report generated 10/07/2024. Heart failure parameters elevated. Will follow-up with patient clinically [id number] Cardiac Device Interrogation, cardio physiologic monitor Procedure code (CPT) selection complete Assessment & Plan Assessment & Plan (1) ICD (implantable cardioverter-defibrillator) in place: Comment: Medtronic dual-chamber ICD Code(s): Z95.810 - Presence of automatic (implantable) cardiac defibrillator Category: Medical Plan: See above Coding Level of Care Code Procedure Only Diagnoses ICD (implantable cardioverter-defibrillator) in place Z95.810 CPT Codes Cardiac Device Check - Cardiac Device 15: [id number] Cardiac Device Interrogation, cardio physiologic monitor ([id number])
== END ==
PROVIDERS: PCP Family Medicine; Visit Provider Internal Medicine Cardiovascular Disease
DX: I50.9 Heart failure, unspecified (principal); Z95.810 Presence of automatic (implantable) cardiac defibrillator
CPT/HCPCS: 93297

== ENCOUNTER 2024-10-10 10:01 | Outpatient (AMB) | payer MEDICARE, MEDICAID, SELFPAY ==
--- NOTE | 2024-10-10 10:07 | A.OFFVIS_ITS ---
Vital Signs 10/10/24 10:08 Height 5 ft 1 in Weight 182 lb BMI 34.4 Intake Visit Reasons: INJ-Bilat knee injection-last 10/08/23 Intake Note: Xiomara is a 64 year old female who presents today for repeat Bilateral Knee Injections, Last injections were administered bilaterally on 10/08/23. Due to medical history it has been noted that she is not an appropriate surgical candidate. Patient states some relief from the last injection but doesn't last. She reports no numbness or tingling. Allergies No Known Allergies Allergy (Verified 10/10/24 10:11) HPI HPI INJ-Bilat knee injection-last 10/08/23: Details: Xiomara is a 64 year old female who presents today for repeat Bilateral Knee Injections, Last injections were administered bilaterally on 10/08/23. Due to medical history it has been noted that she is not an appropriate surgical candidate. Patient states some relief from the last injection but doesn't last. She reports no numbness or tingling. Overall she has been doing well last year with benefits from injections. She describes pain with ambulation and standing from a seated position and she would like to get injections today. [facility] Medical History Heart failure with reduced ejection fraction Nonischemic cardiomyopathy ICD (implantable cardioverter-defibrillator) in place Edema Surgical History History of surgery on lower extremity (2020) History of implantable cardiac defibrillator (ICD) (~07/2015) History of left knee surgery Hx of cholecystectomy Family History Father CVD (cardiovascular disease) Mother CVD (cardiovascular disease) Pulmonary embolism Brother No problems noted. Brother No problems noted. Son No problems noted. Daughter No problems noted. Social History Housing: House Patient Tobacco Use Status: Current someday Tobacco user Tobacco use type: Cigarette e-Cigarette/Vaping Use: Never Used Second Hand Smoke Exposure: No service: No Current occupational status: disabled Current occupational exposures/hazards: No Cognitive needs: No Hearing needs: No Vision needs: No Physical Exam Vital Signs: BMI result Body Mass Index 34.4 Const General: no acute distress, alert and awake Orientation/consciousness: patient oriented x3 HEENT Head: Yes normocephalic and Yes atraumatic Eyes EOM: EOMs intact bilaterally Resp Effort & Inspection: normal respiratory effort and able to speak in complete sentences Cardio Jugular venous distension: no JVD Skin General skin exam: turgor normal Rashes: no rashes Neuro General: patient oriented x3 Extrem Other: Bilateral Knees: TTP medial compartment Edema much improved 5-130 degrees varus aligned bilateral knees Left leg has healed medial ankle surgical incision Psych Appearance: grossly normal Affect: normal affect Attitude: cooperative Office Procedures Joint Inj/Aspir; Non-Pain Clin Joint Injection/Drain Details: Injected 1 mL of Decadron and 3 mL 1% lidocaine and 3 mL of 0.25% Marcaine. Site was prepped using aseptic technique. Patient tolerated the procedure well. Shoulders, Hips, Knees, Knee Large Joint Injection : Bilateral Knee Coding Procedure code (CPT) selection complete Assessment & Plan Assessment & Plan (1) Arthritis of both knees: Code(s): M17.0 - Bilateral primary osteoarthritis of knee Category: Medical Plan: Bilateral knees injected without complication. If that is not helpful we would consider viscosupplementation. She is not a surgical candidate. She understands that she may return in 3-4 months for repeat injections. All her questions were answered. Coding Level of Care Code Est Pt Level 3 (68875) Diagnoses Arthritis of both knees M17.0 CPT Codes Shoulders, Hips, Knees, - Knee Large Joint Injection 08137: Bilateral Knee ([id number])
[2024-10-10 10:08] VITALS: BMI 34.4
--- OUTSIDE RECORDS SUMMARY | 2024-10-10 11:02 | XMS_ITS | Encounter Summary ---
Author Organization [facility] Address [address] [facility] [address] [place] [address] Care Team Providers Care International Recruiter Name Role Phone Unavailable Primary Care Provider Unavailabl e Reason for Visit * Reason Onset Date Comments Dr. Chan Scheduling for Filling 09/29/2024 Encounter Details Date Type Department Care Team (Late Contact Info) Description 09/29/2024 Telephone [facility] [address], [place] [phone] Joanne Samuel BDS [address], [place] [phone] Dr. Chan Scheduling for Filling Social History Tobacco Use Types Packs/Day Years Used Date Smoking Tobacco: Some Days Cigarettes Smokeless Tobacco: Never Alcohol Use Standard Drinks/Week Comments Never 0 (1 standard drink = 0.6 oz pur e alcohol) Comments Unknown Sex and Gender Information Value Date Recorded Sex Assigned at Female 07/26/2024 10:22 AM EDT Legal Sex Female 10:20 AM EDT Gender Identity Female 07/26/2024 10:22 AM EDT Sexual Orientation Choose not to disclose 2024 10:22 AM EDT documented as of this encounter Plan of Treatment Upcoming Encounters Date Type Department Care Team (Late st Contact Info) Description 12/20/2024 9:00 AM EDT Office Visit [facility] [address] [place] [address] Joanne Samuel BDS [address] [place] [phone] documented as of this encounter Visit Diagnoses Not on filedocumented in this encounter
== END 2024-10-10 11:09 | disposition home or self-care (01) ==
LOC: HO.HOS 10:02
PROVIDERS: PCP Family Medicine; Visit Provider Orthopaedic Surgery
DX: M17.0 Bilateral primary osteoarthritis of knee (principal)
CPT/HCPCS: 20610; 99213

== ENCOUNTER → 2024-10-10 10:01 | Outpatient (BNVA) | payer MEDICARE, MEDICAID, SELFPAY | PROVIDERS: PCP Family Medicine; Visit Provider Orthopaedic Surgery | DX: M17.0 Bilateral primary osteoarthritis of knee (principal) | CPT/HCPCS: 20610; 99212; J0665; J1100; J2003 ==

== ENCOUNTER 2024-11-14 10:47 | Outpatient (REF) | payer MEDICARE, SELFPAY ==
[2024-11-14 12:30] LABS: Anion Gap 11 (12-20); Blood Urea Nitrogen 18 mg/dL (9-16); Calcium 8.9 mg/dL (8.4-10.2); Carbon Dioxide 25 mmol/L (22-29); Chloride 110 mmol/L (96-108); Estimated Glomerular Filt Rate 49; Potassium 3.1 mmol/L (3.3-5.1); Sodium 143 mmol/L (135-145)
== END 2024-11-14 10:48 | disposition home or self-care (01) ==
LOC: HO.LAB 10:47
PROVIDERS: PCP Family Medicine; Visit Provider Internal Medicine Cardiovascular Disease
DX: I50.20 Unspecified systolic (congestive) heart failure (principal); Z95.810 Presence of automatic (implantable) cardiac defibrillator; Z79.899 Other long term (current) drug therapy
CPT/HCPCS: 36415; 80048; 99212

== ENCOUNTER 2024-11-14 10:47 | Outpatient (AMB) | payer MEDICARE, SELFPAY ==
[2024-11-14 10:52] VITALS: BP 110/70; PULSE 85; BMI 30.8
--- NOTE | 2024-11-14 10:52 | MHC.OFFVIS ---
Vital Signs 11/14/24 10:52 Height 5 ft 5 in Weight 185 lb 3.013 oz BMI 30.8 BP 110/70 Blood Pressure Location Lt brachial Position Sitting Pulse 85 Intake Visit Reasons: 6m follow up w device ck Intake Note: 6 month follow-up with Medtronic check feeling good Gas Operations Analyst Required: No Allergies No Known Allergies Allergy (Verified 10/10/24 10:11) Medication List - Last Reconciled 11/14/24 by Lico Acevedo MD alprazolam 0.5 mg PO TID buprenorphine-naloxone 8-2 mg 0 mg sublingual carvedilol 12.5 mg PO BID empagliflozin (Jardiance) 10 mg PO DAILY food supplemt, lactose-reduced (Ensure oral liquid) 1 ea PO DAILY 28 days furosemide 40 mg PO BID gabapentin 600 mg PO QID gabapentin 800 mg PO BEDTIME 90 days ibuprofen 600 mg PO TID PRN sacubitril-valsartan 24-26 mg (Entresto) 1 tab PO BID walker Light Weight Walker. Daily As directed, 999 days HPI Comments Details: Xiomara comes for follow-up. She says she has been doing very well from cardiac perspective. She has been exercising and been walking in the sand up and down the dunes and not having any worsening heart failure symptoms. She denies any prolonged palpitation irregular heartbeat. No lightheadedness, syncope, ICD discharge. No orthopnea, PND, leg edema. No exertional chest pain. Tolerating her medications well. [facility] Medical History Heart failure with reduced ejection fraction Nonischemic cardiomyopathy ICD (implantable cardioverter-defibrillator) in place Edema Surgical History History of surgery on lower extremity (2020) History of implantable cardiac defibrillator (ICD) (~07/2015) History of left knee surgery Hx of cholecystectomy Family History Father CVD (cardiovascular disease) Mother CVD (cardiovascular disease) Pulmonary embolism Brother No problems noted. Brother No problems noted. Son No problems noted. Daughter No problems noted. Social History Housing: House Patient Tobacco Use Status: Current someday Tobacco user Tobacco use type: Cigarette e-Cigarette/Vaping Use: Never Used Second Hand Smoke Exposure: No service: No Current occupational status: disabled Current occupational exposures/hazards: No Cognitive needs: No Hearing needs: No Vision needs: No Review of Systems Const Denies chills, Denies fatigue, Denies fever(s), Denies frequent falls, Denies weakness, Denies weight gain and Denies weight loss ENT Denies dizziness Card Denies chest pain, Denies leg edema, Denies lightheadedness, Denies palpitations, Denies dyspnea, Denies dyspnea on exertion, Denies orthopnea and Denies other (loss of consciousness) Resp Denies cough, Denies dyspnea and Denies dyspnea on exertion GI Denies hematochezia and Denies change in stool character Musc Denies abnormal gait, Denies muscle weakness, Denies numbness, Denies radiating pain into limb and Denies tingling Neuro Denies abnormal gait, Denies dizziness, Denies frequent falls, Denies numbness, Denies tingling and Denies weakness Endo Denies fatigue and Denies palpitations Physical Exam Vital Signs: Last Vital Signs Pulse 85 11/14/24 10:52 BP 110/70 11/14/24 10:52 BMI result Body Mass Index 30.8 Const General: cooperative, comfortable, no acute distress, alert and awake Nutritional Appearance: obese Orientation/consciousness: patient oriented x3 Limitations: no limitations HEENT Head: Yes normocephalic Neck Neck: Yes trachea midline, Yes supple and Yes no JVD Chest Chest palpation & inspection: normal inspection of the chest Resp Effort & Inspection: normal respiratory effort Auscultation: clear to auscultation bilaterally Cardio Jugular venous distension: no JVD Rate: regular rate Rhythm: regular rhythm and abnormal rhythm with ectopic beats Heart sounds: S1 normal heart sound present and S2 normal heart sound present GI Auscultation: normal bowel sounds Skin General skin exam: no rashes or lesions noted Neuro General: patient oriented x3 and no focal motor deficits Extrem General: Yes other (Left lower extremity swollen and red with wounds near both her malleoli, no) Psych Appearance: grossly normal Office Procedures Cardiac Device Check Cardiac Device Check Details: Dual-chamber Medtronic ICD in place. Multiple episodes of nonsustained VT noted. Programmed in MVP mode with rate response at 60 beats per minute. Atrial pacing 27% of the time. Atrial sensing is adequate and unchanged. Ventricular sensing is excellent. Atrial pacing thresholds adequate. Ventricular pacing thresholds are slightly elevated reprogrammed to provide adequate safety. Pacing and shock lead impedance is stable. Battery life is at about 5 months [id number] Cardiac Device Check, dual lead implantable defibrillator Procedure code (CPT) selection complete Assessment & Plan Assessment & Plan (1) Heart failure with reduced ejection fraction: Code(s): I50.20 - Unspecified systolic (congestive) heart failure Category: Medical Plan: Heart failure with reduced ejection fraction with moderate LV systolic dysfunction. Clinically doing well at this point time. Continue current neurohormonal modulation with carvedilol, Jardiance as well as Entresto therapy. Clinically euvolemic well compensated current diuretic dose. Management of heart failure was discussed and she understands that well. Continue current diuretic regimen. Daily weight monitoring avoidance salt loading was discussed. Can use extra Lasix as needed. Will continue monitor remotely for heart failure through the device. Continue participate in regular physical activity as tolerated. (2) ICD (implantable cardioverter-defibrillator) in place: Comment: Medtronic dual-chamber ICD Code(s): Z95.810 - Presence of automatic (implantable) cardiac defibrillator Category: Medical Plan: Dual-chamber ICD in place for primary prevention. Currently working well. Coming low off battery life. Will continue monitor remotely. Has multiple episodes of nonsustained VT but without any device therapy at this point time. Will continue to monitor. Continue carvedilol therapy. Avoidance of stimulants was discussed. Will follow up in the clinic in 6 months time after an echocardiogram. Thank you for allowing me to partake in her care Orders: Orders Basic Metabolic Panel Today I50.20 - Unspecified systolic (congestive) heart failure Coding Level of Care Code Est Pt Level 4 (87366) Complex EM visit Add On G2211 Diagnoses Heart failure with reduced ejection fraction I50.20 ICD (implantable cardioverter-defibrillator) in place Z95.810 CPT Codes Cardiac Device Check - Cardiac Device 5: [id number] Cardiac Device Check, dual lead implantable defibrillator ([id number])
--- OUTSIDE RECORDS SUMMARY | 2024-11-14 11:43 | XMS_ITS | Encounter Summary ---
Author Organization [employer] [facility] Address [address] [place] [address] Care Team Providers Care Vault Mechanic Name Role Phone Unavailable Primary Care Provider Unavailabl e Reason for Visit * Reason Onset Date Comments Dr. Chan Scheduling for Filling 09/29/2024 Encounter Details Date Type Department Care Team (Late Contact Info) Description 09/29/2024 Telephone [facility] [address] [place], [place] [phone] Joanne Samuel BDS [address] [place], [place] [phone] Dr. Chan Scheduling for Filling Social History [...] Description 12/20/2024 9:00 AM EDT Office Visit [facility] [address] [place] [address] Joanne Samuel BDS [address] [place] [address] [phone] documented as of this encounter Visit Diagnoses Not on filedocumented in this encounter
--- OUTSIDE RECORDS SUMMARY | 2024-11-14 11:43 | XMS_ITS | Encounter Summary ---
Author Organization [facility] Address [address] [place] [address] Care Team Providers Care Help Desk Associate Name Role Phone Nima Thapa MD Primary Care Provider [phone] Kushal Baker MD Primary Care Provider Carlito Santos MD Unavailable [phone] Encounter Details Date Type Department Care Team (Late st Contact Info) Description 11/13/2017 Scanned Document [facility] [place] [address] [address] Carlito Santos MD [facility] [place] [address] [facility] A Social History Tobacco Use Types Packs/Day Years Used Date Smoking Tobacco: Former Cigarettes Q uit: 04/14/2017 Smokeless Tobacco: Never Alcohol Use Standard Drinks/Week Comments Yes 0 (1 standard drink = 0.6 oz pur e alcohol) occasionally Comments Unknown Sex and Gender Information Value Date Recorded Sex Assigned at Not on file Legal Sex Female 3:38 PM EDT Gender Identity Not on file Sexual Orientation Not on file documented as of this encounter Plan of Treatment Not on file documented as of this encounter Visit Diagnoses Not on filedocumented in this encounter Care Teams Help Desk Associate Relationship Specialty Start Date End Date Nima Thapa MD [address] [facility] [address] [place] [address] PCP - General 11/06/17 11/15/17 Kushal Baker MD [address] [place] [address] [place] [address] PCP - General Internal Medicine 11/16/17 Carlito Santos MD [address] [place] [address] [place] [address] Consulting Provider Cardiovascular Disease 11/16/17 Lico Acevedo MD [facility] Shear Grinder Operator [address] [place] [address], [address] [place] [address] Consulting Provider Cardiovascular Disease 11/16/17 documented as of this encounter
== END 2024-11-14 11:23 | disposition home or self-care (01) ==
LOC: HO.HCS 10:48
PROVIDERS: PCP Family Medicine; Visit Provider Internal Medicine Cardiovascular Disease
DX: I50.20 Unspecified systolic (congestive) heart failure (principal); Z95.810 Presence of automatic (implantable) cardiac defibrillator
CPT/HCPCS: 93283; 99214; G2211

== ENCOUNTER → 2024-12-14 23:59 | Outpatient (BNV) | payer MEDICARE, SELFPAY ==
--- NOTE | 2024-12-20 12:26 | A.OFFVIS_ITS ---
Intake Visit Reasons: Remote device check- Medtronic Allergies No Known Allergies Allergy (Verified 10/10/24 10:11) [facility] Medical History Heart failure with reduced ejection fraction Nonischemic cardiomyopathy ICD (implantable cardioverter-defibrillator) in place Edema Surgical History History of surgery on lower extremity (2020) History of implantable cardiac defibrillator (ICD) (~07/2015) History of left knee surgery Hx of cholecystectomy Family History Father CVD (cardiovascular disease) Mother CVD (cardiovascular disease) Pulmonary embolism Brother No problems noted. Brother No problems noted. Son No problems noted. Daughter No problems noted. Social History Housing: House Patient Tobacco Use Status: Current someday Tobacco user Tobacco use type: Cigarette e-Cigarette/Vaping Use: Never Used Second Hand Smoke Exposure: No service: No Current occupational status: disabled Current occupational exposures/hazards: No Cognitive needs: No Hearing needs: No Vision needs: No Office Procedures Cardiac Device Check Cardiac Device Check Details: Remote heart failure report generated 12/14/2024. Heart failure parameters are within normal limits [id number] Cardiac Device Interrogation, cardio physiologic monitor Procedure code (CPT) selection complete Assessment & Plan Assessment & Plan (1) ICD (implantable cardioverter-defibrillator) in place: Comment: Medtronic dual-chamber ICD Code(s): Z95.810 - Presence of automatic (implantable) cardiac defibrillator Category: Medical Plan: See above Coding Level of Care Code Procedure Only Diagnoses ICD (implantable cardioverter-defibrillator) in place Z95.810 CPT Codes Cardiac Device Check - Cardiac Device 15: [id number] Cardiac Device Interrogation, cardio physiologic monitor ([id number])
== END ==
PROVIDERS: PCP Family Medicine; Visit Provider Internal Medicine Cardiovascular Disease
DX: Z45.02 Encounter for adjustment and management of automatic implantable cardiac defibrillator (principal)
CPT/HCPCS: 93297

== ENCOUNTER 2024-12-15 09:44 | Outpatient (REF) | payer MEDICARE, SELFPAY ==
--- NOTE | ~2024-12-15 | MM_ITS ---
EXAMINATION: MM SCREENING DIGITAL BREAST TOMOSYNTHESIS, BILATERAL CLINICAL INFORMATION: Screening. Asymptomatic. COMPARISON: Mammography: Baseline. TECHNIQUE: Digital breast mammography with tomosynthesis is performed in both the craniocaudal and mediolateral oblique views along with computer-aided detection (CAD). FINDINGS: There are scattered areas of fibroglandular density (ACR BI-RADS breast composition Category b). Pacemaker overlies and obscures the superior posterior left breast on MLO view. There are no significant masses, abnormal calcifications, or other abnormalities. MM/MM tomosynthesis screening BI IMPRESSION: No mammographic evidence of malignancy. ASSESSMENT: BI-RADS BI-RADS 2 - Benign Findings RECOMMENDATION: Routine annual mammography screening. 1 year F/U This examination should not preclude the clinical evaluation of a suspicious palpable abnormality. This patient's information was entered into a reminder system with a target due date for their next mammogram. Electronically signed by: Edel Pineda DO 12/20/2024 11:53 AM EDT
--- OUTSIDE RECORDS SUMMARY | 2024-12-15 10:25 | XMS_ITS | Encounter Summary ---
Author Organization [employer] Address [address] [facility] 7[address] [place] [address] Care Team Providers Care Business Objects Consultant Name Role Phone Unavailable Primary Care Provider Unavailabl e Encounter Details Date Type Department Care Team (Latest Contact Info) Description 12/13/2024 Travel Social History Tobacco Use Types Packs/Day Years [...] Description 12/20/2024 9:00 AM EDT Office Visit [facility] [address] [place], [place] [phone] Joanne Samuel, BDS [address] [place], [place] [phone] documented as of this encounter Visit Diagnoses Not on filedocumented in this encounter
--- OUTSIDE RECORDS SUMMARY | 2024-12-15 10:25 | XMS_ITS | Encounter Summary ---
Author Organization [facility] Address [address] [place] [address] Care Team Providers Care Duplicating Machine Operator Name Role Phone Nima Thapa MD Primary Care Provider [phone] Kushal Baker MD Primary Care Provider [phone] Carlito Santos MD Unavailable [phone] Encounter Details Date Type Department Care Team (Late st Contact Info) Description 11/13/2017 Scanned Document [facility] [place] [address] [address] Carlito Santos MD [facility] [place] [address] [facility] A Social History Tobacco Use Types [...] on filedocumented in this encounter Care Teams Duplicating Machine Operator Relationship Specialty Start Date End Date Nima Thapa MD [address] [facility] [address] [place] [address] PCP - General 11/06/17 11/15/17 Kushal Baker MD [address] [place] [address] [place] [address] PCP - General Internal Medicine 11/16/17 Carlito Santos MD [address] [place] [address] [place] [address] Consulting Provider Cardiovascular Disease 11/16/17 Lico Acevedo MD [facility] [employer] Nutrition Services Assistant [address] [place] [address], [address] [place] [address] Consulting Provider Cardiovascular Disease 11/16/17 documented as of this encounter
== END 2024-12-15 09:45 | disposition home or self-care (01) ==
LOC: HO.MAMMO 09:44
PROVIDERS: PCP Family Medicine; Visit Provider Family Medicine
DX: Z12.31 Encounter for screening mammogram for malignant neoplasm of breast (principal)
CPT/HCPCS: 77063; 77067

== ENCOUNTER → 2024-12-15 09:45 | Outpatient (BNV) | payer MEDICARE, SELFPAY | PROVIDERS: PCP Family Medicine; Visit Provider Internal Medicine | DX: Z12.31 Encounter for screening mammogram for malignant neoplasm of breast (principal) | CPT/HCPCS: 77063; 77067 ==

== ENCOUNTER → 2025-01-16 23:59 | Outpatient (BNV) | payer MEDICARE, SELFPAY ==
--- NOTE | 2025-01-18 13:05 | MHC.OFFVIS ---
Intake Visit Reasons: Remote device check- Medtronic Allergies No Known Allergies Allergy (Verified 10/10/24 10:11) [facility] Medical History Heart failure with reduced ejection fraction Nonischemic cardiomyopathy ICD (implantable cardioverter-defibrillator) in place Edema Surgical History History of surgery on lower extremity (2020) History of implantable cardiac defibrillator (ICD) (~07/2015) History of left knee surgery Hx of cholecystectomy Family History Father CVD (cardiovascular disease) Mother CVD (cardiovascular disease) Pulmonary embolism Brother No problems noted. Brother No problems noted. Son No problems noted. Daughter No problems noted. Social History Housing: House Patient Tobacco Use Status: Current someday Tobacco user Tobacco use type: Cigarette e-Cigarette/Vaping Use: Never Used Second Hand Smoke Exposure: No service: No Current occupational status: disabled Current occupational exposures/hazards: No Cognitive needs: No Hearing needs: No Vision needs: No Office Procedures Cardiac Device Check Cardiac Device Check Details: Remote heart failure report generated 01/16/2025. Heart failure parameters are stable [id number] Cardiac Device Interrogation, cardio physiologic monitor Procedure code (CPT) selection complete Assessment & Plan Assessment & Plan (1) ICD (implantable cardioverter-defibrillator) in place: Comment: Medtronic dual-chamber ICD Code(s): Z95.810 - Presence of automatic (implantable) cardiac defibrillator Category: Medical Plan: See above Coding Level of Care Code Procedure Only Diagnoses ICD (implantable cardioverter-defibrillator) in place Z95.810 CPT Codes Cardiac Device Check - Cardiac Device 15: [id number] Cardiac Device Interrogation, cardio physiologic monitor ([id number])
== END ==
PROVIDERS: PCP Family Medicine; Visit Provider Internal Medicine Cardiovascular Disease
DX: Z45.02 Encounter for adjustment and management of automatic implantable cardiac defibrillator (principal)
CPT/HCPCS: 93297

== ENCOUNTER 2025-01-30 14:31 | Outpatient (AMB) | payer MEDICARE, SELFPAY ==
[2025-01-30 14:33] VITALS: BP 108/60; PULSE 88; O2SAT 96; BMI 33.2
--- NOTE | 2025-01-30 14:33 | A.OFFPC_ITS ---
Vital Signs 01/30/25 14:33 Height 5 ft 5 in Weight 199 lb 8 oz BMI 33.2 BP 108/60 Blood Pressure Location Rt brachial Position Sitting Pulse 88 Pulse Source Pulse Oximeter Pulse Oximetry (%) 96 Oxygen Delivery Method Room Air Intake Visit Reasons: follow-up her blood pressure mild/early diabetes Allergies No Known Allergies Allergy (Verified 01/30/25 14:37) Medication List - Last Reconciled 01/30/25 by Jacob Radford MD alprazolam 0.5 mg PO TID buprenorphine-naloxone 8-2 mg 0 mg sublingual carvedilol 12.5 mg PO BID empagliflozin (Jardiance) 10 mg PO DAILY food supplemt, lactose-reduced (Ensure oral liquid) 1 ea PO DAILY 28 days furosemide 40 mg PO BID gabapentin 800 mg PO BEDTIME 90 days gabapentin 600 mg PO QID ibuprofen 600 mg PO TID PRN sacubitril-valsartan 24-26 mg (Entresto) 1 tab PO BID walker Light Weight Walker. Daily As directed, 999 days Tobacco use date assessed: 01/30/25 Dental Screening Dental Screen Date: 01/30/25 Did you have a dental visit in the last 12 months?: Yes Did you have a dental problem in the last 6 months where you did not have access to dental care?: No Was dental information given to patient?: Patient has dentist HPI follow-up her blood pressure mild/early diabetes HPI Details 64 y/o female presents to f/u HTN, diabe omaira. BP today 108/60, 88p. She is on Entresto b.i.d, carvedilol 12.5mg b.i.d. A1c today 01/30/25 5.9%. She is on Jardiance 10mg daily. [facility] Medical History Heart failure with reduced ejection fraction Nonischemic cardiomyopathy ICD (implantable cardioverter-defibrillator) in place Edema Surgical History History of surgery on lower extremity (2020) History of implantable cardiac defibrillator (ICD) (~07/2015) History of left knee surgery Hx of cholecystectomy Family History Father CVD (cardiovascular disease) Mother CVD (cardiovascular disease) Pulmonary embolism Brother No problems noted. Brother No problems noted. Son No problems noted. Daughter No problems noted. Social History Housing: House Patient Tobacco Use Status: Current someday Tobacco user Tobacco use type: Cigarette Cigarettes Per Day: 2 e-Cigarette/Vaping Use: Never Used Second Hand Smoke Exposure: No service: No Current occupational status: disabled Current occupational exposures/hazards: No Cognitive needs: No Hearing needs: No Vision needs: No Questionnaire PHQ-9 Over the last 2 weeks, how often have you been bothered by any of the following problems? 1. Little interest or pleasure in doing things: not at all 2. Feeling down, depressed, or hopeless: not at all 3. Trouble falling or staying asleep, or sleeping too much: several days 4. Feeling tired or having little energy: not at all 5. Poor appetite or overeating: not at all 6. Feeling bad about yourself - or that you are a failure or have let yourself or your family down: not at all 7. Trouble concentrating on things, such as reading the newspaper or watching television: not at all 8. Moving or speaking so slowly that other people could have noticed. Or the opposite - being so fidgety or restless that you have been moving around a lot more than usual: not at all 9. Thoughts that you would be better off or of hurting yourself in some way: not at all Total score: 1 Depression Screening Interpretation: Negative Depression Screening Done: Yes 60675 - PHQ-9 Billing: Yes Source: Developed by Drs. Nitesh Mcarthur, Julieta Champion, Bill Lanza and colleagues, with an educational everardo from [employer]. Thrive Questionnaire Date Thrive assessed: 06/21/24 I am a: Patient What is your living situation today?: I have a steady place to live Within the past 12 months, did the food you bought not last and you didn't have the money to get more?: Sometimes True Within the past 12 months, did you worry whether your food would run out before you got money to buy more?: Sometimes True Do you have trouble paying for medicines?: No Do you have trouble getting transportation to medical appointments?: No Do you have trouble paying your heating and electricity bill?: No Do you have trouble taking care of your child, family member or friend?: No Do you have trouble with day-to-day activities such as bathing, preparing meals, shopping, managing finances, etc.?: Yes Are you currently unemployed and looking for a job?: No Are you interested in more education?: No Please select the resources that you would like help with: None Currently or been in a relationship where the following occur: I choose not to answer THRIVE Score: 2 AUDIT C Alcohol Use Questionnaire (AUDIT-C) 1. How often do you have a drink containing alcohol?: Monthly or less 2. How many drinks containing alcohol do you have on a typical day when you are drinking?: 1 or 2 3. How often do you have six or more drinks on one occasion?: Never Total Score: 1 YOMAIRA-7 AMB Questionnaire YOMAIRA-7 Date YOMAIRA - 7 assessed: 06/21/24 Feeling nervous, anxious, or on edge: 1 = Several days Not being able to stop or control worryin = Several days Worrying too much about different things: 1 = Several days Trouble relaxin = Not at all Being so restless that it is hard to sit still: 0 = Not at all Becoming easily annoyed or irritable: 0 = Not at all Feeling afraid as if something awful might happen: 0 = Not at all Total YOMAIRA-7 score (0-4 normal; 5-9 mild; 10-14 moderate; 15-21 severe): 3 Source: Developed by Drs. Nitesh Mcarthur, Julieta Champion, Bill Lanza and colleagues, with an educational everardo from [employer]. Review of Systems Const Denies chills, Denies fatigue, Denies fever(s), Denies headache(s) and Denies weakness ENT Denies dizziness and Denies headache(s) Card Denies dyspnea Resp Denies cough, Denies dyspnea, Denies wheezing and Denies other (shortness of breath) Musc Denies numbness and Denies tingling Neuro Denies dizziness, Denies headache(s), Denies numbness, Denies tingling and Denies weakness Psych Denies anxiety and Denies depression Endo Denies fatigue Aller/Immun Denies wheezing Physical exam (Primary Care) Vital Signs: Last Vital Signs Pulse 88 01/30/25 14:33 BP 108/60 01/30/25 14:33 Pulse Ox 96 01/30/25 14:33 Oxygen Delivery Method Room Air 01/30/25 14:33 BMI result Body Mass Index 33.2 Tobacco/Smoking Status: Tobacco use Status Tobacco use date assessed 01/30/25 01/30/25 14:40 Patient Tobacco Use Status Current someday Tobacco 01/30/25 14:40 Tobacco use type Cigarette 01/30/25 14:40 e-Cigarette/Vaping Use Never Used 01/30/25 14:40 PHQ-9: PHQ-9 Score PHQ-9: Total score 1 01/30/25 14:40 Depression Screening Interpretation: Negative Thrive Assessment: Date of Thrive Assessment Date Thrive assessed 06/21/24 01/30/25 14:40 Currently or been in a relationship where the following occur: I choose not to answer Const General: well developed; No acute distress Nutritional Appearance: well nourished Orientation/consciousness: patient oriented x3 HENMT Head: Yes normocephalic and Yes atraumatic Eyes General: appearance normal, both eyes and all related structures Pupils: Equal, round and reactive pupils present EOM: EOMs intact bilaterally Resp Effort & Inspection: normal respiratory effort Neuro General: patient oriented x3 and gait normal Cranial nerves: Yes Equal, round and reactive pupils present Psych Affect: normal affect Results AMB Hemoglobin A1c AMB Hemoglobin A1c 5.9 % Last Edit by Brenda Longoria CMA on 01/30/25 14:48 Results Reviewed Results Reviewed: Laboratory Last Values Hgb A1c (Clinic) 5.9 % (4.0-6.0) 01/30/25 14:40 Coding Level of Care Code Est Pt Level 3 (81019) Diagnoses HTN (hypertension) I10 Diabetes type 2, controlled E11.9 ICD (implantable cardioverter-defibrillator) in place Z95.810 Nonischemic cardiomyopathy I42.8 Additional Codes PHQ-9 - 34887 - PHQ-9 Billing: Yes ([id number]) Assessment & Plan Assessment & Plan (1) HTN (hypertension): Code(s): I10 - Essential (primary) hypertension Category: Medical Plan: Blood pressure is well controlled. Goal is less than 130/80 Continue current medication (2) Diabetes type 2, controlled: Code(s): E11.9 - Type 2 diabetes mellitus without complications Category: Medical Plan: A1c 5.9% and steady. Good control. Goal is less than 7.0% Continue current medication Continue diabetic diet and exercise as tolerated (3) ICD (implantable cardioverter-defibrillator) in place: Comment: Medtronic dual-chamber ICD Code(s): Z95.810 - Presence of automatic (implantable) cardiac defibrillator Category: Medical (4) Nonischemic cardiomyopathy: Code(s): I42.8 - Other cardiomyopathies Category: Medical Plan Nonischemic cardiomyopathy and has ICD Stable and followed by cardiology Orders: Orders AMB Hemoglobin A1c Today Z13.9 - Encounter for screening, unspecified Comprehensive [place]. Panel Fast Today Z00.00 - Encounter for general adult medical examination without abnormal findings Lipid Panel Today Z00.00 - Encounter for general adult medical examination without abnormal findings Microalbumin, Random (w Creat) Today I10 - Essential (primary) hypertension Vitamin D 25-OH Total Today E55.9 - Vitamin D deficiency, unspecified Complete Blood Count Auto Diff Today Z00.00 - Encounter for general adult medical examination without abnormal findings UA CC w/rflx Micro + Cult Today Z00.00 - Encounter for general adult medical examination without abnormal findings TSH reflex Free T4 Today Z00.00 - Encounter for general adult medical examination without abnormal findings Medications: Refilled food supplemt, lactose-reduced (Ensure oral liquid) 1 ea PO DAILY 6,636 mL 4RF 28 days I42.8 - Other cardiomyopathies, I47.29 - Other ventricular tachycardia, I50.20 - Unspecified systolic (congestive) heart failure
--- OUTSIDE RECORDS SUMMARY | 2025-01-30 16:22 | XMS_ITS | Clinical Summary ---
Author Organization [facility] Address [address] [place] [address] Care Team Providers Care Chemical Production Technician Name Role Phone Kushal Baker MD Primary Care Provider Carlito Santos MD Unavailable [phone] Allergies No known active allergies Medications furosemide (LASIX) 40 MG tablet Take 80 [...] (11/06/2017): Added automatically from request for surgery [id number] AICD lead malfunction 11/06/2017 Overview (11/06/2017): Added automatically from request for surgery [id number] Family History Medical History Relation Name Comments Heart attack Father Heart disease Father Blood Clots Mother Relation Name Status Comments Father Mother Social History Tobacco Use Types Packs/Day Years Used Date Smoking Tobacco: Former Cigarettes Q uit: 04/14/2017 Smokeless Tobacco: Never Alcohol Use Standard Drinks/Week Comments Yes 0 (1 standard drink = 0.6 oz pur e alcohol) occasionally. Limited intake Comments Unknown Sex and Gender Information Value Date Recorded Sex Assigned at Not on file Legal Sex Female 3:38 PM EDT Gender Identity Not on file Sexual Orientation Not on file Last Filed Vital Signs Vital Sign Reading Time Taken Comments Blood Pressure 96/54 11/17/2017 8:00 AM EDT Pulse 66 11/17/2017 8:00 AM EDT Temperature 36.2 C (97.1 F) 11/17/2017 8:00 AM EDT Respiratory Rate 16 11/17/2017 8:00 AM EDT [...] Zoster (Shingles) Vaccine (1 of 2) 2011 RSV Vaccine 60 years and old er and Patients (1 - Risk 60-74 years 1-dose series) 2021 Influenza Vaccine 12/02/2024 COVID-19 Vaccine (2023-2 5 season) 2025 Hepatitis B Vaccines Aged Out No long er eligible based on patient's age to complete this topic Medical Devices Implanted Type Area Reserve Operator Device Identifier Shelf Expiration Date Model / Serial / Lot Evera Mri Xt Dr [id number] Icd-07/30/2015 Implanted: 016 (Quantity not on file) ICD / [id number] / [id number] Capsurefix Novus Mri Lead-07/30/2015 Implanted: 016 (Quantity not on file) Lead / [id number] / 6935m Sprint Quattro Mri-07/30/2015 Implanted: 016 (Quantity not on file) Explanted: 018 by Carlito Santos MD (Quantity not on file) Lead / [id number] / Lead Pacing 55cm Right Vntrc Df-4 Tripolar Screw - [id number] Implanted:Qty: 1 on 11/16/2017 by Carlito Santos MD at [facility] Lead [employer] AORTIC AND PERIPHERA 07/16/2019 6935M-55 / [id number] / Envelope Absorbable 3.3x2.9in Tyrx Polyarylate Minocycline - [id number] Implanted:Qty: 1 on 11/16/2017 by Carlito Santos MD at [facility] Mesh [employer] AORTIC AND PERIPHERA 01/31/2018 [id number] / / [id number] Insurance MEDICAID OUT OF STATE [facility] [place] MED[place]UE [place]GD MEDICARE Advance Directives * Full Code (Latest Code Status on File) Date Activated Date Inactivated Comments 11/16/2017 11:41 AM Question Answer Comments Decision Thoroughly Discussed with: Patient Care Teams Chemical Production Technician Relationship Specialty Start Date End Date Kushal Baker MD [address] [place] [address] Dr Dominguez [address] [place] [id number] PCP - General Internal Medicine 11/16/17 Carlito Santos MD [address] [place] [address] [place] [address] Consulting Provider Cardiovascular Disease 11/16/17 Lico Acevedo MD [facility] Senior Officer [address], [address] [place] [address] Consulting Provider Cardiovascular Disease 11/16/17
--- OUTSIDE RECORDS SUMMARY | 2025-01-30 16:22 | XMS_ITS | Clinical Summary ---
Author Organization [employer] Address [address] [facility] [address] [place] [address] Care Team Providers Care Gizzard Puller Name Role Phone Unavailable Primary Care Provider Unavailabl e Allergies No known active allergies Medications Entresto 24-26 MG tablet Take 1 tablet by mouth 2 times daily. Active Jardiance 10 MG Take 1 tablet by mouth Once per day. 05/20/2024 Active furosemide (Lasix) 40 MG tablet Take 40 mg by mouth 2 times daily. Active ibuprofen 600 MG tablet take 1 tablet by mouth 3 times a day as needed for pain Active ALPRAZolam (Xanax) 0.5 MG tablet Take 1 tablet by mouth every 6 (six) hours during the day. 07/05/2024 Active carvedilol (Coreg) 12.5 MG tablet Take 1 tablet by mouth 2 times daily. 06/10/2024 Active gabapentin (Neurontin) 600 MG tablet Take 1 tablet by mouth every 6 (six) hours. 07/05/2024 Active Active Problems Problem Noted Date Diagnosed Date Anxiety 11/16/2017 Chronic pain syndrome 11/16/2017 DVT (deep venous thrombosis) 11/16/2017 NSVT (nonsustained ventricular tachycardia) ([facility]) 11/16/2017 Pulmonary embolism 11/16/2017 S/P ICD (internal cardiac defibrillator) procedu re 11/16/2017 AICD lead malfunction 11/06/2017 Overview (08/17/2024): Added automatically from request for surgery [id number] NICM (nonischemic cardiomyopathy) ([facility]) 10/2017 Overview (08/17/2024): Added automatically from request for surgery [id number] Encounters Date Type Department Care Team Description 12/20/2024 9:00 AM EDT Office Visit [facility] [address] [place] [address] Joanne Samuel BDS 12/13/2024 Travel from Last 3 Months Social History Tobacco Use Types Packs/Day Years Used Date Smoking Tobacco: Some Days Cigarettes Smokeless Tobacco: Never Tobacco Cessation:Ready to Q uit: Not Asked; Counseling Given: Not Answered Alcohol Use Standard Drinks/Week Comments Never 0 (1 standard drink = 0.6 oz pur e alcohol) Comments Unknown Sex and Gender Information Value Date Recorded Sex Assigned at Female 07/26/2024 10:22 AM EDT Legal Sex Female 10:20 AM EDT Gender Identity Female 07/26/2024 10:22 AM EDT Sexual Orientation Choose not to disclose 2024 10:22 AM EDT Last Filed Vital Signs Vital Sign Reading Time Taken Comments Blood Pressure 114/68 12/20/2024 9:03 AM EDT Pulse 58 08/17/2024 10:02 AM EDT Temperature - - Respiratory Rate - - Oxygen Saturation - - Inhaled Oxygen Concentration - - Weight - - Height - - Body Mass Index - - Plan of Treatment Health Maintenance Due Date Last Done Comments CT Colonography 1961 Colonoscopy 1961 Colorectal Cancer Screening 1961 Dental Prophylaxis 1961 Depression Screening 1961 FIT DNA/Cologuard 1961 FIT 1961 FOBT 1961 HIV Screening 1961 Lipid Panel 1961 SDOH Screening 1961 Sigmoidoscopy 1961 Disability Screening 1961 Alcohol/Substance Use Screening 1973 Hepatitis C Screening 1979 DTaP/Tdap/Td Vaccines (1 - Tdap) 02/05/1980 Pneumococcal Vaccine: 50+ Ye ars (1 of 2 - PCV) 02/05/1980 Pap Smear 1982 Cervical Cancer Screening 1991 HPV/Cotest 1991 Mammogram 2001 Zoster Vaccines (1 of 2) 2011 COVID-19 Vaccine (2 - 2024-2 6 season) 2025 03/29/2021 Influenza Vaccine (#1) 2025 Dental Oral Exam 02/02/2025 08/02/2024 Dental X-Ray: Bitewings 08/03/2025 08/02/2024 Tobacco Screening 12/20/2025 12/20/2024 Dental X-Ray: Full Mouth 08/04/2027 08/02/2024 RSV Patients and Pa tients Aged 60 years or older (1 - 1-dose 75+ series) 02/05/2036 HIB Vaccines Aged Out No longer eligi ble based on patient's age to complete this topic HPV Vaccines Aged Out No longer eligi ble based on patient's age to complete this topic Hepatitis A Vaccines Aged Out No long er eligible based on patient's age to complete this topic Hepatitis B Vaccines Aged Out No long er eligible based on patient's age to complete this topic IPV Vaccines Aged Out No longer eligi ble based on patient's age to complete this topic Meningococcal B Vaccine Aged Out No l onger eligible based on patient's age to complete this topic Meningococcal Vaccine Aged Out No shanthi tyson eligible based on patient's age to complete this topic RSV under 20 months Aged Out No longe r eligible based on patient's age to complete this topic Rotavirus Vaccines Aged Out No longer eligible based on patient's age to complete this topic Procedures Procedure Name Priority Date/Time Associated Diagnosis Comments CASE PRESENTATION, DETAILED AND EXTENSIVE TREATMENT PLANNING Routine 12/20/2024 9:00 AM EDT 25 MIFL RESIN-BASED COMPOSITE - 4 OR MORE SURFACES (ANTERIOR) Routine 12/20/2024 9:00 AM EDT 24 MYKEL RESIN-BASED COMPOSITE - 3 SURF, ANTERIOR Routine 12/20/2024 9:00 AM EDT 26 MF RESIN-BASED COMPOSITE - 2 SURF, ANTERIOR Routine 12/20/2024 9:00 AM EDT 21 B(V) RESIN-BASED COMPOSITE - 1 SURF, POSTERIOR Routine 12/20/2024 9:00 AM EDT 28 B(V) RESIN-BASED COMPOSITE - 1 SURF, POSTERIOR Routine 12/20/2024 9:00 AM EDT INTRAORAL - COMPLETE SERIES OF RADIOGRAPHIC IMAGES Routine 08/02/2024 3:00 PM EDT COMPREHENSIVE ORAL EVALUATION - NEW OR ESTABLISHED PATIENT Routine 08/02/2024 3:00 PM EDT from Last 3 Months or Most Recently Relevant to Health Maintenance Insurance [facility] MEDICAID STAND ADULT
--- OUTSIDE RECORDS SUMMARY | 2025-01-30 16:22 | XMS_ITS | Encounter Summary ---
Author Organization [facility] Address [address] [place] [address] Care Team Providers Care Roll Examiner Name Role Phone Nima Thapa MD Primary Care Provider [phone] Kushal Baker MD Primary Care Provider [phone] Carlito Santos MD Unavailable [phone] Encounter Details Date Type Department Care Team (Late st Contact Info) Description 11/13/2017 Scanned Document [facility] [place] [address] [address] Carlito Santos MD [facility] [place] [address] [facility] A Social History Tobacco Use [...] on filedocumented in this encounter Care Teams Roll Examiner Relationship Specialty Start Date End Date Nima Thapa MD [address] [facility] [address] [place] [address] PCP - General 11/06/17 11/15/17 Kushal Baker MD [address] [place] [address] [place] [address] PCP - General Internal Medicine 11/16/17 Carlito Santos MD [address] [place] [address] [place] [address] Consulting Provider Cardiovascular Disease 11/16/17 Lico Acevedo MD [facility] Interlocking And Signal Mechanic [address] [place] [address], [address] [place] [address] Consulting Provider Cardiovascular Disease 11/16/17 documented as of this encounter
--- OUTSIDE RECORDS SUMMARY | 2025-01-30 16:22 | XMS_ITS | Encounter Summary ---
Author Organization [facility] Address [address] [place] [address] Care Team Providers Care Sponge Press Operator Name Role Phone Nima Thapa MD Primary Care Provider [phone] Kushal Baker MD Primary Care Provider Carlito Santos MD Unavailable [phone] Encounter Details Date Type Department Care Team (Late st Contact Info) Description 11/13/2017 Scanned Document [facility] [place] [address] [address] Carlito Santos MD [facility] [place] [address] [facility] A Social History Tobacco Use Types [...] on filedocumented in this encounter Care Teams Sponge Press Operator Relationship Specialty Start Date End Date Nima Thapa MD [address] [facility] [address] [place] [address] PCP - General 11/06/17 11/15/17 Kushal Baker MD [address] [place] [address] [place] [address] PCP - General Internal Medicine 11/16/17 Carlito Santos MD [address] [place] [address] [place] [address] Consulting Provider Cardiovascular Disease 11/16/17 Lico Acevedo MD [facility] Scrap Preparation Supervisor [address] [place] [address], [address] [place] [address] Consulting Provider Cardiovascular Disease 11/16/17 documented as of this encounter
== END 2025-01-30 15:08 | disposition home or self-care (01) ==
LOC: HO.HMCFM 14:32
PROVIDERS: PCP Family Medicine; Visit Provider Family Medicine
DX: I10 Essential (primary) hypertension (principal); E11.9 Type 2 diabetes mellitus without complications; Z95.810 Presence of automatic (implantable) cardiac defibrillator; I42.8 Other cardiomyopathies; Z13.9 Encounter for screening, unspecified

== ENCOUNTER → 2025-01-30 14:31 | Outpatient (BNVA) | payer MEDICARE, SELFPAY | PROVIDERS: PCP Family Medicine; Visit Provider Family Medicine | DX: I10 Essential (primary) hypertension (principal); E11.9 Type 2 diabetes mellitus without complications; I42.8 Other cardiomyopathies; Z95.810 Presence of automatic (implantable) cardiac defibrillator | CPT/HCPCS: 83036; 96127; 99212 ==

== ENCOUNTER → 2025-04-19 15:06 | Outpatient (BNV) | payer MEDICARE, SELFPAY | PROVIDERS: PCP Family Medicine; Visit Provider Internal Medicine Cardiovascular Disease | DX: I50.9 Heart failure, unspecified (principal); Z45.02 Encounter for adjustment and management of automatic implantable cardiac defibrillator | CPT/HCPCS: 93295 ==

== ENCOUNTER → 2025-04-19 15:13 | Outpatient (BNV) | payer MEDICARE, SELFPAY | PROVIDERS: PCP Family Medicine; Visit Provider Internal Medicine Cardiovascular Disease | DX: Z95.810 Presence of automatic (implantable) cardiac defibrillator (principal) | CPT/HCPCS: 93297 ==

== ENCOUNTER 2025-05-02 09:29 | Outpatient (REF) | payer MEDICARE, SELFPAY ==
[2025-05-02 11:33] LABS: MANUAL DIFF FLAG NO
[2025-05-02 11:37] LABS: Hematocrit 40.9 % (37.0-47.0); Hemoglobin 13.4 g/dl (12.0-16.0); Imm Gran Abs Auto 0.02 X10*3/uL (0.00-0.03); Imm Gran Pct Auto 0.3 % (0.0-0.4); Lymphocytes Absolute Auto 1.9 X10*3/uL (1.2-4.9); Mean Corpuscular HGB Conc 32.8 g/dl (31.0-35.0); Mean Corpuscular Hemoglobin 29.5 pg (27.0-33.0); Mean Corpuscular Volume 89.9 fL (80.0-98.0); NRBC Abs Auto 0.000 X10*3/uL (0.0-0.012); NRBC Pct Auto 0.0 /100WBC (0.0-0.2); Platelet Count 264 X10*3/uL (160-400); Red Blood Count 4.55 X10*6/uL (4.20-5.50); White Blood Count 6.2 X10*3/uL (4.8-10.8)
--- OUTSIDE RECORDS SUMMARY | 2025-05-02 12:11 | XMS_ITS | Clinical Summary ---
Author Organization [facility] Address [address] [place] [address] Care Team Providers Care Heel Seat Filler Name Role Phone Kushal Baker MD Primary [...] (11/06/2017): Added automatically from request for surgery [id number] AICD lead malfunction 11/06/2017 Overview (11/06/2017): Added automatically from request for surgery [id number] Family History Medical History Relation Name Comments Heart attack Father Heart disease Father Blood Clots Mother Relation Name Status Comments Father Mother Social History Tobacco Use Types Packs/Day Years Used Date Smoking Tobacco: Former Cigarettes 0 Q uit: 04/14/2017 Smokeless Tobacco: Never Alcohol [...] 50+ (1 of 1 - PCV) 2011 RSV Vaccine 50 years and old er and Patients (1 - Risk 50-74 years 1-dose series) 2011 Zoster (Shingles) Vaccine (1 of 2) 2011 Influenza Vaccine 12/02/2024 COVID-19 Vaccine (2024-2 6 season) 2025 Hepatitis B Vaccines Aged Out No long er eligible based on patient's age to complete this topic Medical Devices Implanted Type Area Sports Lawyer Device Identifier Shelf Expiration Date Model / Serial / Lot Evera Mri Xt Dr [id number] Icd-07/30/2015 Implanted: 016 (Quantity not on file) ICD / [id number] / [id number] Capsurefix Novus Mri Lead-07/30/2015 Implanted: 016 (Quantity not on file) Lead / [id number] / 6935m Sprint Quattro Mri-07/30/2015 Implanted: 016 (Quantity not on file) Explanted: 018 by Carlito Santos MD (Quantity not on file) Lead / [id number] / Lead Pacing 55cm Right Vntrc Df-4 Tripolar Screw - [id number] Implanted:Qty: 1 on 11/16/2017 by Carlito Santos MD at [facility] Lead [employer] MINIMALLY INVASIVE T 07/16/2019 6935M-55 / [id number] / Envelope Absorbable 3.3x2.9in Tyrx Polyarylate Minocycline - [id number] Implanted:Qty: 1 on 11/16/2017 by Carlito Santos MD at [facility] Mesh [employer] MINIMALLY INVASIVE T 01/31/2018 [id number] / / [id number] Insurance MED[place]ID OUT OF [place] [facility] [place] MEDIC[place] Advance Directives * Full Code (Latest Code Status on File) Date Activated Date Inactivated Comments 11/16/2017 11:41 AM Question Answer Comments Decision Thoroughly Discussed with: Patient Care Teams Heel Seat Filler Relationship Specialty Start Date End Date Kushal Baker MD [address] [place] [address] Dr Dominguez [address] [place] [address] PCP - General Internal Medicine 11/16/17 Carlito Santos MD [address] [place] [address] [place] [address] Consulting Provider Cardiovascular Disease 11/16/17 Lico Acevedo MD [facility] [address] [facility], [address] [place] [address] Consulting Provider Cardiovascular Disease 11/16/17
--- OUTSIDE RECORDS SUMMARY | 2025-05-02 12:11 | XMS_ITS | Clinical Summary ---
Author Organization [employer] Address [address] [facility] 7t [place] [address] Care Team Providers Care Icebox Worker Name Role Phone Unavailable Primary Care Provider [...] venous thrombosis) 11/16/2017 NSVT (nonsustained ventricular tachycardia) ([facility]) 11/16/2017 Pulmonary embolism 11/16/2017 S/P ICD (internal cardiac defibrillator) procedu re 11/16/2017 AICD lead malfunction 11/06/2017 Overview (08/17/2024): Added automatically from request for surgery [id number] NICM (nonischemic cardiomyopathy) ([facility]) 10/2017 Overview (08/17/2024): Added automatically from request for surgery [id number] Social History Tobacco Use Types Packs/Day Years [...] Procedure Name Priority Date/Time Associated Diagnosis Comments INTRAORAL - COMPLETE SERIES OF RADIOGRAPHIC IMAGES Routine 08/02/2024 3:00 PM EDT COMPREHENSIVE ORAL EVALUATION - NEW OR ESTABLISHED PATIENT Routine 08/02/2024 3:00 PM EDT from Last 3 Months or Most Recently Relevant to Health Maintenance Insurance [facility] MEDICAID STAND ADULT
--- OUTSIDE RECORDS SUMMARY | 2025-05-02 12:11 | XMS_ITS | Encounter Summary ---
Author Organization [facility] Address [address] [place] [address] Care Team Providers Care Coffin Maker Name Role Phone Nima Thapa MD Primary Care Provider +1- [phone] Kushal Baker MD Primary Care Provider Carlito Santos MD Unavailable [phone] Encounter Details Date Type Department Care Team (Late st Contact Info) Description 11/13/2017 Scanned Document [facility] [address] [place] [address] Carlito Santos MD [facility] [address] Alberto A Social History Tobacco Use Types Packs/Day [...] on file documented as of this encounter Mental Status * Question Answer Entry Date Author Cognitive/Neuro/Behavioral WDL WDL 11/16/2017 8:00 PM EDT Sonia Alvarez RN documented in this encounter Plan of Treatment Not on file documented as of this encounter Visit Diagnoses Not on filedocumented in this encounter Care Teams Coffin Maker Relationship Specialty Start Date End Date Nima Thapa MD [address] [facility] [address] [place] [address] PCP - General 11/06/17 11/15/17 Kushal Baker MD [address] [place] [address] Dr Dominugez [address] [place] [address] PCP - General Internal Medicine 11/16/17 Carlito Santos MD [address] [place] [address] [place] [address] Consulting Provider Cardiovascular Disease 11/16/17 Lico Acevedo MD [facility] Department Sales Manager [address] [facility], [address] [place], [place] [id number] Consulting Provider Cardiovascular Disease 11/16/17 documented as of this encounter
--- OUTSIDE RECORDS SUMMARY | 2025-05-02 12:11 | XMS_ITS | Encounter Summary ---
Author Organization [facility] Address [address] [place] [address] Care Team Providers Care Gum Rolling Machine Operator Name Role Phone Nima Thapa MD Primary Care Provider +1- [phone] Kushal Baker MD Primary Care Provider Carlito Santos MD Unavailable [phone] Encounter Details Date Type Department Care Team (Late st Contact Info) Description 11/13/2017 Scanned Document [facility] [place] [address] [place] [address] Carlito Santos MD [facility] [place] [address] [place] A Social History Tobacco Use [...] on filedocumented in this encounter Care Teams Gum Rolling Machine Operator Relationship Specialty Start Date End Date Nima Thapa MD [address] [facility] [address] [place] [address] PCP - General 11/06/17 11/15/17 Kushal Baker MD [address] [place] [address] Dr Dominguez [address] [place] [address] PCP - General Internal Medicine 11/16/17 Carlito Santos MD [address] [place] [address] [place] [address] Consulting Provider Cardiovascular Disease 11/16/17 Lico Acevedo MD [facility] Seat Mender [address] [facility], [address] [place], [place] [id number] Consulting Provider Cardiovascular Disease 11/16/17 documented as of this encounter
[2025-05-02 12:34] LABS: Alanine Aminotransferase 24 U/L (0-31); Albumin Level 4.0 g/dL (3.5-5.0); Alkaline Phosphatase 111 U/L (39-117); Anion Gap 11 (12-20); Aspartate Amino Transferase 26 U/L (5-31); Blood Urea Nitrogen 31 mg/dL (9-16); Calcium 9.1 mg/dL (8.4-10.2); Carbon Dioxide 25 mmol/L (22-29); Chloride 107 mmol/L (96-108); Cholesterol 172 mg/dL (<200); Estimated Glomerular Filt Rate 45; HDL Cholesterol 48 mg/dL (>40); Potassium 3.9 mmol/L (3.3-5.1); Sodium 139 mmol/L (135-145); Total Protein 6.7 g/dL (6.5-8.0); Triglycerides 78 mg/dL (<150)
== END 2025-05-02 09:30 | disposition home or self-care (01) ==
LOC: HO.WFDLDS 09:29
PROVIDERS: Visit Provider Family Medicine
DX: Z00.00 Encounter for general adult medical examination without abnormal findings (principal); E55.9 Vitamin D deficiency, unspecified; Z13.6 Encounter for screening for cardiovascular disorders; Z13.29 Encounter for screening for other suspected endocrine disorder
CPT/HCPCS: 36415; 80053; 80061; 82306; 84443; 85025

== ENCOUNTER 2025-05-03 10:50 | Outpatient (AMB) | payer MEDICARE, SELFPAY ==
--- NOTE | 2025-05-03 10:54 | A.OFFPC_ITS ---
Vital Signs 05/03/25 11:08 Height 5 ft 5 in Weight 197 lb BMI 32.8 BP 96/70 Blood Pressure Location Rt brachial Position Sitting Pulse 90 Pulse Source Pulse Oximeter Pulse Oximetry (%) 98 Oxygen Delivery Method Room Air Intake Visit Reasons: f/u diabetes, HTN Intake Note: Xioamra is a 65 year old female who presents today for a follow up of her diabetes and hypertension. Allergies No Known Allergies Allergy (Verified 05/03/25 11:09) Medication List - Last Reconciled 05/03/25 by Jacob Radford MD alprazolam 0.5 mg PO TID buprenorphine-naloxone 8-2 mg 0 mg sublingual carvedilol 12.5 mg PO BID empagliflozin (Jardiance) 10 mg PO DAILY food supplemt, lactose-reduced (Ensure oral liquid) 1 ea PO DAILY 28 days furosemide 40 mg PO BID gabapentin 800 mg PO BEDTIME 90 days gabapentin 600 mg PO QID ibuprofen 600 mg PO TID PRN sacubitril-valsartan 24-26 mg 1 tab PO BID walker Light Weight Walker. Daily As directed, 999 days Tobacco use date assessed: 01/30/25 Dental Screening Dental Screen Date: 01/30/25 HPI f/u diabetes, HTN HPI Details 65 y/o female presents to f/u diabetes, HTN, labs. Labs drawn 05/02/25. Reviewed labs with pt. Triglycerides 78. TC 172. LDL 109. HDL 48. BP today 96/70, 90p. She is on sacubitril-valsartan 24-26 mg b.i.d, carvedilol 12.5mg b.i.d. Unable to acquire A1c as machine is not working today. [facility] Medical History Heart failure with reduced ejection fraction Nonischemic cardiomyopathy ICD (implantable cardioverter-defibrillator) in place Edema Surgical History History of surgery on lower extremity (2020) History of implantable cardiac defibrillator (ICD) (~07/2015) History of left knee surgery Hx of cholecystectomy Family History Father CVD (cardiovascular disease) Mother CVD (cardiovascular disease) Pulmonary embolism Brother No problems noted. Brother No problems noted. Son No problems noted. Daughter No problems noted. Social History (Reviewed 01/30/25 @ 14:37 by Brenda Longoria [facility]) Housing: House Patient Tobacco Use Status: Current someday Tobacco user Tobacco use type: Cigarette Cigarettes Per Day: 2 e-Cigarette/Vaping Use: Never Used Second Hand Smoke Exposure: No service: No Current occupational status: disabled Current occupational exposures/hazards: No Cognitive needs: No Hearing needs: No Vision needs: No Questionnaire Thrive Questionnaire Date Thrive assessed: 06/21/24 I am a: Patient What is your living situation today?: I have a steady place to live Within the past 12 months, did the food you bought not last and you didn't have the money to get more?: Sometimes True Within the past 12 months, did you worry whether your food would run out before you got money to buy more?: Sometimes True Do you have trouble paying for medicines?: No Do you have trouble getting transportation to medical appointments?: No Do you have trouble paying your heating and electricity bill?: No Do you have trouble taking care of your child, family member or friend?: No Do you have trouble with day-to-day activities such as bathing, preparing meals, shopping, managing finances, etc.?: Yes Are you currently unemployed and looking for a job?: No Are you interested in more education?: No Currently or been in a relationship where the following occur: I choose not to answer THRIVE Score: 2 YOMAIRA-7 AMB Questionnaire YOMAIRA-7 Date YOMAIRA - 7 assessed: 06/21/24 Source: Developed by Drs. Nitesh Mcarthur, Julieta Champion, Bill Lanza and colleagues, with an educational everardo from [employer]. Review of Systems Const Denies chills, Denies fatigue, Denies fever(s), Denies headache(s) and Denies weakness ENT Denies dizziness and Denies headache(s) Card Denies chest pain, Denies lightheadedness, Denies dyspnea and Denies other (Palpitations) Resp Denies cough, Denies dyspnea, Denies wheezing and Denies other ( shortness of breath) Musc Denies numbness and Denies tingling Neuro Denies dizziness, Denies headache(s), Denies numbness, Denies tingling, Denies paresthesias and Denies weakness Psych Denies anxiety and Denies depression Endo Denies fatigue Aller/Immun Denies wheezing Physical exam (Primary Care) Vital Signs: Last Vital Signs Pulse 90 05/03/25 11:08 BP 96/70 05/03/25 11:08 Pulse Ox 98 05/03/25 11:08 Oxygen Delivery Method Room Air 05/03/25 11:08 BMI result Body Mass Index 32.8 Tobacco/Smoking Status: Tobacco use Status Tobacco use date assessed 01/30/25 05/03/25 10:56 Patient Tobacco Use Status Current someday Tobacco 05/03/25 10:56 Tobacco use type Cigarette 05/03/25 10:56 e-Cigarette/Vaping Use Never Used 05/03/25 10:56 Thrive Assessment: Date of Thrive Assessment Date Thrive assessed 06/21/24 05/03/25 10:56 Currently or been in a relationship where the following occur: I choose not to answer Const General: no acute distress and well developed Nutritional Appearance: well nourished Orientation/consciousness: patient oriented x3 HENMT Other: Dry mucuous membranes Head: Yes normocephalic and Yes atraumatic Eyes General: appearance normal, both eyes and all related structures Pupils: Equal, round and reactive pupils present EOM: EOMs intact bilaterally Resp Effort & Inspection: normal respiratory effort Auscultation: clear to auscultation bilaterally Cardio Rate: regular rate Rhythm: regular rhythm Heart sounds: S1 normal heart sound present, S2 normal heart sound present, no gallops, no murmurs and no rubs Neuro General: patient oriented x3 and gait normal Cranial nerves: Yes Equal, round and reactive pupils present Psych Affect: normal affect Coding Level of Care Code Est Pt Level 4 (19770) Diagnoses Diabetes type 2, controlled E11.9 HTN (hypertension) I10 Elevated LDL cholesterol level E78.00 Stage 3a chronic kidney disease (CKD) N18.31 Assessment & Plan Assessment & Plan (1) Diabetes type 2, controlled: Code(s): E11.9 - Type 2 diabetes mellitus without complications Category: Medical Plan: Was unable to acquire A1c as she does not working today. Fasting blood sugar yesterday was 96 Prior A1c was 5.9%; good control. Will recheck this with next blood draw Continue current medication regimen (2) HTN (hypertension): Code(s): I10 - Essential (primary) hypertension Category: Medical Plan: Blood pressure is a little on the low side today. Goal is less than 130/80 She appears mildly dry No change to her blood pressure medications. Increase hydration. (3) Elevated LDL cholesterol level: Code(s): E78.00 - Pure hypercholesterolemia, unspecified Category: Medical Plan: LDL cholesterol 109 which is mildly elevated. Recommend she work on a diet lower in saturated fats and cholesterol. She can discuss with her customer marketing assistant at their upcoming appointment. (4) Stage 3a chronic kidney disease (CKD): Code(s): N18.31 - Chronic kidney disease, stage 3a Category: Medical Plan: Mild CKD stage 3a. Increase hydration Control blood pressure, blood sugar and lipids Caution with NSAIDs Orders: Orders Hemoglobin A1c Today R73.01 - Impaired fasting glucose Comprehensive [place]. Panel Fast Today N18.31 - Chronic kidney disease, stage 3a, Z00.00 - Encounter for general adult medical examination without abnormal findings Microalbumin, Random (w Creat) Today E11.9 - Type 2 diabetes mellitus without complications, I10 - Essential (primary) hypertension
[2025-05-03 11:08] VITALS: BP 96/70; PULSE 90; O2SAT 98; BMI 32.8
--- OUTSIDE RECORDS SUMMARY | 2025-05-03 12:20 | XMS_ITS | Clinical Summary ---
Author Organization [employer] Address [address] [facility] 7t [place] [address] Care Team Providers Care Manager Fire Name Role Phone Unavailable Primary Care Provider [...] venous thrombosis) 11/16/2017 NSVT (nonsustained ventricular tachycardia) ([facility]) 11/16/2017 Pulmonary embolism 11/16/2017 S/P ICD (internal cardiac defibrillator) procedu re 11/16/2017 AICD lead malfunction 11/06/2017 Overview (08/17/2024): Added automatically from request for surgery [id number] NICM (nonischemic cardiomyopathy) ([facility]) 10/2017 Overview (08/17/2024): Added automatically from request for surgery [id number] Social History Tobacco Use Types Packs/Day Years [...] Most Recently Relevant to Health Maintenance Insurance [facility] MEDICAID STAND ADULT
--- OUTSIDE RECORDS SUMMARY | 2025-05-03 12:20 | XMS_ITS | Clinical Summary ---
Author Organization [facility] Address [address] [place] [address] Care Team Providers Care Ream Cutter Name Role Phone Kushal Baker MD Primary [...] (11/06/2017): Added automatically from request for surgery [id number] AICD lead malfunction 11/06/2017 Overview (11/06/2017): Added automatically from request for surgery [id number] Family History Medical History Relation Name Comments [...] this topic Medical Devices Implanted Type Area Automotive Hardware Engineer Device Identifier Shelf Expiration Date Model / Serial / Lot Evera Mri Xt Dr [id number] Icd-07/30/2015 Implanted: 016 (Quantity not on file) ICD / [id number] / [id number] Capsurefix Novus Mri Lead-07/30/2015 Implanted: 016 (Quantity not on file) Lead / [id number] / 6935m Sprint Quattro Mri-07/30/2015 Implanted: 016 (Quantity not on file) Explanted: 018 by Carlito Santos MD (Quantity not on file) Lead / [id number] / Lead Pacing 55cm Right Vntrc Df-4 Tripolar Screw - [id number] Implanted:Qty: 1 on 11/16/2017 by Carlito Santos MD at [facility] Lead [employer] MINIMALLY INVASIVE T 07/16/2019 [id number] / [id number] / Envelope Absorbable 3.3x2.9in Tyrx Polyarylate Minocycline - [id number] Implanted:Qty: 1 on 11/16/2017 by Carlito Santos MD at [facility] Mesh [employer] MINIMALLY INVASIVE T 01/31/2018 [id number] / / [id number] Insurance MEDICAID OUT OF STATE [facility] BLUE CROSS MEDIBLUE MGD MEDICARE Advance Directives * Full Code (Latest Code Status on File) Date Activated Date Inactivated Comments 11/16/2017 11:41 AM Question Answer Comments Decision Thoroughly Discussed with: Patient Care Teams Ream Cutter Relationship Specialty Start Date End Date Kushal Baker MD [address] [place] [address] Dr Dominguez [address] [place] [address] PCP - General Internal Medicine 11/16/17 Carlito Santos MD [address] [place] [address] [place] [address] Consulting Provider Cardiovascular Disease 11/16/17 iLco Acevedo MD [facility] Product Transfer Pumper [address] [facility], [address] [place] [address] Consulting Provider Cardiovascular Disease 11/16/17
--- OUTSIDE RECORDS SUMMARY | 2025-05-03 12:20 | XMS_ITS | Encounter Summary ---
Author Organization [facility] Address [address] [place] [address] Care Team Providers Care Cottrell Blower Name Role Phone Nima Thapa MD Primary Care Provider +- [phone] Kushal Baker MD Primary Care Provider Carlito Santos MD Unavailable [phone] Encounter Details Date Type Department Care Team (Late st Contact Info) Description 11/13/2017 Scanned Document [facility] [place] [address] [place] [address] Carlito Santos MD [facility] [address] [place] A Social History Tobacco Use [...] on filedocumented in this encounter Care Teams Cottrell Blower Relationship Specialty Start Date End Date Nima Thapa MD [address] [facility] [address] [place] [address] PCP - General 11/06/17 11/15/17 Kushal Baker MD [address] [place] [address] Dr Dominguez [address] [place] [address] PCP - General Internal Medicine 11/16/17 Carlito Santos MD [address] [place] [address] [place] [address] Consulting Provider Cardiovascular Disease 11/16/17 Lico Acevedo MD [facility] Sewing Demonstrator [address] [facility], [address] [place], [place] [phone] Consulting Provider Cardiovascular Disease 11/16/17 documented as of this encounter
--- OUTSIDE RECORDS SUMMARY | 2025-05-03 12:20 | XMS_ITS | Encounter Summary ---
Author Organization [facility] Address [address] [place] [address] Care Team Providers Care Christmas Bell Ringer Name Role Phone Nima Thapa MD Primary Care Provider +- [phone] Kushal Baker MD Primary Care Provider Carlito Santos MD Unavailable [phone] Encounter Details Date Type Department Care Team (Late st Contact Info) Description 11/13/2017 Scanned Document [facility] [place] [address] [place] [address] Carlito Santos MD [facility] [address] [place] A Social History Tobacco Use [...] on filedocumented in this encounter Care Teams Christmas Bell Ringer Relationship Specialty Start Date End Date Nima Thapa MD [address] [facility] [address] [place] [address] PCP - General 11/06/17 11/15/17 Kushal Baker MD [address] [place] [address] Dr Dominguez [address] [place] [address] PCP - General Internal Medicine 11/16/17 Carlito Santos MD [address] [place] [address] [place] [address] Consulting Provider Cardiovascular Disease 11/16/17 Lico Acevedo MD [facility] Associate Manager Affiliate Marketing [address] [facility], [address] [place], [place] [phone] Consulting Provider Cardiovascular Disease 11/16/17 documented as of this encounter
== END 2025-05-03 11:54 | disposition home or self-care (01) ==
LOC: HO.HMCFM 10:51
PROVIDERS: PCP Family Medicine; Visit Provider Family Medicine
DX: E11.9 Type 2 diabetes mellitus without complications (principal); I10 Essential (primary) hypertension; E78.00 Pure hypercholesterolemia, unspecified; N18.31 Chronic kidney disease, stage 3a

== ENCOUNTER → 2025-05-03 10:50 | Outpatient (BNVA) | payer MEDICARE, SELFPAY | PROVIDERS: PCP Family Medicine; Visit Provider Family Medicine | DX: E11.22 Type 2 diabetes mellitus with diabetic chronic kidney disease (principal); I12.9 Hypertensive chronic kidney disease with stage 1 through stage 4 chronic kidney disease, or unspecified chronic kidney disease; N18.31 Chronic kidney disease, stage 3a; E78.00 Pure hypercholesterolemia, unspecified; R73.01 Impaired fasting glucose; Z00.00 Encounter for general adult medical examination without abnormal findings | CPT/HCPCS: 99212 ==